=== PATIENT | male | born 1960 | race Caucasian/White ===

== ENCOUNTER 2023-01-27 18:57 | Inpatient (IN) | payer MEDICARE, OTHER ==
--- NOTE | 2023-01-27 20:28 | ED ---
General Adult HPI - General Chief complaint: Shortness of Breath Stated complaint: L Hip Pain Time Seen by Provider: 01/27/23 19:01 Source: patient Mode of arrival: EMS Limitations: no limitations - History of Present Illness Initial comments: Ricky is a chronically ill 62-year-old diabetic him to our hospital as a transfer from outside hospital. Patient has a history of previous stroke with left-sided deficits, end-stage renal disease on dialysis. Over the past few months he's had recurrent ascites and pleural effusions requiring drainage. He was recently admitted at [facility] however was not able to be transferred back there today due to capacity. Patient was at [facility] and had some worsening shortness of breath and feeling unwell, she transferred outside hospital where workup revealed he had recurrent pleural effusions as well as whiteout of one lung suggestive of possible mucous plugging. Patient was transferred here for evaluation by pulmonology and nephrology. Patient complains of pain in her left hip from a bedsore and pain in his right arm from an IV that infiltrated in route to the hospital. Denies chest pain - Related Data Allergies Allergy/AdvReac Type Severity Reaction Status Date / Time clindamycin Allergy Rash/Hives Verified 01/27/23 19:50 doxycycline Allergy Rash/Hives Verified 01/27/23 19:50 ketorolac [From Toradol] Allergy Swelling Verified 01/27/23 19:25 methadone Allergy Rash/Hives Verified 01/27/23 19:25 metoclopramide [From Reglan] Allergy Swelling Verified 01/27/23 19:25 morphine Allergy Swelling Verified 01/27/23 19:50 nalbuphine [From Nubain] Allergy Swelling Verified 01/27/23 19:25 prochlorperazine Allergy Swelling Verified 01/27/23 19:25 [From Compazine] sertraline [From Zoloft] Allergy Unknown Verified 01/27/23 19:25 sulfamethoxazole Allergy Swelling Verified 01/27/23 19:25 [From Bactrim] tramadol [From Ultram] Allergy Swelling Verified 01/27/23 19:25 trimethoprim [From Bactrim] Allergy Swelling Verified 01/27/23 19:25 acetaminophen AdvReac Unknown Verified 01/27/23 19:50 [From Benadryl Allergy/Cold] blue dye AdvReac Unknown Verified 01/27/23 19:50 bumetanide [From Bumex] AdvReac Wheezing Verified 01/27/23 19:50 butorphanol AdvReac Swelling Verified 01/27/23 19:50 cephalexin [From Keflex] AdvReac Nausea Verified 01/27/23 19:50 diphenhydramine AdvReac Unknown Verified 01/27/23 19:50 [From Benadryl Allergy/Cold] lidocaine AdvReac Nausea & Verified 01/27/23 19:50 Vomiting phenylephrine AdvReac Unknown Verified 01/27/23 19:50 [From Benadryl Allergy/Cold] promethazine AdvReac Itching Verified 01/27/23 19:50 trimethobenzamide AdvReac Unknown Verified 01/27/23 19:50 altaryl Allergy Swelling Uncoded 01/27/23 19:25 yellow dye+ci Pigment Blue 63 AdvReac Unknown Uncoded 01/27/23 19:25 Review of Systems ROS Statement: Those systems with pertinent positive or pertinent negative responses have been documented in the HPI. ROS Other: All systems not noted in ROS Statement are negative. Past Medical History Past Medical History: COPD, CVA/TIA, Diabetes Mellitus, GERD/Reflux Additional Past Medical History / Comment(s): Allergic rhinitis, Balanitis, Basal cell carcinoma, bilateral epidymitis, cellulitis to head, cervical radiculopathy, chronic lower back pain, chronic neck pain, CVA with deficits to left side, PVD, Dialysis (Tue, Th, Sat), DVT, dysphasia, fatty liver, foot drop, gastritis, glaucoma, gout, Past Surgical History: Cholecystectomy Additional Past Surgical History / Comment(s): colonoscopy, decompression of ulnar nerve (left), Direct lateral lumbar interbody fusion, EGD, fusion anterior cervical spine, right knee arthroscopy, lumbar fusion, insertion spinal cord stimulator, lithotrisy, Past Psychological History: Anxiety, Depression Smoking Status: Never smoker Past Alcohol Use History: None Reported Past Drug Use History: None Reported General Exam - General Exam Comments Initial Comments: Physical Exam GENERAL: Chronically ill appearing HENT: Normocephalic, Atraumatic. EYES: PERRL, EOMI PULMONARY: Tachypnea Decreased breath sounds CARDIOVASCULAR: RRR ABDOMEN: Soft SKIN: Pale Left buttocks decub : Deferred NEUROLOGIC: Patient is alert and oriented x3. Left side deficits from previous stroke MUSCULOSKELETAL: Left sided deficits Limitations: no limitations Course Vital Signs 01/27/23 01/27/23 01/27/23 19:02 20:00 21:00 Temperature 98.2 F Pulse Rate 93 90 Respiratory 18 18 Rate Blood Pressure 124/60 137/65 O2 Sat by Pulse 100 100 Oximetry 01/27/23 21:17 Temperature Pulse Rate Respiratory 22 Rate Blood Pressure O2 Sat by Pulse Oximetry Medical Decision Making - Medical Decision Making Was pt. sent in by a medical professional or institution (, [facility], MEDICARE SALES EXECUTIVE, urgent care, hospital, or [facility]...) When possible be specific @Yes transfer from outside facility Did you speak to anyone other than the patient for history (EMS, parent, family, police, friend...)? What history was obtained from this source @ -EMS, transferring physician Dr Galindo Did you review nursing and triage notes (agree or disagree)? Why? @ -I reviewed and agree with nursing and triage notes Were old charts reviewed (outside hosp., previous admission, EMS record, old EKG, old radiological studies, urgent care reports/EKG's, [facility] records)? Report findings @ Transfer packet reviewed Differential Diagnosis (chest pain, altered mental status, abdominal pain women, abdominal pain men, vaginal bleeding, weakness, fever, dyspnea, syncope, headache, dizziness, GI bleed, back pain, seizure, CVA, palpatations, mental health)? @ -not applicable EKG interpreted by me (3pts min.). @ -As above X-rays interpreted by me (1pt min.). @ -None done CT interpreted by me (1pt min.). @ -None done U/S interpreted by me (1pt. min.). @ -None done What testing was considered but not performed or refused? (CT, X-rays, U/S, labs)? Why? @ -None What meds were considered but not given or refused? Why? @ Antibiotics - patient received prior to arrival Did you discuss the management of the patient with other professionals (professionals i.e. [facility] Reynolds, MEDICARE SALES EXECUTIVE, lab, RT, psych nurse, high school social science teacher, air tank assembler, teacher, customs officer, continuous pillowcase cutter)? Give summary @ -No Was smoking cessation discussed for >3mins.? @ -No Was critical care preformed (if so, how long)? @ -No Were there social determinants of health that impacted care today? How? (Homelessness, low income, unemployed, alcoholism, drug addiction, bang sportation, low edu. Level, literacy, decrease access to med. care, senior living, rehab)? @ -No Was there de-escalation of care discussed even if they declined (Discuss DNR or withdrawal of care, Hospice)? DNR status @ yes, patient wants to remain full code What co-morbidities impacted this encounter? (DM, HTN, Smoking, COPD, CAD, Cancer, CVA, ARF, Chemo, Hep., AIDS, mental health diagnosis, sleep apnea, morbid obesity)? @ CVA, ARF, dialysis Was patient admitted / discharged? Hospital course, mention meds given and route, prescriptions, significant lab abnormalities, going to OR and other pertinent info. @Admit Patient was seen, repeat labs obtained - at baseline, chronic anemia, CKD Patient admitted to [facility] with nephrology and pulmonology on consult for management Undiagnosed new problem with uncertain prognosis? @ -No Drug Therapy requiring intensive monitoring for toxicity (Heparin, Nitro, Insulin, Cardizem)? @ -No Were any procedures done? @ -No Diagnosis/symptom? @ Pleural effusion Acute, or Chronic, or Acute on Chronic? @ Acute on chronic Uncomplicated (without systemic symptoms) or Complicated (systemic symptoms)? @ -default Side effects of treatment? @ -No Exacerbation, Progression, or Severe Exacerbation? @ -No Poses a threat to life or bodily function? How? (Chest pain, [place], [place], pneumonia, PE, COPD, DKA, ARF, appy, cholecystitis, CVA, Diverticulitis, Homicidal, Suicidal, threat to staff... and all critical care pts) @ -No - Lab Data Result diagrams: 01/27/23 21:02 01/27/23 21:02 Disposition Clinical Impression: ESRD (end stage renal disease), Pleural effusion, Pneumonia Disposition: ADMITTED IP TO THIS [facility] Condition: Serious
[2023-01-27] MEDS ORDERED: NALOXONE 0.4 MG/ML 1 ML VIAL IV PRN (20:29)
[2023-01-27 21:22] LABS: Anisocytosis Slight; Basophils % (A) 0 %; Eosinophils # (A) 0.1 k/uL (0-0.7); Eosinophils % (A) 2 %; HCT 24.7 % (39.0-53.0); HGB 7.9 gm/dL (13.0-17.5); Hypochromasia Marked; Lymphocytes # (A) 0.4 k/uL (1.0-4.8); Lymphocytes % (A) 7 %; MCH 31.8 pg (25.0-35.0); MCHC 32.1 g/dL (31.0-37.0); MCV 99.1 fL (80.0-100.0); Macrocytosis Slight; Mean Platelet Volume 7.1; Monocytes # (A) 0.3 k/uL (0-1.0); Monocytes % (A) 5 %; Neutrophils # (A) 4.7 k/uL (1.3-7.7); Neutrophils % (A) 83 %; Platelet Count 241 k/uL (150-450); Poikilocytosis Moderate; RBC 2.49 m/uL (4.30-5.90); RDW 17.3 % (11.5-15.5); WBC 5.6 k/uL (3.8-10.6)
[2023-01-27 21:30] LABS: ALT 36 U/L (4-49); AST 46 U/L (17-59); African American GFR (CKD) 44 (>60 ml/min/1.73 sqM); Albumin 3.1 g/dL (3.5-5.0); Alkaline Phosphatase 473 U/L (38-126); Anion Gap 8 mmol/L; Blood Urea Nitrogen 9 mg/dL (9-20); Calcium 8.2 mg/dL (8.4-10.2); Carbon Dioxide 30 mmol/L (22-30); Chloride 97 mmol/L (98-107); Glucose 118 mg/dL (74-99); Non-African American GFR(CKD) 38 (>60 ml/min/1.73 sqM); Potassium 3.6 mmol/L (3.5-5.1); Sodium 135 mmol/L (137-145); Total Bilirubin 0.4 mg/dL (0.2-1.3); Total Protein 6.5 g/dL (6.3-8.2)
[2023-01-27 21:35] LABS: INR 0.9 (<1.2); Partial Thromboplastin Time 29.4 sec (22.0-30.0); Prothrombin Time 10.2 sec (10.0-12.5)
[2023-01-27] MEDS: ONDANSETRON 4 MG/2 ML VIAL IVP PRN (23:07)
[2023-01-28] MEDS ORDERED: MELATONIN 5 MG TABLET PO PRN (00:11)
[2023-01-28] MEDS ORDERED: CYCLOBENZAPRINE 5 MG TAB PO PRN (00:12)
[2023-01-28] MEDS: hydrOXYzine HCL 25 MG TAB PO PRN ×2 (00:40→14:14)
[2023-01-28] MEDS: HYDROmorphone 1 MG/ML 1 ML SYRINGE IVP PRN ×3 (00:40→08:42)
[2023-01-28 05:11] LABS: Glucose,Whole Blood 210 mg/dL (70-110)
[2023-01-28] MEDS ORDERED: ALBUTEROL NEBULIZED 2.5 MG/3 ML INHALATION PRN (05:53)
[2023-01-28] MEDS: INSULIN ASPART (NovoLOG) 100 UNIT/ML VIAL SQ SCH ×4 (06:43→21:12)
[2023-01-28] MEDS: ONDANSETRON 4 MG/2 ML VIAL IVP PRN ×2 (06:43→18:02)
--- NOTE | 2023-01-28 08:16 | XR ---
EXAMINATION TYPE: XR chest 1V portable DATE OF EXAM: 01/28/2023 8:02 AM CLINICAL INDICATION:Male, 62 years old with history of pleural effusion; COMPARISON: None TECHNIQUE: XR chest 1V portable Frontal view of the chest. FINDINGS: Lungs/Pleura: Large left pleural effusion with associated atelectasis. Areas blunting of the right co stophrenic angle. Pulmonary vascularity: Unremarkable. Heart/mediastinum: Cardiomediastinal silhouette is unremarkable. Musculoskeletal: No acute osseous pathology. There is fixation hardware in the lower cervical spine. Other findings: Vascular clip projects within the left axilla. Stimulation leads project over the spi ne. Lines/Tubes: Right internal jugular central venous catheter with distal tip at the cavoatrial junction. IMPRESSION: 1. Large left and small right pleural effusions. 2. Right central venous catheter appropriate position.
--- NOTE | 2023-01-28 09:18 | P.HPIM ---
History of Present Illness This is a pleasant 62 years old male with past medical history of end-stage renal disease on hemodialysis for the last 3 years, COPD, CVA/TIA, diabetes mellitus, GERD, basal cell carcinoma, cervical radiculopathy, chronic low back p ain, chronic neck pain, CVA with deficit to the left side, peripheral vascular disease, DVT, dysphagia, fatty liver, foot drop, gastritis,,, gout Patient presents from [facility] for shortness of breath, patient says that she's been having this shortness of breath for 2 weeks on and off associated with cough and yellowish phlegm Patient says that he has left-sided pain and cleared his neck chest abdomen and left hip. He says that he takes Dilaudid 4 mg every 4 hours as needed. He says that he tolerates diet well and he has regular bowel movement this morning No new headache dizziness and weakness or numbness. Hemodynamically he is a stable Hemoglobin 7.9, creatinine 1.8. Baseline creatinine is unknown. Review of Systems Review of systems CONSTITUTIONAL: No fever, no malaise, no fatigue. HEENT: No recent visual problems or hearing problems. Denied any sore throat. CARDIOVASCULAR: No orthopnea, PND, no palpitations, no syncope. PULMONARY: No shortness of breath, no cough, no hemoptysis. GASTROINTESTINAL: No diarrhea, no nausea, no vomiting, no abdominal pain. Normoactive bowel sounds. NEUROLOGICAL: No headaches, no weakness, no numbness. HEMATOLOGICAL: Denies any bleeding or petechiae. GENITOURINARY: Denies any burning micturition, frequency, or urgency. MUSCULOSKELETAL/RHEUMATOLOGICAL: Denies any joint pain, swelling, or any muscle pain. ENDOCRINE: Denies any polyuria or polydipsia. Past Medical History Past Medical History: COPD, CVA/TIA, Diabetes Mellitus, GERD/Reflux Additional Past Medical History / Comment(s): Allergic rhinitis, Balanitis, Basal cell carcinoma, bilateral epidymitis, cellulitis to head, cervical radicu lopathy, chronic lower back pain, chronic neck pain, CVA with deficits to left side, PVD, Dialysis (e, , Sun), DVT, dysphasia, fatty liver, foot drop, gastritis, glaucoma, gout, History of Any Multi-Drug Resistant Organisms: None Reported Past Surgical History: Cholecystectomy Additional Past Surgical History / Comment(s): colonoscopy, decompression of ulnar nerve (left), Direct lateral lumbar interbody fusion, EGD, fusion anterior cervical spine, right knee arthroscopy, lumbar fusion, insertion spinal cord stimulator, lithotrisy, Past Psychological History: Anxiety, Depression Smoking Status: Never smoker Past Alcohol Use History: None Reported Past Drug Use History: None Reported Medications and Allergies Allergies Allergy/AdvReac Type Severity Reaction Status Date / Time clindamycin Allergy Rash/Hives Verified 01/27/23 19:50 doxycycline Allergy Rash/Hives Verified 01/27/23 19:50 ketorolac [From Toradol] Allergy Swelling Verified 01/27/23 19:25 methadone Allergy Rash/Hives Verified 01/27/23 19:25 metoclopramide [From Reglan] Allergy Swelling Verified 01/27/23 19:25 morphine Allergy Swelling Verified 01/27/23 19:50 nalbuphine [From Nubain] Allergy Swelling Verified 01/27/23 19:25 prochlorperazine Allergy Swelling Verified 01/27/23 19:25 [From Compazine] sertraline [From Zoloft] Allergy Unknown Verified 01/27/23 19:25 sulfamethoxazole Allergy Swelling Verified 01/27/23 19:25 [From Bactrim] tramadol [From Ultram] Allergy Swelling Verified 01/27/23 19:25 trimethoprim [From Bactrim] Allergy Swelling Verified 01/27/23 19:25 acetaminophen AdvReac Unknown Verified 01/27/23 19:50 [From Benadryl Allergy/Cold] blue dye AdvReac Unknown Verified 01/27/23 19:50 bumetanide [From Bumex] AdvReac Wheezing Verified 01/27/23 19:50 butorphanol AdvReac Swelling Verified 01/27/23 19:50 cephalexin [From Keflex] AdvReac Nausea Verified 01/27/23 19:50 diphenhydramine AdvReac Unknown Verified 01/27/23 19:50 [From Benadryl Allergy/Cold] lidocaine AdvReac Nausea & Verified 01/27/23 19:50 Vomiting phenylephrine AdvReac Unknown Verified 01/27/23 19:50 [From Benadryl Allergy/Cold] promethazine AdvReac Itching Verified 01/27/23 19:50 trimethobenzamide AdvReac Unknown Verified 01/27/23 19:50 altaryl Allergy Swelling Uncoded 01/27/23 19:25 yellow dye+ci Pigment Blue 63 AdvReac Unknown Uncoded 01/27/23 19:25 Physical Exam Vitals: Vital Signs Temp Pulse Pulse Resp BP BP Pulse Ox 01/28/23 00:50 98.1 F 91 18 105/52 100 01/27/23 21:17 22 01/27/23 21:00 90 18 137/65 100 01/27/23 20:00 93 18 124/60 100 01/27/23 19:02 98.2 F Intake and Output 01/27/23 01/27/23 01/28/23 14:59 22:59 06:59 Output Total 2 Balance -2 Output: Stool 2 Other: Voiding Method Diaper Weight 120.202 kg 120.202 kg GENERAL: The patient is alert and oriented x3, not in any acute distress. Well developed, well nourished. HEENT: Pupils are round and equally reacting to light. EOMI. No scleral icterus. No conjunctival pallor. Normocephalic, atraumatic. No pharyngeal erythema. No thyromegaly. CARDIOVASCULAR: S1 and S2 present. No murmurs, rubs, or gallops. PULMONARY: Chest is clear to auscultation, no wheezing , no crackles. ABDOMEN: Soft, nontender, nondistended, normoactive bowel sounds. No palpable organomegaly. MUSCULOSKELETAL: No joint swelling or deformity. EXTREMITIES: No cyanosis, clubbing, or pedal edema. NEUROLOGICAL: Gross neurological examination did not reveal any focal deficits. SKIN: No rashes. no petechiae. Results CBC & Chem 7: 01/27/23 21:02 01/27/23 21:02 Labs: Abnormal Lab Results - Last 24 Hours (Table) 01/27/23 01/27/23 01/28/23 Range/Units 21:02 21:02 05:10 RBC 2.49 L (4.30-5.90) m/uL Hgb 7.9 L (13.0-17.5) gm/dL Hct 24.7 L (39.0-53.0) % RDW 17.3 H (11.5-15.5) % Lymphocytes # 0.4 L (1.0-4.8) k/uL Sodium 135 L (137-145) mmol/L Chloride 97 L (98-107) mmol/L Creatinine 1.83 H (0.66-1.25) mg/dL Glucose 118 H (74-99) mg/dL POC Glucose (mg/dL) 210 H (70-110) mg/dL Calcium 8.2 L (8.4-10.2) mg/dL Alkaline Phosphatase 473 H (38-126) U/L Albumin 3.1 L (3.5-5.0) g/dL Thrombosis Risk Factor Assmnt - Choose All That Apply Any of the Below Risk Factors Present?: Yes Each Factor Represents 1 point: Abnormal pulmonary function (COPD) Other Risk Factors: Yes Each Risk Factor Represents 2 Points: Age 61-74 years Thrombosis Risk Factor Assessment Total Risk Factor Score: 3 Thrombosis Risk Factor Assessment Level: Moderate Risk Assessment and Plan Assessment: Left pleural effusion, almost complete opacification Ongoing left side arthritis pain, it look chronic Chronic pain syndrome on oral Dilaudid at home 4 milligrams every 4 hours end-stage renal disease on hemodialysis for the last 3 years COPD History of CVA/TIA with left hemiparesis diabetes mellitus GERD History of basal cell carcinoma cervical radiculopathy chronic low back pain chronic neck pain peripheral vascular disease History of DVT dysphagia fatty liver foot drop gastritis gout Plan: Continue with oxygen Continue with a bronchodilator Pulmonary team consult Nephrology team consulted for dialysis and kidney disease I have a lengthy discussion with the patient regarding using his Dilaudid he wanted to keep it 4 mg every 4 hours intravenously explained for him the risks of opioids including but not limited to the risk of addiction, respiratory depression, and/or is understanding and he agrees to allow her to 0.5 mg every 3 hours. We'll order a left hip x-ray as he states is been going on for the last 3-4 days, he has history of fall last time on August 2022 Labs and medication were reviewed.. Continue same treatment. Continue with symptomatic treatment. Resume home medication. Monitor labs and vitals. DVT and GI prophylaxis. Further recommendations as per clinical course of the patient DVT prophylaxis: Subcutaneous heparin GI Prophylaxis: Pepcid Prognosis is guarded
--- NOTE | 2023-01-28 10:13 | XR ---
EXAMINATION TYPE: XR Hip Limited LT DATE OF EXAM: 01/28/2023 10:09 AM CLINICAL INDICATION:Male, 62 years old with history of pain; [facility] COMPARISON: None. TECHNIQUE: XR Hip Limited LT; hip was examined in single frontal view of the left hip. FINDINGS: Limited exam secondary to technique. No obvious fracture. There is high density material in the rectum. No evidence for acute process, joint dislocation or significant soft tissue swelling. IMPRESSION: Limited exam secondary to overpenetration. No obvious acute process.
[2023-01-28 11:19] LABS: Glucose,Whole Blood 220 mg/dL (70-110)
--- NOTE | 2023-01-28 11:20 | P.NPCON ---
History of Present Illness - Reason for Consult end stage renal disease - History of Present Illness Patient is a 62-year-old male with end-stage renal disease maintained on hemodialysis on a Sunday schedule. Patient currently has a left IJ permacath. His access in the left arm is not functional currently. Patient dialyzes out of town in [place]. No significant urine output. He is admitted to the hospital with complaints of shortness of breath. Patient did have his hemodialysis yesterday with UF of about 3 L per patient. No history of fever or chills. Chest x-ray shows large left and small right pleural effusions. Review of Systems As per HPI Past Medical History Past Medical History: COPD, CVA/TIA, Diabetes Mellitus, GERD/Reflux Additional Past Medical History / Comment(s): Allergic rhinitis, Balanitis, Basal cell carcinoma, bilateral epidymitis, cellulitis to head, cervical radiculopathy, chronic lower back pain, chronic neck pain, CVA with deficits to left side, PVD, Dialysis (Sun, , Sun), DVT, dysphasia, fatty liver, foot drop, gastritis, glaucoma, gout, History of Any Multi-Drug Resistant Organisms: None Reported Past Surgical History: Cholecystectomy Additional Past Surgical History / Comment(s): colonoscopy, decompression of ulnar nerve (left), Direct lateral lumbar interbody fusion, EGD, fusion anterior cervical spine, right knee arthroscopy, lumbar fusion, insertion spinal cord st imulator, lithotrisy, Past Psychological History: Anxiety, Depression Smoking Status: Never smoker Past Alcohol Use History: None Reported Past Drug Use History: None Reported Medications and Allergies Allergies Allergy/AdvReac Type Severity Reaction Status Date / Time clindamycin Allergy Rash/Hives Verified 01/27/23 19:50 doxycycline Allergy Rash/Hives Verified 01/27/23 19:50 ketorolac [From Toradol] Allergy Swelling Verified 01/27/23 19:25 methadone Allergy Rash/Hives Verified 01/27/23 19:25 metoclopramide [From Reglan] Allergy Swelling Verified 01/27/23 19:25 morphine Allergy Swelling Verified 01/27/23 19:50 nalbuphine [From Nubain] Allergy Swelling Verified 01/27/23 19:25 prochlorperazine Allergy Swelling Verified 01/27/23 19:25 [From Compazine] sertraline [From Zoloft] Allergy Unknown Verified 01/27/23 19:25 sulfamethoxazole Allergy Swelling Verified 01/27/23 19:25 [From Bactrim] tramadol [From Ultram] Allergy Swelling Verified 01/27/23 19:25 trimethoprim [From Bactrim] Allergy Swelling Verified 01/27/23 19:25 acetaminophen AdvReac Unknown Verified 01/27/23 19:50 [From Benadryl Allergy/Cold] blue dye AdvReac Unknown Verified 01/27/23 19:50 bumetanide [From Bumex] AdvReac Wheezing Verified 01/27/23 19:50 butorphanol AdvReac Swelling Verified 01/27/23 19:50 cephalexin [From Keflex] AdvReac Nausea Verified 01/27/23 19:50 diphenhydramine AdvReac Unknown Verified 01/27/23 19:50 [From Benadryl Allergy/Cold] lidocaine AdvReac Nausea & Verified 01/27/23 19:50 Vomiting phenylephrine AdvReac Unknown Verified 01/27/23 19:50 [From Benadryl Allergy/Cold] promethazine AdvReac Itching Verified 01/27/23 19:50 trimethobenzamide AdvReac Unknown Verified 01/27/23 19:50 altaryl Allergy Swelling Uncoded 01/27/23 19:25 yellow dye+ci Pigment Blue 63 AdvReac Unknown Uncoded 01/27/23 19:25 Physical Exam Vitals: Vital Signs Temp Pulse Pulse Resp BP BP Pulse Ox 01/28/23 09:58 84 20 01/28/23 07:31 97.3 F L 84 19 135/76 100 01/28/23 00:50 98.1 F 91 18 105/52 100 01/27/23 21:17 22 01/27/23 21:00 90 18 137/65 100 01/27/23 20:00 93 18 124/60 100 01/27/23 19:02 98.2 F Intake and Output 01/27/23 01/28/23 01/28/23 22:59 06:59 14:59 Output Total 2 2 Balance -2 -2 Output: Stool 2 2 Other: Voiding Method Diaper Toilet Diaper Weight 120.202 kg 120.202 kg Patient is awake, comfortable, in no acute distress Alert oriented 3 Examination of the heart S1 and S2 Examination of the lungs are clear breath sounds at the bases Abdomen is soft obese nontender Examination of the lower extremity shows no significant edema PRODUCT CONSULTANT exam grossly intact. Patient's left lower extremity is slightly weaker Results - Lab Results Most recent lab results Calcium 8.2 mg/dL (8.4-10.2) L 01/27/23 21:02 01/27/23 21:02 01/27/23 21:02 Assessment and Plan Assessment: 1. End-stage renal disease on hemodialysis on a Sunday schedule via left IJ permacath. Patient dialyzes out of [place] 2. Volume overload 3. Acute hypoxic respiratory failure secondary to volume overload and large left pleural effusion. 4. Anemia of chronic disease rule out iron deficiency 5. History of CVA with left hemiparesis Plan: Hemodialysis in a.m. Goal UF about 3-3.5 L as tolerated Check phosphorus Check iron profile Add Aranesp next Thank you for the consultation. We will continue to follow the patient with you during his hospitalization.
--- NOTE | 2023-01-28 11:28 | P.CNPUL ---
History of Present Illness Consult date: 01/28/23 Requesting physician: Americo Wallace Reason for consult: dyspnea, pleural effusion, abnormal CXR/CT Chief complaint: Shortness of breath History of present illness: This is a 62-year-old male patient with a known history of CVA with left-sided weakness, diabetes mellitus, chronic obstructive pulmonary disease, end-stage renal disease receiving hemodialysis, anxiety/depression, previous pleural effusions with thoracentesis most recently 3 weeks ago at [facility] in [place]. Yesterday he was seen at a outside hospital and chest x-ray revealed near complete opacification of the left lung. He was to be transferred to back to [facility] however no beds were available and he was transferred here. Chest x-ray reveals a large left and small right pleural effusion. Hemodialysis cat heter in the right chest. White count 5.6. Hemoglobin 7.9. Platelets 241. Sodium 135. Potassium 3.6. Bicarb 30. BUN 9. Creatinine 1.83. Glucose 118. He is seen today in consultation on the regular medical floor. He is currently resting fairly comfortably in bed. Awake and alert in no acute distress. He is maintaining O2 saturations up to 100% on 5 L/m per nasal cannula. His been afeb rile. Hemodynamically stable. He has been basically bedbound and is difficult to sit up. He has pressure ulcers as well. Review of Systems REVIEW OF SYSTEMS: CONSTITUTIONAL: Denies any recent significant weight loss or weight gain. EYES: Denies change in vision. EARS, NOSE, MOUTH, THROAT: Denies headaches, denies sore throat. CARDIOVASCULAR: Denies chest pain, palpitations or syncopal episodes. RESPIRATORY: Positive for shortness of breath, cough, congestion no hemoptysis. GASTROINTESTINAL: Denies change in appetite, denies abdominal pain GENITOURINARY: Denies hematuria, denies infections. MUSKULOSKELETAL: Positive for left hip pain. INTEGUMENTARY: Denies rash, denies eczema. NEUROLOGICAL: Denies recent memory loss, no recent seizure activity. PSYCHIATRIC: Denies anxiety, denies depression. HEMATOLOGIC/LYMPHATIC: Denies anemia, denies enlarged lymph nodes. Past Medical History Past Medical History: COPD, CVA/TIA, Diabetes Mellitus, GERD/Reflux Additional Past Medical History / Comment(s): Allergic rhinitis, Balanitis, Basal cell carcinoma, bilateral epidymitis, cellulitis to head, cervical radiculopathy, chronic lower back pain, chronic neck pain, CVA with deficits to left side, PVD, Dialysis (Tue, Th, Sat), DVT, dysphasia, fatty liver, foot drop, gastritis, glaucoma, gout, History of Any Multi-Drug Resistant Organisms: None Reported Past Surgical History: Cholecystectomy Additional Past Surgical History / Comment(s): colonoscopy, decompression of ulnar nerve (left), Direct lateral lumbar interbody fusion, EGD, fusion anterior cervical spine, right knee arthroscopy, lumbar fusion, insertion spinal cord stimulator, lithotrisy, Past Psychological History: Anxiety, Depression Smoking Status: Never smoker Past Alcohol Use History: None Reported Past Drug Use History: None Reported Medications and Allergies Allergies Allergy/AdvReac Type Severity Reaction Status Date / Time clindamycin Allergy Rash/Hives Verified 01/27/23 19:50 doxycycline Allergy Rash/Hives Verified 01/27/23 19:50 ketorolac [From Toradol] Allergy Swelling Verified 01/27/23 19:25 methadone Allergy Rash/Hives Verified 01/27/23 19:25 metoclopramide [From Reglan] Allergy Swelling Verified 01/27/23 19:25 morphine Allergy Swelling Verified 01/27/23 19:50 nalbuphine [From Nubain] Allergy Swelling Verified 01/27/23 19:25 prochlorperazine Allergy Swelling Verified 01/27/23 19:25 [From Compazine] sertraline [From Zoloft] Allergy Unknown Verified 01/27/23 19:25 sulfamethoxazole Allergy Swelling Verified 01/27/23 19:25 [From Bactrim] tramadol [From Ultram] Allergy Swelling Verified 01/27/23 19:25 trimethoprim [From Bactrim] Allergy Swelling Verified 01/27/23 19:25 acetaminophen AdvReac Unknown Verified 01/27/23 19:50 [From Benadryl Allergy/Cold] blue dye AdvReac Unknown Verified 01/27/23 19:50 bumetanide [From Bumex] AdvReac Wheezing Verified 01/27/23 19:50 butorphanol AdvReac Swelling Verified 01/27/23 19:50 cephalexin [From Keflex] AdvReac Nausea Verified 01/27/23 19:50 diphenhydramine AdvReac Unknown Verified 01/27/23 19:50 [From Benadryl Allergy/Cold] lidocaine AdvReac Nausea & Verified 01/27/23 19:50 Vomiting phenylephrine AdvReac Unknown Verified 01/27/23 19:50 [From Benadryl Allergy/Cold] promethazine AdvReac Itching Verified 01/27/23 19:50 trimethobenzamide AdvReac Unknown Verified 01/27/23 19:50 altaryl Allergy Swelling Uncoded 01/27/23 19:25 yellow dye+ci Pigment Blue 63 AdvReac Unknown Uncoded 01/27/23 19:25 Physical Exam Vitals: Vital Signs Temp Pulse Pulse Resp BP BP Pulse Ox 01/28/23 09:58 84 20 01/28/23 07:31 97.3 F L 84 19 135/76 100 01/28/23 00:50 98.1 F 91 18 105/52 100 01/27/23 21:17 22 01/27/23 21:00 90 18 137/65 100 01/27/23 20:00 93 18 124/60 100 01/27/23 19:02 98.2 F Intake and Output 01/27/23 01/28/23 01/28/23 22:59 06:59 14:59 Output Total 2 2 Balance -2 -2 Output: Stool 2 2 Other: Voiding Method Diaper Toilet Diaper Weight 120.202 kg 120.202 kg GENERAL EXAM: Alert, 62-year-old male, chronically ill, on 5 L nasal cannula, fairly comfortable in no apparent distress. HEAD: Normocephalic. EYES: Normal reaction of pupils, equal size. NOSE: Clear with pink turbinates. THROAT: No erythema or exudates. NECK: No masses, no JVD. CHEST: No chest wall deformity. Right hemodialysis catheter in place LUNGS: Equal air entry with positive posterior bases. Diminished throughout the left lung. CVS: S1 and S2 normal with no audible murmur, regular rhythm. ABDOMEN: No hepatosplenomegaly, normal bowel sounds, no guarding or rigidity. SPINE: No scoliosis or deformity SKIN: Pressure ulcers CENTRAL NERVOUS SYSTEM: Residual left-sided weakness, tone is normal in all 4 extremities. EXTREMITIES: There is one plus peripheral edema. No clubbing, no cyanosis. Peripheral pulses are intact. Results - Laboratory Findings CBC and BMP: 01/27/23 21:02 01/27/23 21:02 PT/INR, D-dimer PT 10.2 sec (10.0-12.5) 01/27/23 21:02 INR 0.9 (<1.2) 01/27/23 21:02 Abnormal lab findings: Abnormal Labs 01/27/23 01/27/23 01/28/23 21:02 21:02 05:10 RBC 2.49 L Hgb 7.9 L Hct 24.7 L RDW 17.3 H Lymphocytes # 0.4 L Sodium 135 L Chloride 97 L Creatinine 1.83 H Glucose 118 H POC Glucose (mg/dL) 210 H Calcium 8.2 L Alkaline Phosphatase 473 H Albumin 3.1 L - Diagnostic Findings Chest x-ray: image reviewed Assessment and Plan Assessment: Acute hypoxemic respiratory failure secondary to large left pleural effusion History of pleural effusions with previous thoracentesis most recently 3 weeks ago at [facility] and [place] End-stage renal disease receiving hemodialysis for approximately 3 years Anemia of suspected chronic disease History of CVA with left-sided weakness Left hip pain secondary to pressure ulcers, x-ray revealed no fracture or graft diabetes mellitus History of gastric esophageal reflux disease History of DVT History of spinal cord stimulator History of anxiety/depression [facility] resident, basically bedbound pressure ulcers Plan: The patient was seen and evaluated Chest x-ray, ultrasound of the chest, labs and medications reviewed Patient unable to be positioned for a safe bedside thoracentesis We'll consult interventional radiology Titrate the FiO2 as tolerated Continue on current hemodialysis schedule Heparin for DVT prophylaxis We will continue to follow and make further recommendations based on his clini camilo status I have personally seen and examined the patient, performed the documentation and the assessment and plan as written. Number of minutes spent on the visit: 20.
--- NOTE | 2023-01-28 11:34 | US ---
EXAMINATION TYPE: US chest DATE OF EXAM: 01/28/2023 Exam done portable COMPARISON: NONE CLINICAL INDICATION: Male, 62 years old with history of Markings for thoracentesis by pulmonary staff ; TECHNIQUE: Targeted ultrasound of the posterior lower bilateral hemithoraces EXAM MEASUREMENTS: Right Pleural Effusion pocket size: 4.0 cm Right skin surface to fluid distance: 5.8 cm Left: patient laying on left side for exam, states he is unable to lay on his right side and unable t o sit up to better see left pleural space, very limited visualization Right side marked for possible thoracentesis outside the dept. Left side not marked(due to limitations described above) for possible thoracentesis outside the dept. Pulmonologists are able to review the images in the patient?s EMR. IMPRESSIONS: Right pleural effusion marked for thoracentesis.
[2023-01-28] MEDS: HYDROmorphone 0.5 MG/0.5 ML SYRINGE IVP PRN ×4 (11:35→22:03)
[2023-01-28] MEDS: ALBUTEROL NEBULIZED 2.5 MG/3 ML INHALATION SCH ×3 (11:44→21:08)
[2023-01-28] MEDS ORDERED: ONDANSETRON 4 MG TAB PO PRN (13:38)
[2023-01-28] MEDS ORDERED: bisacodyL 10 MG SUPP RECTAL PRN (13:38)
[2023-01-28] MEDS ORDERED: CYCLOBENZAPRINE 10 MG TAB PO PRN (13:38)
[2023-01-28] MEDS ORDERED: polyethylene glycoL 3350 17 GM POWD.PACK PO PRN (13:38)
[2023-01-28] MEDS: DARBEPOETIN ALFA 60 MCG/0.3 ML SYRINGE SQ SCH (14:15)
[2023-01-28] MEDS: ARTIFICIAL TEARS-HYPROMELLOSE DROPS 15 ML BTL BOTH EYES SCH ×2 (14:15→22:02)
[2023-01-28 16:17] LABS: % Iron Saturation 46.09 (15.00-50.00)
[2023-01-28 17:08] LABS: Glucose,Whole Blood 129 mg/dL (70-110)
[2023-01-28 20:22] LABS: Glucose,Whole Blood 119 mg/dL (70-110)
[2023-01-28] MEDS ORDERED: HEPARIN SODIUM,PORCINE 5,000 UNIT/ML 1 ML VIAL SQ SCH (21:00)
[2023-01-28] MEDS: LACTULOSE 20 GM/30 ML CUP PO SCH (21:24)
[2023-01-28] MEDS: FAMOTIDINE 20 MG/2 ML VIAL IV SCH (21:24)
[2023-01-28] MEDS: MELATONIN 5 MG TABLET PO SCH (21:25)
[2023-01-28] MEDS: SENNOSIDES-DOCUSATE SODIUM 1 EACH TAB PO SCH (21:25)
[2023-01-28] MEDS: LEVOTHYROXINE 50 MCG TAB PO SCH (21:25)
[2023-01-28] MEDS: QUEtiapine 25 MG TAB PO SCH (21:25)
[2023-01-28] MEDS: MENTHOL-ZINC OXIDE OINT 113 GM TUBE TOPICAL SCH (22:03)
[2023-01-28] MEDS: SODIUM ZIRCONIUM CYCLOSILICATE 10 GM PACKET PO SCH (22:09)
[2023-01-29] MEDS: HYDROmorphone 0.5 MG/0.5 ML SYRINGE IVP PRN ×7 (00:25→21:48)
[2023-01-29] MEDS: hydrOXYzine HCL 25 MG TAB PO PRN ×2 (01:41→20:37)
[2023-01-29] MEDS: ONDANSETRON 4 MG/2 ML VIAL IVP PRN ×2 (03:41→18:47)
[2023-01-29 05:53] LABS: Glucose,Whole Blood 128 mg/dL (70-110)
[2023-01-29] MEDS: INSULIN ASPART (NovoLOG) 100 UNIT/ML VIAL SQ SCH ×4 (06:25→20:55)
[2023-01-29] MEDS: ARTIFICIAL TEARS-HYPROMELLOSE DROPS 15 ML BTL BOTH EYES SCH ×3 (06:37→20:36)
[2023-01-29] MEDS: FAMOTIDINE 20 MG/2 ML VIAL IV SCH ×2 (08:40→20:35)
[2023-01-29] MEDS: ENOXAPARIN 100 MG/ML SYRINGE SQ SCH ×2 (08:40→14:05)
[2023-01-29] MEDS: FOLIC ACID-VIT B COMPLEX-VIT C 1 CAP PO SCH (08:40)
[2023-01-29] MEDS: allopurinoL 100 MG TAB PO SCH (08:40)
[2023-01-29] MEDS: SENNOSIDES-DOCUSATE SODIUM 1 EACH TAB PO SCH ×2 (08:40→20:36)
[2023-01-29] MEDS: QUEtiapine 25 MG TAB PO SCH ×2 (08:40→20:36)
[2023-01-29] MEDS: MONTELUKAST 10 MG TAB PO SCH (08:40)
[2023-01-29] MEDS: LACTULOSE 20 GM/30 ML CUP PO SCH ×2 (08:40→20:36)
[2023-01-29] MEDS: MENTHOL-ZINC OXIDE OINT 113 GM TUBE TOPICAL SCH ×2 (08:41→20:37)
[2023-01-29] MEDS: ALBUTEROL NEBULIZED 2.5 MG/3 ML INHALATION SCH ×4 (09:04→21:02)
--- NOTE | 2023-01-29 11:18 | P.PN ---
Subjective Patient is seen for follow-up for end-stage renal disease. He scheduled for hemodialysis today and then again in a.m. to return to Sunday schedule. Complaining of nausea and abdominal pain. Objective - Vital Signs Vital signs: Vital Signs Temp 97.9 F 01/29/23 07:50 Pulse 80 01/29/23 09:20 Resp 22 01/29/23 07:50 BP 96/56 01/29/23 07:50 Pulse Ox 100 01/29/23 09:04 FiO2 Intake & Output 01/28/23 01/29/23 01/29/23 18:59 06:59 18:59 Output Total 2 Balance -2 Output: Stool 2 Other: Voiding Method Toilet Toilet Diaper Diaper # Voids 0 # Bowel Movements 1 0 - Exam Patient is awake, comfortable, alert oriented 3. No acute distress Examination of the heart S1 and S2 Examination of the lungs decreased breath sounds at the bases Abdomen is soft obese mild tenderness in the left lower quadrant and mid quadrant Examination of lower extremity shows trace edema bilaterally. Patient has left hemiparesis. - Labs CBC & Chem 7: 01/27/23 21:02 01/27/23 21:02 Labs: Abnormal Lab Results - Last 24 Hours (Table) 01/28/23 01/28/23 01/28/23 Range/Units 11:18 11:40 17:07 POC Glucose (mg/dL) 220 H 129 H (70-110) mg/dL Iron 59 L (65-175) UG/DL TIBC 128 L (228-460) UG/DL Transferrin 91.6 L (204.0-354.0) mg/dL 01/28/23 01/29/23 Range/Units 20:21 05:51 POC Glucose (mg/dL) 119 H 128 H (70-110) mg/dL Iron (65-175) UG/DL TIBC (228-460) UG/DL Transferrin (204.0-354.0) mg/dL Assessment and Plan Assessment: 1. End-stage renal disease on hemodialysis on a Sunday schedule via left IJ permacath. Patient dialyzes out of [place] 2. Volume overload 3. Acute hypoxic respiratory failure secondary to volume overload and large left pleural effusion. 4. Anemia of chronic disease rule out iron deficiency 5. History of CVA with left hemiparesis Plan: Hemodialysis today and then again in a.m. No need for phosphate binders as phosphorus is 3.0.
[2023-01-29 11:23] LABS: Glucose,Whole Blood 132 mg/dL (70-110)
[2023-01-29] MEDS ORDERED: LIDOCAINE 1% INJ 10MG/ML (20 ML MDV) ONE (11:56)
[2023-01-29] MEDS ORDERED: PROPOFOL 10 MG/ML 20 ML VIAL IV ONE (11:56)
[2023-01-29] MEDS ORDERED: KETAMINE HCL IN 0.9 % NACL 50 MG/5 ML SYRINGE ONE (11:56)
[2023-01-29] MEDS ORDERED: PHENYLEPHRINE-0.9% NACL SYG 1,000 MCG/10 ML SYRINGE ONE (11:56)
[2023-01-29] MEDS ORDERED: LACTATED RINGERS 1,000 ML IV ONE (12:18)
[2023-01-29] MEDS ORDERED: LIDOCAINE 2% SYG (PF) 100 MG/5 ML MISCELLANE ONE (12:20)
--- NOTE | 2023-01-29 12:59 | PCN ---
PROCEDURE NOTE PROCEDURES PERFORMED: Bronchoscopy, airway examination, therapeutic lavage, and BAL lingula. PREOPERATIVE DIAGNOSIS: Lung collapse, left lung, secondary to mucus plugging. POSTOPERATIVE DIAGNOSIS: Lung collapse, left lung, secondary to mucus plugging. SAP ABAP PROGRAMMER: Dr. Oliver. FIRST RN LACTATION CONSULTANT: Dr. Rachel Dolan. The patient's procedure took place in [facility], room #2. There was informed consent and universal timeout. Dr. Burch from Anesthesia along with SENIOR BUSINESS DEVELOPMENT ANALYST provided general anesthesia. After the patient was adequately sedated and being fully monitored, the bronchoscope was inserted through the left nostril. It passed through the left nasopharynx into the oropharynx. The hypopharynx was identified and topicalized. The structures in the hypopharynx including anterior commissure, true cords, false cords, arytenoids, piriform sinuses, right and left, vallecula, all appeared relatively normal. The glottic opening was topicalized. The bronchoscope was pushed through the glottic opening into the trachea. There were thick mucus plugs throughout the trachea. They were suctioned with some difficulty. I had to keep on coming out of the airway with the scope, to relieve the mucus that was stuck in the scope. Once I was able to remove the thick mucus that was obstructing the trachea, I was able to get down and look at the right lung. The right upper lobe and its 3 segments, right middle lobe and its 2 segments, right lower lobe and its 5 segments were all normal. On the left side, there were thick mucus plugs that were noted at the left mainstem. They were suctioned with some difficulty with a saline, and topicalization with lidocaine. Next, all mucus plugs on the left side were suctioned. Next, the bronchoscope was wedged into the lingula. We did a formal BAL. The fluid will be sent for analysis. Additional mucus plugging and secretions and mucus were suctioned with the aid of saline. The patient tolerated the procedure well. The bronchoscope was withdrawn and the patient will be recovered. There was no immediate complication. The fluid will be sent for analysis including cytology, and microbiology. MMODL / IJN: [id number] /
[2023-01-29] MEDS: MIDODRINE 5 MG TAB PO PRN ×2 (13:20→18:44)
--- NOTE | 2023-01-29 14:47 | P.PN ---
Subjective Progress Note Date: 01/29/23 This is a 62-year-old male patient with a known history of CVA with left-sided weakness, diabetes mellitus, chronic obstructive pulmonary disease, end-stage renal disease receiving hemodialysis, anxiety/depression, previous pleural effusions with thoracentesis most recently 3 weeks ago at [facility] in [place]. Yesterday he was seen at a outside hospital and chest x-ray revealed near complete opacification of the left lung. He was to be transferred to back to [facility] however no beds were available and he was transferred here. Chest x-ray reveals a large left and small right pleural effusion. Hemodialysis catheter in the right chest. White count 5.6. Hemoglobin 7.9. Platelets 241. Sodium 135. Potassium 3.6. Bicarb 30. BUN 9. Creatinine 1.83. Glucose 118. He is seen today in consultation on the regular medical floor. He is currently resting fairly comfortably in bed. Awake and alert in no acute distress. He is maintaining O2 saturations up to 100% on 5 L/m per nasal cannula. His been afebrile. Hemodynamically stable. He has been basically bedbound and is difficult to sit up. He has pressure ulcers as well. The patient is seen today 01/29/2023 in follow-up on the regular medical floor. He is resting comfortably in bed. Awake and alert in no acute distress. Maintaining O2 saturations up to 100% on 5 L/m per nasal cannula. He's been afebrile. Hemodynamically stable. Chest x-ray had revealed near complete white out of the left hemithorax. Ultrasound did not reveal any significant pleural effusion. He did undergo bronchoscopy with BAL with Dr. Oliver today. Large amount of mucous plug was removed from the left mainstem bronchus. Fluid analysis and cytology pending. Follow-up chest x-ray pending. He is continued on bronchodilators. Objective - Vital Signs Vital signs: Vital Signs Temp 98 F 01/29/23 12:43 Pulse 76 01/29/23 13:30 Resp 12 01/29/23 13:30 BP 91/48 01/29/23 13:30 Pulse Ox 100 01/29/23 13:30 FiO2 Intake & Output 01/28/23 01/29/23 01/29/23 18:59 06:59 18:59 Intake Total 150 Output Total 2 Balance -2 150 Intake: IV 150 Output: Stool 2 Other: Voiding Method Toilet Toilet Diaper Diaper # Voids 0 # Bowel Movements 1 0 - Exam GENERAL EXAM: Alert, 62-year-old male patient, on 5 L nasal cannula, comfortable in no apparent distress. HEAD: Normocephalic. EYES: Normal reaction of pupils, equal size. NOSE: Clear with pink turbinates. THROAT: No erythema or exudates. NECK: No masses, no JVD. CHEST: No chest wall deformity. Hemodialysis catheter in place. LUNGS: Equal air entry with breath sounds in the left lung base. CVS: S1 and S2 normal with no audible murmur, regular rhythm. ABDOMEN: No hepatosplenomegaly, normal bowel sounds, no guarding or rigidity. SPINE: No scoliosis or deformity SKIN: No rashes CENTRAL NERVOUS SYSTEM: No focal deficits, tone is normal in all 4 extremities. EXTREMITIES: There is no peripheral edema. No clubbing, no cyanosis. Peripheral pulses are intact. - Labs CBC & Chem 7: 01/27/23 21:02 01/27/23 21:02 Labs: Abnormal Lab Results - Last 24 Hours (Table) 01/28/23 01/28/23 01/28/23 Range/Units 11:40 17:07 20:21 POC Glucose (mg/dL) 129 H 119 H (70-110) mg/dL Iron 59 L (65-175) UG/DL TIBC 128 L (228-460) UG/DL Transferrin 91.6 L (204.0-354.0) mg/dL 01/29/23 01/29/23 Range/Units 05:51 11:22 POC Glucose (mg/dL) 128 H 132 H (70-110) mg/dL Iron (65-175) UG/DL TIBC (228-460) UG/DL Transferrin (204.0-354.0) mg/dL Assessment and Plan Assessment: Acute hypoxemic respiratory failure secondary to near complete opacification of the left lung. Ultrasound revealed no fluid. He did undergo bronchoscopy with BAL with large amounts of mucous plugs removed from the left mainstem bronchus today. Fluid analysis, cultures and cytology pending. History of pleural effusions with previous thoracentesis most recently 3 weeks ago at [facility] and [place] End-stage renal disease receiving hemodialysis for approximately 3 years Anemia of suspected chronic disease History of CVA with left-sided weakness Left hip pain secondary to pressure ulcers, x-ray revealed no fracture or graft diabetes mellitus History of gastric esophageal reflux disease History of DVT History of spinal cord stimulator History of anxiety/depression [facility] resident, basically bedbound pressure ulcers Plan: The patient was seen and evaluated Chest x-ray, labs and medications reviewed Bronchoscopy and BAL performed today Chest x-ray pending Procalcitonin pending Titrate the FiO2 as tolerated Heparin for DVT prophylaxis We will continue to follow I have personally seen and examined the patient, performed the documentation and the assessment and plan as written. Number of minutes spent on the visit: 10.
[2023-01-29 16:42] LABS: Glucose,Whole Blood 119 mg/dL (70-110)
--- NOTE | 2023-01-29 18:16 | XR ---
EXAM: XR chest 1V portable CLINICAL INDICATION:Male, 62 years old with history of Hypoxemia; PH COMPARISON: 01/28/2023 TECHNIQUE: Chest single view. FINDINGS: Lines/tubes/devices: Right chest tunneled dialysis catheter with tip over the right atrium. Probable neurostimulator device terminating over the inferior thoracic spine. Cervical spine fixation hardware . Jewelry about the neck. Left axillary vascular stent. Cardiomediastinum: Cardiomediastinal silhouette is largely obscured. There appears to be less leftward shift of the medi astinum, suggestive of improving volume loss in the left hemithorax. Heart size is indeterminate. Lungs/pleura: There remains near complete opacification of the left chest, with slight relative clearing cranially. Vascular congestion with perihilar and lower lobe opacities on the right likely representing edema, similar to before. No large right pleural effusion or visualized pneumothorax. Bones/soft tissues: Bony thorax appears grossly unchanged as seen. Degenerative changes of the shoulders and spine. Regio nal soft tissues appear unremarkable. IMPRESSION: 1. Improving volume loss in the left hemithorax is suggested, nevertheless there remains near comple te opacification of the left chest. Likely considerations include atelectasis, parenchymal consolidat ion, and/or pleural effusion. 2. Similar appearance of the right lung, with vascular congestion and mid to lower lung opacities li josse representing edema.
[2023-01-29 18:45] VITALS: BMI 34.0
[2023-01-29] MEDS: MELATONIN 5 MG TABLET PO SCH (20:36)
[2023-01-29] MEDS: LEVOTHYROXINE 50 MCG TAB PO SCH (20:36)
[2023-01-29 20:42] LABS: Glucose,Whole Blood 100 mg/dL (70-110)
[2023-01-29] MEDS: SODIUM ZIRCONIUM CYCLOSILICATE 10 GM PACKET PO SCH (21:48)
[2023-01-30] MEDS: HYDROmorphone 0.5 MG/0.5 ML SYRINGE IVP PRN ×8 (00:56→23:56)
[2023-01-30] MEDS: ALBUTEROL NEBULIZED 2.5 MG/3 ML INHALATION PRN (01:00)
[2023-01-30] MEDS: hydrOXYzine HCL 25 MG TAB PO PRN ×3 (05:08→22:04)
[2023-01-30] MEDS: ARTIFICIAL TEARS-HYPROMELLOSE DROPS 15 ML BTL BOTH EYES SCH ×3 (05:09→20:55)
--- NOTE | 2023-01-30 05:23 | P.PN ---
Subjective Progress Note Date: 01/29/23 This is a pleasant 62 years old male with past medical history of end-stage renal disease on hemodialysis for the last 3 years, COPD, CVA/TIA, diabetes mellitus, GERD, basal cell carcinoma, cervical radiculopathy, chronic low back pain, chronic neck pain, CVA with deficit to the left side, peripheral vascular disease, DVT, dysphagia, fatty liver, foot drop, gastritis,,, gout Patient presents from [facility] for shortness of breath, patient says that she's been having this shortness of breath for 2 weeks on and off associated with cough and yellowish phlegm Patient says that he has left-sided pain and cleared his neck chest abdomen and left hip. He says that he takes Dilaudid 4 mg every 4 hours as needed. He says that he tolerates diet well and he has regular bowel movement this morning No new headache dizziness and weakness or numbness. Hemodynamically he is a stable Hemoglobin 7.9, creatinine 1.8. Baseline creatinine is unknown. 01/29/2023 Patient is seen in follow-up today reporting nausea and anti-nausea medications being ordered. Patient being followed by nephrology along with pulmonary and scheduled to undergo dialysis today as well as resuming tomorrow to keep on schedule of Sunday//Sunday. Patient received dialysis out of [place] and has been residing at an [facility]. Case management following and patient will be returning there on stabilized and discharge. Patient scheduled to undergo bronchoscopy with BAL today which is currently pending. Recommend frequent position changes and offloading of the left hip although per nursing staff patient has been refusing. Patient continued on 4 L nasal cannula and recommended wean FiO2 as tolerated. Patient is currently afebrile with no reported chest pain or palpitations. Patient continues to report shortness of breath. Review of systems: Constitutional: reports of fatigue, no fever, or chills Cardiovascular: No reports of chest pain or palpitations Respiratory: reports of continued shortness of breath GI: reports of nausea and vomiting, no diarrhea : No reports of dysuria or retention, maintained on dialysis Neurovascular: reports of weakness or numbness All medications have been reviewed Physical exam: GENERAL: The patient is alert and oriented x3, not in any acute distress. Well developed, well nourished. HEENT: Pupils are round and equally reacting to light. EOMI. No scleral icterus. No conjunctival pallor. Normocephalic, atraumatic. No pharyngeal erythema. No thyromegaly. CARDIOVASCULAR: S1 and S2 present. No murmurs, rubs, or gallops. PULMONARY: Chest is clear to auscultation, no wheezing , no crackles. ABDOMEN: Soft, nontender, nondistended, normoactive bowel sounds. No palpable organomegaly. MUSCULOSKELETAL: No joint swelling or deformity. EXTREMITIES: No cyanosis, clubbing, or pedal edema. NEUROLOGICAL: Gross neurological examination did not reveal any focal deficits. SKIN: No rashes. no petechiae. Assessment: Left pleural effusion, almost complete opacification, scheduled to undergo bronchoscopy with BAL today Acute hypoxic respiratory failure secondary to above Ongoing left side arthritis pain, likely chronic Chronic pain syndrome on oral Dilaudid at home 4 milligrams every 4 hours end-stage renal disease on hemodialysis for the last 3 years COPD, not in exacerbation History of CVA/TIA with left hemiparesis diabetes mellitus GERD History of basal cell carcinoma cervical radiculopathy chronic low back pain chronic neck pain peripheral vascular disease History of DVT dysphagia History of fatty liver History of foot drop History of gastritis History of gout Obesity with a BMI 34.0 GI prophylaxis next line DVT prophylaxis Full code Plan: Continue with supplemental oxygen with pulmonary following and plans for broncho scopy with BAL today. Patient continues to have shortness of breath and is also maintained on breathing treatments Nephrology following this patient is end-stage renal disease maintained on dialysis Sunday//Sunday and scheduled to undergo dialysis today as well as resuming tomorrow Recommend limiting the use of IV narcotics as patient is sedated and lethargic. Patient reported significant 10/10 pain and also having some nausea with vomiting today. left hip x-ray obtained with no acute process noted. Patient continues to have significant pain and recommending monitoring of the skin is patient is dominantly laying on the left side and has been refusing to have position changes. Patient has been having falls and reports was at [facility] for continued PT/T therapy prior to admission Will await bronchoscopy report and follow-up on chest x-ray Repeat labs ordered for a.m. Will discuss further with case management/social work regarding discharge planning once patient is cleared by consultations. Patient will likely return to [facility] on discharge. Due to multiple complex medical issues, prognosis is guarded The impression and plan of care has been dictated by Keila Hurst, Nurse Practitioner as directed. Dr. Yanique MD I have performed a history and examination and MDM of this patient, discussed the same with the dictator, and agree with the dictator's assessment and plan as written ,documented as a scribe. Based on total visit time, I have performed more than 50% of the visit. Objective - Vital Signs Vital signs: Vital Signs Temp 97.9 F 01/29/23 07:50 Pulse 80 01/29/23 09:20 Resp 22 01/29/23 07:50 BP 96/56 01/29/23 07:50 Pulse Ox 100 01/29/23 09:04 FiO2 Intake & Output 01/28/23 01/29/23 01/29/23 18:59 06:59 18:59 Output Total 2 Balance -2 Output: Stool 2 Other: Voiding Method Toilet Toilet Diaper Diaper # Voids 0 # Bowel Movements 1 0 - Labs CBC & Chem 7: 01/27/23 21:02 01/27/23 21:02 Labs: Abnormal Lab Results - Last 24 Hours (Table) 01/28/23 01/28/23 01/28/23 Range/Units 11:18 11:40 17:07 POC Glucose (mg/dL) 220 H 129 H (70-110) mg/dL Iron 59 L (65-175) UG/DL TIBC 128 L (228-460) UG/DL Transferrin 91.6 L (204.0-354.0) mg/dL 01/28/23 01/29/23 Range/Units 20:21 05:51 POC Glucose (mg/dL) 119 H 128 H (70-110) mg/dL Iron (65-175) UG/DL TIBC (228-460) UG/DL Transferrin (204.0-354.0) mg/dL
[2023-01-30 05:47] LABS: Appearance,BF Slightly Cloudy (Clear)
[2023-01-30 06:28] LABS: Glucose,Whole Blood 129 mg/dL (70-110)
[2023-01-30 06:37] LABS: African American GFR (CKD) 35 (>60 ml/min/1.73 sqM); Anion Gap 9 mmol/L; Blood Urea Nitrogen 12 mg/dL (9-20); Calcium 7.7 mg/dL (8.4-10.2); Carbon Dioxide 27 mmol/L (22-30); Chloride 99 mmol/L (98-107); Glucose 126 mg/dL (74-99); Magnesium 2.2 mg/dL (1.6-2.3); Non-African American GFR(CKD) 30 (>60 ml/min/1.73 sqM); Potassium 3.3 mmol/L (3.5-5.1); Sodium 135 mmol/L (137-145)
[2023-01-30 06:45] LABS: Anisocytosis Slight; Basophils % (A) 1 %; Eosinophils # (A) 0.1 k/uL (0-0.7); Eosinophils % (A) 2 %; HCT 21.9 % (39.0-53.0); Hypochromasia Marked; Lymphocytes # (A) 0.7 k/uL (1.0-4.8); Lymphocytes % (A) 12 %; MCHC 31.7 g/dL (31.0-37.0); MCV 100.8 fL (80.0-100.0); Macrocytosis Slight; Mean Platelet Volume 7.7; Monocytes # (A) 0.4 k/uL (0-1.0); Monocytes % (A) 7 %; Neutrophils # (A) 4.4 k/uL (1.3-7.7); Neutrophils % (A) 76 %; Platelet Count 188 k/uL (150-450); Poikilocytosis Moderate; RBC 2.18 m/uL (4.30-5.90); RDW 17.4 % (11.5-15.5); WBC 5.9 k/uL (3.8-10.6)
[2023-01-30] MEDS: INSULIN ASPART (NovoLOG) 100 UNIT/ML VIAL SQ SCH ×4 (06:46→22:04)
[2023-01-30] MEDS: FAMOTIDINE 20 MG/2 ML VIAL IV SCH ×2 (08:09→20:54)
[2023-01-30] MEDS: FOLIC ACID-VIT B COMPLEX-VIT C 1 CAP PO SCH (08:10)
[2023-01-30] MEDS: MIDODRINE 5 MG TAB PO PRN (08:10)
[2023-01-30] MEDS: ENOXAPARIN 100 MG/ML SYRINGE SQ SCH (08:10)
[2023-01-30] MEDS: LACTULOSE 20 GM/30 ML CUP PO SCH ×2 (08:10→20:55)
[2023-01-30] MEDS: QUEtiapine 25 MG TAB PO SCH ×2 (08:10→20:54)
[2023-01-30] MEDS: MONTELUKAST 10 MG TAB PO SCH (08:10)
[2023-01-30] MEDS: allopurinoL 100 MG TAB PO SCH (08:10)
[2023-01-30] MEDS: SENNOSIDES-DOCUSATE SODIUM 1 EACH TAB PO SCH ×2 (08:10→20:55)
[2023-01-30] MEDS: MENTHOL-ZINC OXIDE OINT 113 GM TUBE TOPICAL SCH ×2 (08:11→20:56)
[2023-01-30] MEDS: ALBUTEROL NEBULIZED 2.5 MG/3 ML INHALATION SCH ×5 (08:51→21:44)
[2023-01-30 08:58] LABS: Amylase, Fluid Source Pleural Fluid; Amylase,Body Fluid 1468 U/L; LDH, Body Fluid Source Pleural Fluid
[2023-01-30 09:05] LABS: Glucose, BF Source Pleural Fluid; Glucose, Body Fluid <2 mg/dL; T. Protein, Body Fluid Source Pleural Fluid; Total Protein, Body Fluid <200 mg/dL
[2023-01-30 10:52] LABS: Glucose,Whole Blood 105 mg/dL (70-110)
[2023-01-30] MEDS ORDERED: POTASSIUM CHLORIDE ER 20 MEQ TAB.ER PO STA (11:48)
--- NOTE | 2023-01-30 11:48 | P.PN ---
Subjective Patient is seen for follow-up for end-stage renal disease. Patient is seen on hemodialysis. Tolerating treatment well. Status post UF of 2.4 L yesterday and goal UF about 2 L again today. Status post bronchoscopy,BAL with removal of large amounts of mucous plug from the left main bronchus. Objective - Vital Signs Vital signs: Vital Signs Temp 97.6 F 01/30/23 06:59 Pulse 82 01/30/23 06:59 Resp 17 01/30/23 06:59 BP 105/56 01/30/23 06:59 Pulse Ox 100 01/30/23 06:59 FiO2 Intake & Output 01/29/23 01/30/23 01/30/23 18:59 06:59 18:59 Intake Total 150 400 Output Total 2400 Balance 150 -2000 Weight 120.202 kg Intake: IV 150 Hemodialysis 400 Output: Hemodialysis 2400 Other: Voiding Method Toilet Diaper # Voids 0 1 # Bowel Movements 1 - Exam Patient is awake, comfortable, alert oriented 3. No acute distress Examination of the heart S1 and S2 Examination of the lungs decreased breath sounds at the bases Abdomen is soft obese mild tenderness in the left lower quadrant and mid quadrant Examination of lower extremity shows trace edema bilaterally. Patient has left hemiparesis. - Labs CBC & Chem 7: 01/30/23 05:39 01/30/23 05:39 Labs: Abnormal Lab Results - Last 24 Hours (Table) 01/28/23 01/28/23 01/29/23 Range/Units 09:18 11:40 16:40 RBC (4.30-5.90) m/uL Hgb (13.0-17.5) gm/dL Hct (39.0-53.0) % MCV (80.0-100.0) fL RDW (11.5-15.5) % Lymphocytes # (1.0-4.8) k/uL Sodium (137-145) mmol/L Potassium (3.5-5.1) mmol/L Creatinine (0.66-1.25) mg/dL Glucose (74-99) mg/dL POC Glucose (mg/dL) 119 H (70-110) mg/dL Calcium (8.4-10.2) mg/dL Procalcitonin 0.45 H (0.02-0.09) ng/mL Fluid Appearance Slightly Cloudy A (Clear) 01/30/23 01/30/23 01/30/23 Range/Units 05:39 05:39 06:27 RBC 2.18 L (4.30-5.90) m/uL Hgb 7.0 L (13.0-17.5) gm/dL Hct 21.9 L (39.0-53.0) % MCV 100.8 H (80.0-100.0) fL RDW 17.4 H (11.5-15.5) % Lymphocytes # 0.7 L (1.0-4.8) k/uL Sodium 135 L (137-145) mmol/L Potassium 3.3 L (3.5-5.1) mmol/L Creatinine 2.21 H (0.66-1.25) mg/dL Glucose 126 H (74-99) mg/dL POC Glucose (mg/dL) 129 H (70-110) mg/dL Calcium 7.7 L (8.4-10.2) mg/dL Procalcitonin (0.02-0.09) ng/mL Fluid Appearance (Clear) Microbiology - Last 24 Hours (Table) 01/29/23 09:18 Gram Stain - Preliminary Bronchoalviolar Lavage - Left Assessment and Plan Assessment: 1. End-stage renal disease on hemodialysis on a Sunday schedule via left IJ permacath. Patient dialyzes out of [place] 2. Volume overload 3. Acute hypoxic respiratory failure secondary to volume overload and left lung opacification secondary to mucous plug. Status post bronchoscopy today with BAL with the removal of large amounts of mucous plug. 4. Anemia of chronic disease , iron replete. 5. History of CVA with left hemiparesis Plan: Next hemodialysis on 02/01/2023's replace potassium
--- NOTE | 2023-01-30 13:27 | P.PN ---
Subjective Progress Note Date: 01/30/23 This is a 62-year-old male patient with a known history of CVA with left-sided weakness, diabetes mellitus, chronic obstructive pulmonary disease, end-stage renal disease receiving hemodialysis, anxiety/depression, previous pleural effusions with thoracentesis most recently 3 weeks ago at [facility] in [place]. Yesterday he was seen at a outside hospital and chest x-ray revealed near complete opacification of the left lung. He was to be transferred to back to [facility] however no beds were available and he was transferred here. Chest x-ray reveals a large left and small right pleural effusion. Hemodialysis catheter in the right chest. White count 5.6. Hemoglobin 7.9. Platelets 241. Sodium 135. Potassium 3.6. Bicarb 30. BUN 9. Creatinine 1.83. Glucose 118. He is seen today in consultation on the regular medical floor. He is currently resting fairly comfortably in bed. Awake and alert in no acute distress. He is maintaining O2 saturations up to 100% on 5 L/m per nasal cannula. His been afebrile. Hemodynamically stable. He has been basically bedbound and is difficult to sit up. He has pressure ulcers as well. The patient is seen today 01/29/2023 in follow-up on the regular medical floor. He is resting comfortably in bed. Awake and alert in no acute distress. Maintaining O2 saturations up to 100% on 5 L/m per nasal cannula. He's been afebrile. Hemodynamically stable. Chest x-ray had revealed near complete white out of the left hemithorax. Ultrasound did not reveal any significant pleural effusion. He did undergo bronchoscopy with BAL with Dr. Oliver today. Large amount of mucous plug was removed from the left mainstem bronchus. Fluid analysis and cytology pending. Follow-up chest x-ray pending. He is continued on bronchodilators. She is seen today 01/30/2023 in follow-up on the regular medical floor. He is currently resting comfortably in bed. Awake and alert in no acute distress. Currently receiving hemodialysis. His chest x-ray showed some improvement in density of the left lung post bronchoscopy. Not a significant amount of i mprovement however. Bronchial wash cultures and cytology pending. Viral screen is positive for RSV. White count 5.9. Hemoglobin 7.0. Platelets 188. Sodium 135. Potassium 3.3. Bicarb 27. BUN 12. Creatinine 2.21. Glucose 126. He remains on bronchodilators. Lovenox for anticoagulation. Objective - Vital Signs Vital signs: Vital Signs Temp 96.5 F L 01/30/23 13:04 Pulse 71 01/30/23 13:04 Resp 18 01/30/23 13:04 BP 99/52 01/30/23 13:04 Pulse Ox 99 01/30/23 11:49 FiO2 Intake & Output 01/29/23 01/30/23 01/30/23 18:59 06:59 18:59 Intake Total 150 400 400 Output Total 2400 2400 Balance 150 -2000 -2000 Weight 120.202 kg Intake: IV 150 Hemodialysis 400 400 Output: Hemodialysis 2400 2400 Other: Voiding Method Toilet Diaper # Voids 0 1 # Bowel Movements 1 - Exam GENERAL EXAM: Alert, 62-year-old male patient, on 5 L nasal cannula, comfortable in no apparent distress. HEAD: Normocephalic. EYES: Normal reaction of pupils, equal size. NOSE: Clear with pink turbinates. THROAT: No erythema or exudates. NECK: No masses, no JVD. CHEST: No chest wall deformity. Hemodialysis catheter in place. LUNGS: Equal air entry with scattered rhonchi in the left lung base. CVS: S1 and S2 normal with no audible murmur, regular rhythm. ABDOMEN: No hepatosplenomegaly, normal bowel sounds, no guarding or rigidity. SPINE: No scoliosis or deformity SKIN: No rashes CENTRAL NERVOUS SYSTEM: No focal deficits, tone is normal in all 4 extremities. EXTREMITIES: There is no peripheral edema. No clubbing, no cyanosis. Peripheral pulses are intact. - Labs CBC & Chem 7: 01/30/23 05:39 01/30/23 05:39 Labs: Abnormal Lab Results - Last 24 Hours (Table) 01/28/23 01/28/23 01/29/23 Range/Units 09:18 11:40 09:18 RBC (4.30-5.90) m/uL Hgb (13.0-17.5) gm/dL Hct (39.0-53.0) % MCV (80.0-100.0) fL RDW (11.5-15.5) % Lymphocytes # (1.0-4.8) k/uL Sodium (137-145) mmol/L Potassium (3.5-5.1) mmol/L Creatinine (0.66-1.25) mg/dL Glucose (74-99) mg/dL POC Glucose (mg/dL) (70-110) mg/dL Calcium (8.4-10.2) mg/dL Procalcitonin 0.45 H (0.02-0.09) ng/mL Fluid Appearance Slightly Cloudy A (Clear) RSV (PCR) DETECTED A (Not detected) 01/29/23 01/30/23 01/30/23 Range/Units 16:40 05:39 05:39 RBC 2.18 L (4.30-5.90) m/uL Hgb 7.0 L (13.0-17.5) gm/dL Hct 21.9 L (39.0-53.0) % MCV 100.8 H (80.0-100.0) fL RDW 17.4 H (11.5-15.5) % Lymphocytes # 0.7 L (1.0-4.8) k/uL Sodium 135 L (137-145) mmol/L Potassium 3.3 L (3.5-5.1) mmol/L Creatinine 2.21 H (0.66-1.25) mg/dL Glucose 126 H (74-99) mg/dL POC Glucose (mg/dL) 119 H (70-110) mg/dL Calcium 7.7 L (8.4-10.2) mg/dL Procalcitonin (0.02-0.09) ng/mL Fluid Appearance (Clear) RSV (PCR) (Not detected) 01/30/23 Range/Units 06:27 RBC (4.30-5.90) m/uL Hgb (13.0-17.5) gm/dL Hct (39.0-53.0) % MCV (80.0-100.0) fL RDW (11.5-15.5) % Lymphocytes # (1.0-4.8) k/uL Sodium (137-145) mmol/L Potassium (3.5-5.1) mmol/L Creatinine (0.66-1.25) mg/dL Glucose (74-99) mg/dL POC Glucose (mg/dL) 129 H (70-110) mg/dL Calcium (8.4-10.2) mg/dL Procalcitonin (0.02-0.09) ng/mL Fluid Appearance (Clear) RSV (PCR) (Not detected) Microbiology - Last 24 Hours (Table) 01/29/23 09:18 Gram Stain - Preliminary Bronchoalviolar Lavage - Left Assessment and Plan Assessment: Acute hypoxemic respiratory failure secondary to near complete opacification of the left lung. Ultrasound revealed no fluid. He did undergo bronchoscopy with BAL with large amounts of mucous plugs removed from the left mainstem bronchus today. Fluid analysis, cultures and cytology pending. Viral culture positive for RSV. Pro-calcitonin 0.45. Initiated on Levaquin 500 mg every other day History of pleural effusions with previous thoracentesis most recently 3 weeks ago at [facility] and [place] End-stage renal disease receiving hemodialysis for approximately 3 years Anemia of suspected chronic disease History of CVA with left-sided weakness Left hip pain secondary to pressure ulcers, x-ray revealed no fracture or graft diabetes mellitus History of gastric esophageal reflux disease History of DVT History of spinal cord stimulator History of anxiety/depression residential resident, basically bedbound pressure ulcers Plan: The patient was seen and evaluated Labs and medications reviewed Chest x-ray shows improvement but not a significant change We'll repeat a chest x-ray in the a.m. If no improvement we will plan for repeat bronchoscopy with BAL tomorrow Procalcitonin elevated at 0.45 Initiate Levaquin 500 mg every other day Titrate the FiO2 as tolerated Lovenox for DVT prophylaxis We will continue to follow I have personally seen and examined the patient, performed the documentation and the assessment and plan as written. Number of minutes spent on the visit: 10.
[2023-01-30] MEDS: ONDANSETRON 4 MG/2 ML VIAL IVP PRN ×2 (14:54→22:05)
[2023-01-30] MEDS: LEVOFLOXACIN 500 MG TAB PO SCH (14:55)
[2023-01-30 16:31] LABS: Glucose,Whole Blood 155 mg/dL (70-110)
[2023-01-30] MEDS: LEVOTHYROXINE 50 MCG TAB PO SCH (20:54)
[2023-01-30] MEDS: MELATONIN 5 MG TABLET PO SCH (20:54)
[2023-01-30 21:12] LABS: Glucose,Whole Blood 199 mg/dL (70-110)
--- NOTE | 2023-01-30 21:20 | P.PN ---
Subjective Progress Note Date: 01/30/23 This is a pleasant 62 years old male with past medical history of end-stage renal disease on hemodialysis for the last 3 years, COPD, CVA/TIA, diabetes mellitus, GERD, basal cell carcinoma, cervical radiculopathy, chronic low back pain, chronic neck pain, CVA with deficit to the left side, peripheral vascular disease, DVT, dysphagia, fatty liver, foot drop, gastritis,,, gout [facility], patient says that she's been having this shortness of breath for 2 weeks on and off associated with cough and yellowish phlegm Patient says that he has left-sided pain and cleared his neck chest abdomen and left hip. He says that he takes Dilaudid 4 mg every 4 hours as needed. He says that he tolerates diet well and he has regular bowel movement this morning No new headache dizziness and weakness or numbness. Hemodynamically he is a stable Hemoglobin 7.9, creatinine 1.8. Baseline creatinine is unknown. 01/29/2023 Patient is seen in follow-up today reporting nausea and anti-nausea medications being ordered. Patient being followed by nephrology along with pulmonary and scheduled to undergo dialysis today as well as resuming tomorrow to keep on schedule of Sunday//Sunday. Patient received dialysis out of [facility] and has been residing at an [facility]. Case management following and patient will be returning there on stabilized and discharge. Patient scheduled to undergo bronchoscopy with BAL today which is currently pending. Recommend frequent position changes and offloading of the left hip although per nursing staff patient has been refusing. Patient continued on 4 L nasal cannula and recommended wean FiO2 as tolerated. Patient is currently afebrile with no reported chest pain or palpitations. Patient continues to report shortness of breath. 01/30/2023 Patient is seen in follow-up this morning lethargic although arousable currently undergoing hemodialysis with nephrology following closely. Potassium is low today at 3.0 will be replaced per protocol. Hemoglobin is 7.0 and will follow- up in monitor and transfuse if less than 7. Patient with pulmonary following and is status post bronchoscopy with BAL and being started on antibiotics as patient had complete opacification patient with obstruction of the left bronchus on bronchoscopy with significant mucous plugs suctioned. Patient to have follow-up chest x-ray in the a.m. and will decide further if repeat bronchoscopy on as needed. Patient is currently afebrile and extremely lethargic with significant weakness. Patient will need to work with physical therapy for updated notes is patient plans on returning to [facility]. Review of systems: Constitutional: reports of fatigue, no fever, or chills Cardiovascular: No reports of chest pain or palpitations Respiratory: reports of continued shortness of breath GI: No reports of nausea and vomiting, no diarrhea : No reports of dysuria or retention, maintained on dialysis Neurovascular: reports of weakness or numbness All medications have been reviewed Physical exam: GENERAL: The patient is alert and oriented x3, not in any acute distress. Lethargic but arousable, currently receiving hemodialysis, appears much older than stated age, ill appearing Well developed, well nourished. HEENT: Pupils are round and equally reacting to light. EOMI. No scleral icterus. No conjunctival pallor. Normocephalic, atraumatic. No pharyngeal erythema. No thyromegaly. CARDIOVASCULAR: S1 and S2 muffled PULMONARY: Diminished breath sounds bilaterally with some crackles noted at the bases, weak inspiration ABDOMEN: Soft, nontender, nondistended, normoactive bowel sounds. No palpable organomegaly. MUSCULOSKELETAL: No joint swelling or deformity. EXTREMITIES: No cyanosis, clubbing, or pedal edema. NEUROLOGICAL: Gross neurological examination did not reveal any focal deficits. Generalized edema of upper and lower extremities SKIN: No rashes. no petechiae. Pale Assessment: Left pleural effusion, almost complete opacification, status post bronchoscopy with BAL today with mucus obstruction bronchus on the left Acute hypoxic respiratory failure secondary to above RSV positive Ongoing left side arthritis pain, likely chronic Chronic pain syndrome on oral Dilaudid at home 4 milligrams every 4 hours end-stage renal disease on hemodialysis for the last 3 years COPD, not in exacerbation Anemia of chronic disease, hemoglobin is 7 today History of CVA/TIA with left hemiparesis diabetes mellitus GERD History of basal cell carcinoma cervical radiculopathy chronic low back pain chronic neck pain peripheral vascular disease History of DVT dysphagia History of fatty liver History of foot drop History of gastritis History of gout Obesity with a BMI 34.0 GI prophylaxis next line DVT prophylaxis Full code Plan: Continue with supplemental oxygen with pulmonary following and underwent bronchoscopy with BAL with pulmonary showing multiple mucous plugs and almost complete obstruction of the left bronchus secondary to mucous plugs. Patient continues to have shortness of breath and is also maintained on breathing treatments. Follow-up chest x-ray ordered for a.m. for pulmonary with discussion of possible repeat bronchoscopy on Nephrology following this patient is end-stage renal disease maintained on dialysis Sunday//Sunday and scheduled to undergo dialysis today Recommend limiting the use of IV narcotics as patient is sedated and lethargic. Patient reported significant 10/10 pain and also having some nausea with vomiting today. left hip x-ray obtained with no acute process noted. Patient continues to have significant pain and recommending monitoring of the skin is patient is dominantly laying on the left side and has been refusing to have position changes. Patient has been having falls and reports was at [facility] for continued [facility]/T therapy prior to admission Repeat labs ordered for a.m. hemoglobin is 7 today and will follow-up with repea t labs and will likely require transfusion Will discuss further with case management/social work regarding discharge planning once patient is cleared by consultations. Patient will be returning to [facility] on discharge in [place]. Need updated PT/OT therapy notes and encouraged patient to work with physical therapy for evaluation Due to multiple complex medical issues, prognosis is guarded The impression and plan of care has been dictated by Keila Hurst, Nurse Practitioner as directed. Dr. Yanique MD I have performed a history and examination and MDM of this patient, discussed the same with the dictator, and agree with the dictator's assessment and plan as written ,documented as a scribe. Based on total visit time, I have performed more than 50% of the visit. Objective - Vital Signs Vital signs: Vital Signs Temp 97.6 F 01/30/23 13:26 Pulse 80 01/30/23 18:15 Resp 17 01/30/23 13:26 BP 107/62 01/30/23 13:26 Pulse Ox 100 01/30/23 13:26 FiO2 Intake & Output 01/30/23 01/30/23 01/31/23 06:59 18:59 06:59 Intake Total 400 400 Output Total 2400 2400 Balance -1999 -1999 Intake: Hemodialysis 400 400 Output: Hemodialysis 2400 2400 Other: Voiding Method Toilet Diaper # Voids 1 # Bowel Movements 1 1 - Labs CBC & Chem 7: 01/30/23 05:39 01/30/23 05:39 Labs: Abnormal Lab Results - Last 24 Hours (Table) 01/28/23 01/28/23 01/29/23 Range/Units 09:18 11:40 09:18 RBC (4.30-5.90) m/uL Hgb (13.0-17.5) gm/dL Hct (39.0-53.0) % MCV (80.0-100.0) fL RDW (11.5-15.5) % Lymphocytes # (1.0-4.8) k/uL Sodium (137-145) mmol/L Potassium (3.5-5.1) mmol/L Creatinine (0.66-1.25) mg/dL Glucose (74-99) mg/dL POC Glucose (mg/dL) (70-110) mg/dL Calcium (8.4-10.2) mg/dL Procalcitonin 0.45 H (0.02-0.09) ng/mL Fluid Appearance Slightly Cloudy A (Clear) RSV (PCR) DETECTED A (Not detected) 01/30/23 01/30/23 01/30/23 Range/Units 05:39 05:39 06:27 RBC 2.18 L (4.30-5.90) m/uL Hgb 7.0 L (13.0-17.5) gm/dL Hct 21.9 L (39.0-53.0) % MCV 100.8 H (80.0-100.0) fL RDW 17.4 H (11.5-15.5) % Lymphocytes # 0.7 L (1.0-4.8) k/uL Sodium 135 L (137-145) mmol/L Potassium 3.3 L (3.5-5.1) mmol/L Creatinine 2.21 H (0.66-1.25) mg/dL Glucose 126 H (74-99) mg/dL POC Glucose (mg/dL) 129 H (70-110) mg/dL Calcium 7.7 L (8.4-10.2) mg/dL Procalcitonin (0.02-0.09) ng/mL Fluid Appearance (Clear) RSV (PCR) (Not detected) 01/30/23 Range/Units 16:29 RBC (4.30-5.90) m/uL Hgb (13.0-17.5) gm/dL Hct (39.0-53.0) % MCV (80.0-100.0) fL RDW (11.5-15.5) % Lymphocytes # (1.0-4.8) k/uL Sodium (137-145) mmol/L Potassium (3.5-5.1) mmol/L Creatinine (0.66-1.25) mg/dL Glucose (74-99) mg/dL POC Glucose (mg/dL) 155 H (70-110) mg/dL Calcium (8.4-10.2) mg/dL Procalcitonin (0.02-0.09) ng/mL Fluid Appearance (Clear) RSV (PCR) (Not detected) Microbiology - Last 24 Hours (Table) 01/29/23 09:18 Gram Stain - Preliminary Bronchoalviolar Lavage - Left
[2023-01-31] MEDS: HYDROmorphone 0.5 MG/0.5 ML SYRINGE IVP PRN ×7 (02:25→22:09)
[2023-01-31] MEDS: hydrOXYzine HCL 25 MG TAB PO PRN (05:51)
[2023-01-31] MEDS: ONDANSETRON 4 MG/2 ML VIAL IVP PRN ×3 (05:51→22:09)
[2023-01-31] MEDS: ARTIFICIAL TEARS-HYPROMELLOSE DROPS 15 ML BTL BOTH EYES SCH ×3 (05:56→22:08)
[2023-01-31 06:22] LABS: Glucose,Whole Blood 142 mg/dL (70-110)
[2023-01-31] MEDS: INSULIN ASPART (NovoLOG) 100 UNIT/ML VIAL SQ SCH ×4 (06:26→22:08)
[2023-01-31 08:50] LABS: Basophils # (A) 0.04 X 10*3/uL (0.00-0.10); Basophils % (A) 0.8 %; Eosinophils # (A) 0.16 X 10*3/uL (0.04-0.35); Eosinophils % (A) 3.1 %; HCT 20.6 % (39.6-50.0); HGB 6.5 g/dL (13.0-17.0); Lymphocytes # (A) 0.65 X 10*3/uL (0.90-5.00); Lymphocytes % (A) 12.7 %; MCHC 31.6 g/dL (32.0-37.0); MCV 98.1 FL (80.0-97.0); Mean Platelet Volume 9.9 FL (9.5-12.2); Monocytes # (A) 0.49 X 10*3/uL (0.20-1.00); Monocytes % (A) 9.6 %; NRBC Per 100 WBC 0 X 10*3/uL (0.00-0.01); Neutrophils # (A) 3.73 X 10*3/uL (1.80-7.70); Neutrophils % (A) 73.2 %; Platelet Count 183 X 10*3/uL (140-440); RDW 17.3 % (11.5-14.5)
[2023-01-31] MEDS: SENNOSIDES-DOCUSATE SODIUM 1 EACH TAB PO SCH ×2 (08:56→22:07)
[2023-01-31] MEDS: MONTELUKAST 10 MG TAB PO SCH (08:56)
[2023-01-31] MEDS: allopurinoL 100 MG TAB PO SCH (08:57)
[2023-01-31] MEDS: FAMOTIDINE 20 MG/2 ML VIAL IV SCH ×2 (08:57→22:07)
[2023-01-31] MEDS: QUEtiapine 25 MG TAB PO SCH ×2 (08:57→22:07)
[2023-01-31] MEDS: FOLIC ACID-VIT B COMPLEX-VIT C 1 CAP PO SCH (08:57)
[2023-01-31] MEDS: ENOXAPARIN 100 MG/ML SYRINGE SQ SCH (08:57)
[2023-01-31] MEDS: MENTHOL-ZINC OXIDE OINT 113 GM TUBE TOPICAL SCH ×2 (08:58→22:08)
[2023-01-31 09:00] LABS: BUN/Creat Ratio 4.82 Ratio (12.00-20.00); Blood Urea Nitrogen 10.6 mg/dL (9.0-27.0); Calcium 7.9 mg/dL (8.7-10.3); Carbon Dioxide 28.7 mmol/L (21.6-31.8); Chloride 100 mmol/L (96-109); Glucose 157 mg/dL (70-110); Potassium 3.6 mmol/L (3.5-5.5); Sodium 136 mmol/L (135-145)
[2023-01-31] MEDS: LACTULOSE 20 GM/30 ML CUP PO SCH ×2 (09:05→22:07)
[2023-01-31] MEDS: ALBUTEROL NEBULIZED 2.5 MG/3 ML INHALATION SCH ×4 (09:32→20:10)
[2023-01-31 11:01] LABS: Glucose,Whole Blood 203 mg/dL (70-110)
--- NOTE | 2023-01-31 12:00 | XR ---
EXAMINATION TYPE: XR chest 1V portable DATE OF EXAM: 01/31/2023 Comparison: 01/29/2023 Clinical History: 62-year-old male Pneumonia Findings: Right sided double lumen hemodialysis catheter. Tips at the expected right atrium. ACDF hardware. Whi te out of the left hemithorax persists. Unable to assess heart size. Extensive consolidation througho ut the right lung, similar to slightly worsened. Spinal stimulator array lower thoracic spinal canal. ACDF hardware. Impression: 1. Ongoing white out and volume loss left hemithorax. Unable to assess heart size. 2. Extensive consolidation throughout the right lung similar to slightly worsened.
--- NOTE | 2023-01-31 12:41 | P.PN ---
Subjective Progress Note Date: 01/31/23 This is a 62-year-old male patient with a known history of CVA with left-sided weakness, diabetes mellitus, chronic obstructive pulmonary disease, end-stage renal disease receiving hemodialysis, anxiety/depression, previous pleural effusions with thoracentesis most recently 3 weeks ago at [facility] in [place]. Yesterday he was seen at a outside hospital and chest x-ray revealed near complete opacification of the left lung. He was to be transferred to back to [facility] however no beds were available and he was transferred here. Chest x-ray reveals a large left and small right pleural effusion. Hemodialysis catheter in the right chest. White count 5.6. Hemoglobin 7.9. Platelets 241. Sodium 135. Potassium 3.6. Bicarb 30. BUN 9. Creatinine 1.83. Glucose 118. He is seen today in consultation on the regular medical floor. He is currently resting fairly comfortably in bed. Awake and alert in no acute distress. He is maintaining O2 saturations up to 100% on 5 L/m per nasal cannula. His been afebrile. Hemodynamically stable. He has been basically bedbound and is difficult to sit up. He has pressure ulcers as well. The patient is seen today 01/29/2023 in follow-up on the regular medical floor. He is resting comfortably in bed. Awake and alert in no acute distress. Maintaining O2 saturations up to 100% on 5 L/m per nasal cannula. He's been afebrile. Hemodynamically stable. Chest x-ray had revealed near complete white out of the left hemithorax. Ultrasound did not reveal any significant pleural effusion. He did undergo bronchoscopy with BAL with Dr. Oliver today. Large amount of mucous plug was removed from the left mainstem bronchus. Fluid analysis and cytology pending. Follow-up chest x-ray pending. He is continued on bronchodilators. The patient is seen today 01/30/2023 in follow-up on the regular medical floor. He is currently resting comfortably in bed. Awake and alert in no acute distress. Currently receiving hemodialysis. His chest x-ray showed some improvement in density of the left lung post bronchoscopy. Not a significant amount of improvement however. Bronchial wash cultures and cytology pending. Viral screen is positive for RSV. White count 5.9. Hemoglobin 7.0. Platelets 188. Sodium 135. Potassium 3.3. Bicarb 27. BUN 12. Creatinine 2.21. Glucose 126. He remains on bronchodilators. Lovenox for anticoagulation. The patient is seen today 01/31/2023 in follow-up on the regular medical floor. He is currently resting comfortably in bed. Maintaining O2 saturations up to 100% on 5 L/m per nasal cannula. He denies any worsening shortness of breath or congestion. His chest x-ray continues to show ongoing weight O and volume loss of the left hemithorax. Extensive consolidation throughout the right lung similar to slightly worsened. The plan will be for repeat bronchoscopy tomorrow. I count 5.1. Hemoglobin 6.5. Platelets 183. Sodium 136. Potassium 3.6. Bicarb 29. BUN 11. Creatinine 2.2. Glucose 157. He is continued on Levaquin. Continued on bronchodilators. Lovenox for anticoagulation. Objective - Vital Signs Vital signs: Vital Signs Temp 98.3 F 01/31/23 06:58 Pulse 80 01/31/23 09:48 Resp 18 01/31/23 08:00 BP 127/66 01/31/23 06:58 Pulse Ox 100 01/31/23 09:35 FiO2 Intake & Output 01/30/23 01/31/23 01/31/23 18:59 06:59 18:59 Intake Total 400 Output Total 2400 Balance -1999 Intake: Hemodialysis 400 Output: Hemodialysis 2400 Other: Voiding Method Toilet Diaper # Voids 1 # Bowel Movements 1 - Exam GENERAL EXAM: Alert, 62-year-old male patient, resting in bed, on 5 L nasal cannula, in no apparent distress. HEAD: Normocephalic. EYES: Normal reaction of pupils, equal size. NOSE: Clear with pink turbinates. THROAT: No erythema or exudates. NECK: No masses, no JVD. CHEST: No chest wall deformity. Hemodialysis catheter in place. LUNGS: Equal air entry with scattered rhonchi bilaterally. CVS: S1 and S2 normal with no audible murmur, regular rhythm. ABDOMEN: No hepatosplenomegaly, normal bowel sounds, no guarding or rigidity. SPINE: No scoliosis or deformity SKIN: No rashes CENTRAL NERVOUS SYSTEM: No focal deficits, tone is normal in all 4 extremities. EXTREMITIES: There is no peripheral edema. No clubbing, no cyanosis. Peripheral pulses are intact. - Labs CBC & Chem 7: 01/31/23 04:20 01/31/23 04:20 Labs: Abnormal Lab Results - Last 24 Hours (Table) 01/30/23 01/30/23 01/31/23 Range/Units 16:29 21:10 04:20 RBC (4.40-5.60) X 10*6/uL Hgb (13.0-17.0) g/dL Hct (39.6-50.0) % MCV (80.0-97.0) FL MCHC (32.0-37.0) g/dL RDW (11.5-14.5) % Lymphocytes # (0.90-5.00) X 10*3/uL Creatinine 2.2 H (0.6-1.5) mg/dL Est GFR (CKD-EPI) 33 L (>=60) BUN/Creatinine Ratio 4.82 L (12.00-20.00) Ratio Glucose 157 H (70-110) mg/dL POC Glucose (mg/dL) 155 H 199 H (70-110) mg/dL Calcium 7.9 L (8.7-10.3) mg/dL Crossmatch 01/31/23 01/31/23 01/31/23 Range/Units 04:20 06:21 09:53 RBC 2.10 L (4.40-5.60) X 10*6/uL Hgb 6.5 A* (13.0-17.0) g/dL Hct 20.6 L (39.6-50.0) % MCV 98.1 H (80.0-97.0) FL MCHC 31.6 L (32.0-37.0) g/dL RDW 17.3 H (11.5-14.5) % Lymphocytes # 0.65 L (0.90-5.00) X 10*3/uL Creatinine (0.6-1.5) mg/dL Est GFR (CKD-EPI) (>=60) BUN/Creatinine Ratio (12.00-20.00) Ratio Glucose (70-110) mg/dL POC Glucose (mg/dL) 142 H (70-110) mg/dL Calcium (8.7-10.3) mg/dL Crossmatch See Detail 01/31/23 Range/Units 10:59 RBC (4.40-5.60) X 10*6/uL Hgb (13.0-17.0) g/dL Hct (39.6-50.0) % MCV (80.0-97.0) FL MCHC (32.0-37.0) g/dL RDW (11.5-14.5) % Lymphocytes # (0.90-5.00) X 10*3/uL Creatinine (0.6-1.5) mg/dL Est GFR (CKD-EPI) (>=60) BUN/Creatinine Ratio (12.00-20.00) Ratio Glucose (70-110) mg/dL POC Glucose (mg/dL) 203 H (70-110) mg/dL Calcium (8.7-10.3) mg/dL Crossmatch Microbiology - Last 24 Hours (Table) 01/29/23 09:18 Acid Fast Bacilli Smear - Preliminary Bronchoalviolar Lavage - Left 01/29/23 09:18 Gram Stain - Preliminary Bronchoalviolar Lavage - Left Assessment and Plan Assessment: Acute hypoxemic respiratory failure secondary to near complete opacification of the left lung. Ultrasound revealed no fluid. He did undergo bronchoscopy with BAL with large amounts of mucous plugs removed from the left mainstem bronchus today. Fluid analysis, cultures pending. Cytology negative for malignancy. Viral culture positive for RSV. Pro-calcitonin 0.45. Initiated on Levaquin 500 mg every other day. Follow-up chest x-ray continues to show near complete opacification of the left lung with infiltrates in the right. We'll plan for repeat bronchoscopy and BAL tomorrow Respiratory syncytial virus History of pleural effusions with previous thoracentesis most recently 3 weeks ago at [facility] and [place] End-stage renal disease receiving hemodialysis for approximately 3 years Acute anemia of suspected chronic disease and hemoglobin today 6.5, receiving 1 unit of packed red blood cells History of CVA with left-sided weakness Left hip pain secondary to pressure ulcers, x-ray revealed no fracture or graft diabetes mellitus History of gastric esophageal reflux disease History of DVT History of spinal cord stimulator History of anxiety/depression [facility] resident, basically bedbound pressure ulcers Plan: The patient was seen and evaluated Chest x-ray, labs and medications reviewed X-ray shows near complete white out again of the left lung increased infiltrates on the right We will plan for repeat bronchoscopy with BAL tomorrow Procalcitonin elevated at 0.45 Continued on Levaquin 500 mg every other day Transfuse 1 unit of packed red blood cells Titrate the FiO2 as tolerated Lovenox for DVT prophylaxis We will continue to follow I have personally seen and examined the patient, performed the documentation and the assessment and plan as written. Number of minutes spent on the visit: 10.
--- NOTE | 2023-01-31 12:42 | P.PN ---
Subjective Patient is seen for follow-up for end-stage renal disease. Status post hemodialysis yesterday with UF of 2.4 L. Status post bronchoscopy,BAL with removal of large amounts of mucous plug from the left main bronchus. Objective - Vital Signs Vital signs: Vital Signs Temp 98.3 F 01/31/23 06:58 Pulse 80 01/31/23 09:48 Resp 18 01/31/23 08:00 BP 127/66 01/31/23 06:58 Pulse Ox 100 01/31/23 09:35 FiO2 Intake & Output 01/30/23 01/31/23 01/31/23 18:59 06:59 18:59 Intake Total 400 Output Total 2400 Balance -1999 Intake: Hemodialysis 400 Output: Hemodialysis 2400 Other: Voiding Method Toilet Diaper # Voids 1 # Bowel Movements 1 - Exam Patient is awake, comfortable, alert oriented 3. No acute distress Examination of the heart S1 and S2 Examination of the lungs decreased breath sounds at the bases Abdomen is soft obese mild tenderness in the left lower quadrant and mid quadrant Examination of lower extremity shows trace edema bilaterally. Patient has left hemiparesis. - Labs CBC & Chem 7: 01/31/23 04:20 01/31/23 04:20 Labs: Abnormal Lab Results - Last 24 Hours (Table) 01/30/23 01/30/23 01/31/23 Range/Units 16:29 21:10 04:20 RBC (4.40-5.60) X 10*6/uL Hgb (13.0-17.0) g/dL Hct (39.6-50.0) % MCV (80.0-97.0) FL MCHC (32.0-37.0) g/dL RDW (11.5-14.5) % Lymphocytes # (0.90-5.00) X 10*3/uL Creatinine 2.2 H (0.6-1.5) mg/dL Est GFR (CKD-EPI) 33 L (>=60) BUN/Creatinine Ratio 4.82 L (12.00-20.00) Ratio Glucose 157 H (70-110) mg/dL POC Glucose (mg/dL) 155 H 199 H (70-110) mg/dL Calcium 7.9 L (8.7-10.3) mg/dL Crossmatch 01/31/23 01/31/2301/31/23 Range/Units 04:20 06:21 09:53 RBC 2.10 L (4.40-5.60) X 10*6/uL Hgb 6.5 A* (13.0-17.0) g/dL Hct 20.6 L (39.6-50.0) % MCV 98.1 H (80.0-97.0) FL MCHC 31.6 L (32.0-37.0) g/dL RDW 17.3 H (11.5-14.5) % Lymphocytes # 0.65 L (0.90-5.00) X 10*3/uL Creatinine (0.6-1.5) mg/dL Est GFR (CKD-EPI) (>=60) BUN/Creatinine Ratio (12.00-20.00) Ratio Glucose (70-110) mg/dL POC Glucose (mg/dL) 142 H (70-110) mg/dL Calcium (8.7-10.3) mg/dL Crossmatch See Detail 01/31/23 Range/Units 10:59 RBC (4.40-5.60) X 10*6/uL Hgb (13.0-17.0) g/dL Hct (39.6-50.0) % MCV (80.0-97.0) FL MCHC (32.0-37.0) g/dL RDW (11.5-14.5) % Lymphocytes # (0.90-5.00) X 10*3/uL Creatinine (0.6-1.5) mg/dL Est GFR (CKD-EPI) (>=60) BUN/Creatinine Ratio (12.00-20.00) Ratio Glucose (70-110) mg/dL POC Glucose (mg/dL) 203 H (70-110) mg/dL Calcium (8.7-10.3) mg/dL Crossmatch Microbiology - Last 24 Hours (Table) 01/29/23 09:18 Acid Fast Bacilli Smear - Preliminary Bronchoalviolar Lavage - Left 01/29/23 09:18 Gram Stain - Preliminary Bronchoalviolar Lavage - Left Assessment and Plan Assessment: 1. End-stage renal disease on hemodialysis on a Sunday schedule via left IJ permacath. Patient dialyzes out of [place] 2. Volume overload 3. Acute hypoxic respiratory failure secondary to volume overload and left lung opacification secondary to mucous plug. Status post bronchoscopy today with BAL with the removal of large amounts of mucous plug. RSV positive 4. Anemia of chronic disease , iron replete. Hemoglobin dropped to 6.5 g/dL today. 5. History of CVA with left hemiparesis 6. RSV infection Plan: Next hemodialysis on 02/01/2023's replace potassium Transfuse 1 unit packed [facility]
[2023-01-31 16:32] LABS: Glucose,Whole Blood 187 mg/dL (70-110)
[2023-01-31] MEDS: ALBUTEROL NEBULIZED 2.5 MG/3 ML INHALATION PRN (20:46)
[2023-01-31 21:08] LABS: Glucose,Whole Blood 124 mg/dL (70-110)
[2023-01-31] MEDS: LEVOTHYROXINE 50 MCG TAB PO SCH (22:07)
[2023-01-31] MEDS: MELATONIN 5 MG TABLET PO SCH (22:07)
[2023-02-01] MEDS: ALBUTEROL NEBULIZED 2.5 MG/3 ML INHALATION SCH ×5 (00:24→20:37)
[2023-02-01] MEDS: hydrOXYzine HCL 25 MG TAB PO PRN ×2 (00:56→22:35)
[2023-02-01] MEDS: HYDROmorphone 0.5 MG/0.5 ML SYRINGE IVP PRN ×7 (00:56→20:43)
[2023-02-01 05:28] LABS: Glucose,Whole Blood 122 mg/dL (70-110)
[2023-02-01] MEDS: INSULIN ASPART (NovoLOG) 100 UNIT/ML VIAL SQ SCH ×4 (05:52→20:43)
--- NOTE | 2023-02-01 06:42 | P.PN ---
Subjective Progress Note Date: 01/31/23 This is a pleasant 62 years old male with past medical history of end-stage renal disease on hemodialysis for the last 3 years, COPD, CVA/TIA, diabetes mellitus, GERD, basal cell carcinoma, cervical radiculopathy, chronic low back pain, chronic neck pain, CVA with deficit to the left side, peripheral vascular disease, DVT, dysphagia, fatty liver, foot drop, gastritis,,, gout Patient presents from [facility] for shortness of breath, patient says that she's been having this shortness of breath for 2 weeks on and off associated with cough and yellowish phlegm Patient says that he has left-sided pain and cleared his neck chest abdomen and left hip. He says that he takes Dilaudid 4 mg every 4 hours as needed. He says that he tolerates diet well and he has regular bowel movement this morning No new headache dizziness and weakness or numbness. Hemodynamically he is a stable Hemoglobin 7.9, creatinine 1.8. Baseline creatinine is unknown. 01/29/2023 Patient is seen in follow-up today reporting nausea and anti-nausea medications being ordered. Patient being followed by nephrology along with pulmonary and scheduled to undergo dialysis today as well as resuming tomorrow to keep on schedule of Sunday//Sunday. Patient received dialysis out of [place] and has been residing at an [facility]. Case management following and patient will be returning there on stabilized and discharge. Patient scheduled to undergo bronchoscopy with BAL today which is currently pending. Recommend frequent position changes and offloading of the left hip although per nursing staff patient has been refusing. Patient continued on 4 L nasal cannula and recommended wean FiO2 as tolerated. Patient is currently afebrile with no reported chest pain or palpitations. Patient continues to report shortness of breath. 01/30/2023 Patient is seen in follow-up this morning lethargic although arousable currently undergoing hemodialysis with nephrology following closely. Potassium is low today at 3.0 will be replaced per protocol. Hemoglobin is 7.0 and will follow- up in monitor and transfuse if less than 7. Patient with pulmonary following and is status post bronchoscopy with BAL and being started on antibiotics as patient had complete opacification patient with obstruction of the left bronchus on bronchoscopy with significant mucous plugs suctioned. Patient to have follow-up chest x-ray in the a.m. and will decide further if repeat bronchoscopy on as needed. Patient is currently afebrile and extremely lethargic with significant weakness. Patient will need to work with physical therapy for updated notes is patient plans on returning to [facility]. 01/31/2023 Patient seen in follow-up this morning currently sleeping although arousable. Patient hemoglobin 6.5 and will give a unit of PRBCs and is scheduled for hemodialysis tomorrow with nephrology following closely. Pulmonary following as well as patient is maintained on 5 L of oxygen via nasal cannula and underwent bronchoscopy although x-ray continues to show near complete opacification of the left lung is scheduled to undergo bronchoscopy again on . Patient has been encouraged to get up and sit up in the chair and work with physical therapy. Patient reports he has been working with physical therapy although minimally and patient is sleeping throughout most of the day and per nursing staff has been refusing to position change. Patient encouraged to cough and deep breathe and use incentive spirometer and has not been doing so. Patient reports his diet is fair although appears to be suboptimal. Patient is afebrile and maintained on Levaquin. Prognosis is guarded. CODE STATUS was discussed as patient is alert and oriented and patient wishes to remain full code Review of systems: Constitutional: reports of fatigue, no fever, or chills Cardiovascular: No reports of chest pain or palpitations Respiratory: reports of continued shortness of breath , reports coughing up blood since bronchoscopy GI: No reports of nausea and vomiting, no diarrhea : No reports of dysuria or retention, maintained on dialysis Neurovascular: reports of weakness or numbness All medications have been reviewed Physical exam: GENERAL: The patient is lethargic but arousable, alert and oriented x3, not in any acute distress. appears much older than stated age, ill appearing Well developed, well nourished. HEENT: Pupils are round and equally reacting to light. EOMI. No scleral icterus. No conjunctival pallor. Normocephalic, atraumatic. No pharyngeal erythema. No thyromegaly. CARDIOVASCULAR: S1 and S2 muffled PULMONARY: Diminished breath sounds bilaterally worse on the left with some cr ackles noted at the bases, weak inspiration ABDOMEN: Soft, nontender, nondistended, normoactive bowel sounds. No palpable organomegaly. MUSCULOSKELETAL: No joint swelling or deformity. EXTREMITIES: No cyanosis, clubbing, or pedal edema. NEUROLOGICAL: Gross neurological examination did not reveal any focal deficits. Generalized edema of upper and lower extremities SKIN: No rashes. no petechiae. Pale Assessment: Left pleural effusion, almost complete opacification, status post bronchoscopy with BAL with mucus obstruction of the bronchus on the left Acute hypoxic respiratory failure secondary to above RSV positive Ongoing left side arthritis pain, likely chronic Chronic pain syndrome on oral Dilaudid at home 4 milligrams every 4 hours end-stage renal disease on hemodialysis for the last 3 years COPD, not in exacerbation Anemia of chronic disease, hemoglobin is 6.5 today and will receive 1 unit of PRBCs History of CVA/TIA with left hemiparesis diabetes mellitus GERD History of basal cell carcinoma cervical radiculopathy chronic low back pain chronic neck pain peripheral vascular disease History of DVT dysphagia History of fatty liver History of foot drop History of gastritis History of gout Obesity with a BMI 34.0 GI prophylaxis DVT prophylaxis Full code Plan: Continue with supplemental oxygen with pulmonary following and underwent bronchoscopy with BAL with pulmonary showing multiple mucous plugs and almost complete obstruction of the left bronchus secondary to mucous plugs. Patient continues to have shortness of breath and is also maintained on breathing treatments. Follow-up chest x-ray ordered for a.m. for pulmonary with discussion of possible repeat bronchoscopy on Nephrology following this patient is end-stage renal disease maintained on dialysis Sunday//Sunday and scheduled to undergo dialysis today Recommend limiting the use of IV narcotics as patient is sedated and lethargic. Patient reported significant 10/10 pain and also having some nausea with vomiting today. left hip x-ray obtained with no acute process noted. Patient continues to have significant pain and recommending monitoring of the skin is patient is dominantl y laying on the left side and has been refusing to have position changes. Patient has been having falls and reports was at [facility] for continued PT/T therapy prior to admission Repeat labs ordered for a.m. hemoglobin is 6.5 today and will give a unit of PRBCs. Hemodialysis scheduled for tomorrow Will discuss further with case management/social work regarding discharge planning once patient is cleared by consultations. Patient will be returning to [facility] on discharge in [place]. Need updated PT/OT therapy notes and encouraged patient to work with physical therapy for evaluation Due to multiple complex medical issues, prognosis is guarded CODE STATUS was addressed and patient wishes to remain full code The impression and plan of care has been dictated by Keila Hurst, Nurse Tigist espinoza as directed. Dr. Yanique MD I have performed a history and examination and MDM of this patient, discussed the same with the dictator, and agree with the dictator's assessment and plan as written ,documented as a scribe. Based on total visit time, I have performed more than 50% of the visit. Objective - Vital Signs Vital signs: Vital Signs Temp 98.3 F 01/31/23 06:58 Pulse 77 01/31/23 09:33 Resp 17 01/31/23 06:58 BP 127/66 01/31/23 06:58 Pulse Ox 100 01/31/23 09:35 FiO2 Intake & Output 01/30/23 01/31/23 01/31/23 18:59 06:59 18:59 Intake Total 400 Output Total 2400 Balance -2000 Intake: Hemodialysis 400 Output: Hemodialysis 2400 Other: Voiding Method Toilet Diaper # Voids 1 # Bowel Movements 1 - Labs CBC & Chem 7: 01/31/23 04:20 01/31/23 04:20 Labs: Abnormal Lab Results - Last 24 Hours (Table) 01/29/23 01/30/23 01/30/23 Range/Units 09:18 16:29 21:10 RBC (4.40-5.60) X 10*6/uL Hgb (13.0-17.0) g/dL Hct (39.6-50.0) % MCV (80.0-97.0) FL MCHC (32.0-37.0) g/dL RDW (11.5-14.5) % Lymphocytes # (0.90-5.00) X 10*3/uL Creatinine (0.6-1.5) mg/dL Est GFR (CKD-EPI) (>=60) BUN/Creatinine Ratio (12.00-20.00) Ratio Glucose (70-110) mg/dL POC Glucose (mg/dL) 155 H 199 H (70-110) mg/dL Calcium (8.7-10.3) mg/dL RSV (PCR) DETECTED A (Not detected) 01/31/23 01/31/23 01/31/23 Range/Units 04:20 04:20 06:21 RBC 2.10 L (4.40-5.60) X 10*6/uL Hgb 6.5 A* (13.0-17.0) g/dL Hct 20.6 L (39.6-50.0) % MCV 98.1 H (80.0-97.0) FL MCHC 31.6 L (32.0-37.0) g/dL RDW 17.3 H (11.5-14.5) % Lymphocytes # 0.65 L (0.90-5.00) X 10*3/uL Creatinine 2.2 H (0.6-1.5) mg/dL Est GFR (CKD-EPI) 33 L (>=60) BUN/Creatinine Ratio 4.82 L (12.00-20.00) Ratio Glucose 157 H (70-110) mg/dL POC Glucose (mg/dL) 142 H (70-110) mg/dL Calcium 7.9 L (8.7-10.3) mg/dL RSV (PCR) (Not detected) Microbiology - Last 24 Hours (Table) 01/29/23 09:18 Acid Fast Bacilli Smear - Preliminary Bronchoalviolar Lavage - Left 01/29/23 09:18 Gram Stain - Preliminary Bronchoalviolar Lavage - Left
[2023-02-01] MEDS: ARTIFICIAL TEARS-HYPROMELLOSE DROPS 15 ML BTL BOTH EYES SCH ×3 (06:43→21:40)
[2023-02-01] MEDS ORDERED: LIDOCAINE 1% (10MG/ML) FOR IV START INTRADERMA PRN (07:14)
[2023-02-01] MEDS ORDERED: ONDANSETRON 4 MG/2 ML VIAL IVP PRN (07:14)
[2023-02-01] MEDS ORDERED: fentaNYL (PF) 50 MCG/ML 2 ML AMP IV PRN (07:14)
[2023-02-01 07:57] LABS: Anisocytosis Slight; Basophils % (A) 1 %; Eosinophils # (A) 0.2 k/uL (0-0.7); Eosinophils % (A) 4 %; HCT 28.1 % (39.0-53.0); Hypochromasia Marked; Lymphocytes # (A) 0.6 k/uL (1.0-4.8); Lymphocytes % (A) 15 %; MCH 31.2 pg (25.0-35.0); MCHC 31.5 g/dL (31.0-37.0); MCV 99.2 fL (80.0-100.0); Macrocytosis Slight; Mean Platelet Volume 7.1; Monocytes # (A) 0.3 k/uL (0-1.0); Monocytes % (A) 7 %; Neutrophils # (A) 2.9 k/uL (1.3-7.7); Neutrophils % (A) 71 %; Platelet Count 181 k/uL (150-450); Poikilocytosis Moderate; RBC 2.83 m/uL (4.30-5.90); RDW 17.4 % (11.5-15.5); WBC 4.1 k/uL (3.8-10.6)
[2023-02-01 08:11] LABS: African American GFR (CKD) 23 (>60 ml/min/1.73 sqM); Anion Gap 6 mmol/L; Blood Urea Nitrogen 16 mg/dL (9-20); Calcium 8.1 mg/dL (8.4-10.2); Carbon Dioxide 30 mmol/L (22-30); Chloride 99 mmol/L (98-107); Glucose 102 mg/dL (74-99); Magnesium 2.3 mg/dL (1.6-2.3); Non-African American GFR(CKD) 20 (>60 ml/min/1.73 sqM); Potassium 3.8 mmol/L (3.5-5.1); Sodium 135 mmol/L (137-145)
[2023-02-01 08:21] LABS: HGB 8.8 gm/dL (13.0-17.5)
[2023-02-01] MEDS: LACTATED RINGERS 1,000 ML IV SCH (09:03)
[2023-02-01] MEDS: FOLIC ACID-VIT B COMPLEX-VIT C 1 CAP PO SCH (09:03)
[2023-02-01] MEDS: ONDANSETRON 4 MG/2 ML VIAL IVP PRN ×2 (09:36→20:42)
[2023-02-01] MEDS: MIDODRINE 5 MG TAB PO PRN (09:42)
--- NOTE | 2023-02-01 10:44 | XR ---
EXAMINATION TYPE: XR chest 1V portable DATE OF EXAM: 02/01/2023 COMPARISON: NONE HISTORY: Hypoxemia. TECHNIQUE: Single frontal view of the chest is obtained. IMPRESSION: There is a large left pleural effusion with complete opacification of the left hemithorax. Follow to resolution is recommended. This may also represent a consolidative process or atelectasis. There does appear to be some leftward mediastinal shift. There is patchy interstitial changes throughout the right lung which are suspicious for edema. Right-sided dual lumen central venous catheter has catheter tip overlying the region of the right atr ium.
[2023-02-01 11:06] LABS: Glucose,Whole Blood 102 mg/dL (70-110)
[2023-02-01] MEDS: MENTHOL-ZINC OXIDE OINT 113 GM TUBE TOPICAL SCH ×2 (11:20→21:40)
[2023-02-01] MEDS: ENOXAPARIN 100 MG/ML SYRINGE SQ SCH (11:20)
[2023-02-01] MEDS: FAMOTIDINE 20 MG/2 ML VIAL IV SCH ×2 (11:37→20:42)
[2023-02-01] MEDS ORDERED: LACTATED RINGERS 1,000 ML IV ONE (13:03)
[2023-02-01] MEDS ORDERED: MIDAZOLAM 2 MG/2 ML VIAL ONE (13:09)
[2023-02-01] MEDS ORDERED: PROPOFOL 10 MG/ML 20 ML VIAL IV ONE (13:09)
[2023-02-01] MEDS ORDERED: fentaNYL (PF) 50 MCG/ML 2 ML AMP ONE (13:09)
[2023-02-01] MEDS ORDERED: LIDOCAINE 1% INJ 10MG/ML (20 ML MDV) ONE (13:09)
--- NOTE | 2023-02-01 14:19 | P.PN ---
Subjective Patient is seen for follow-up for end-stage renal disease. Seen on hemodialysis. Scheduled for repeat bronchoscopy today. Complaining of decreased hearing bilaterally after bronchoscopy. Objective - Vital Signs Vital signs: Vital Signs Temp 97 F L 02/01/23 13:38 Pulse 72 02/01/23 13:56 Resp 16 02/01/23 13:56 BP 125/59 02/01/23 13:56 Pulse Ox 100 02/01/23 13:56 FiO2 Intake & Output 01/31/23 02/01/23 02/01/23 18:59 06:59 18:59 Intake Total 500 225 Balance 500 225 Weight 120.202 kg Intake: IV 225 Blood Product 500 Rc As-1 Unit 0 [id number] Other: Voiding Method Toilet Diaper # Voids 1 - Exam Patient is awake, comfortable, alert oriented 3. No acute distress Examination of the heart S1 and S2 Examination of the lungs decreased breath sounds at the bases Abdomen is soft obese mild tenderness in the left lower quadrant and mid qu adrant Examination of lower extremity shows trace edema bilaterally. Patient has left hemiparesis. - Labs CBC & Chem 7: 02/01/23 06:49 02/01/23 06:49 Labs: Abnormal Lab Results - Last 24 Hours (Table) 01/31/23 01/31/23 01/31/23 Range/Units 09:53 16:31 20:59 RBC (4.30-5.90) m/uL Hgb (13.0-17.5) gm/dL Hct (39.0-53.0) % RDW (11.5-15.5) % Lymphocytes # (1.0-4.8) k/uL Sodium (137-145) mmol/L Creatinine (0.66-1.25) mg/dL Glucose (74-99) mg/dL POC Glucose (mg/dL) 187 H 124 H (70-110) mg/dL Calcium (8.4-10.2) mg/dL Crossmatch See Detail 02/01/23 02/01/23 02/01/23 Range/Units 05:26 06:49 06:49 RBC 2.83 L (4.30-5.90) m/uL Hgb 8.8 L D (13.0-17.5) gm/dL Hct 28.1 L (39.0-53.0) % RDW 17.4 H (11.5-15.5) % Lymphocytes # 0.6 L (1.0-4.8) k/uL Sodium 135 L (137-145) mmol/L Creatinine 3.13 H (0.66-1.25) mg/dL Glucose 102 H (74-99) mg/dL POC Glucose (mg/dL) 122 H (70-110) mg/dL Calcium 8.1 L (8.4-10.2) mg/dL Crossmatch Microbiology - Last 24 Hours (Table) 01/29/23 09:18 Gram Stain - Final Bronchoalviolar Lavage - Left Bronchial Washings Culture - Final Assessment and Plan Assessment: 1. End-stage renal disease on hemodialysis on a Sunday schedule via left IJ permacath. Patient dialyzes out of [place] 2. Volume overload 3. Acute hypoxic respiratory failure secondary to volume overload and left lung opacification secondary to mucous plug. Status post bronchoscopy today with BAL with the removal of large amounts of mucous plug. RSV positive 4. Anemia of chronic disease , iron replete. Hemoglobin dropped to 6.5 g/dL today. 5. History of CVA with left hemiparesis 6. RSV infection Plan: Continue [facility] Next Hemodialysis on 02/03/2023
[2023-02-01] MEDS: QUEtiapine 25 MG TAB PO SCH ×2 (14:38→20:43)
[2023-02-01] MEDS: SENNOSIDES-DOCUSATE SODIUM 1 EACH TAB PO SCH ×2 (14:38→20:42)
[2023-02-01] MEDS: allopurinoL 100 MG TAB PO SCH (14:38)
[2023-02-01] MEDS: MONTELUKAST 10 MG TAB PO SCH (14:38)
[2023-02-01] MEDS: LEVOFLOXACIN 500 MG TAB PO SCH (14:38)
[2023-02-01] MEDS: LACTULOSE 20 GM/30 ML CUP PO SCH ×2 (14:38→20:42)
--- NOTE | 2023-02-01 15:04 | P.PN ---
Subjective Progress Note Date: 02/01/23 This is a 62-year-old male patient with a known history of CVA with left-sided weakness, diabetes mellitus, chronic obstructive pulmonary disease, end-stage renal disease receiving hemodialysis, anxiety/depression, previous pleural effusions with thoracentesis most recently 3 weeks ago at [facility] in [place]. Yesterday he was seen at a outside hospital and chest x-ray revealed near complete opacification of the left lung. He was to be transferred to back to [facility] however no beds were available and he was transferred here. Chest x-ray reveals a large left and small right pleural effusion. Hemodialysis catheter in the right chest. White count 5.6. Hemoglobin 7.9. Platelets 241. Sodium 135. Potassium 3.6. Bicarb 30. BUN 9. Creatinine 1.83. Glucose 118. He is seen today in consultation on the regular medical floor. He is currently resting fairly comfortably in bed. Awake and alert in no acute distress. He is maintaining O2 saturations up to 100% on 5 L/m per nasal cannula. His been afebrile. Hemodynamically stable. He has been basically bedbound and is difficult to sit up. He has pressure ulcers as well. The patient is seen today 01/29/2023 in follow-up on the regular medical floor. He is resting comfortably in bed. Awake and alert in no acute distress. Maintaining O2 saturations up to 100% on 5 L/m per nasal cannula. He's been afebrile. Hemodynamically stable. Chest x-ray had revealed near complete white out of the left hemithorax. Ultrasound did not reveal any significant pleural effusion. He did undergo bronchoscopy with BAL with Dr. Oliver today. Large amount of mucous plug was removed from the left mainstem bronchus. Fluid analysis and cytology pending. Follow-up chest x-ray pending. He is continued on bronchodilators. The patient is seen today 01/30/2023 in follow-up on the regular medical floor. He is currently resting comfortably in bed. Awake and alert in no acute distress. Currently receiving hemodialysis. His chest x-ray showed some improvement in density of the left lung post bronchoscopy. Not a significant amount of improvement however. Bronchial wash cultures and cytology pending. Viral screen is positive for RSV. White count 5.9. Hemoglobin 7.0. Platelets 188. Sodium 135. Potassium 3.3. Bicarb 27. BUN 12. Creatinine 2.21. Glucose 126. He remains on bronchodilators. Lovenox for anticoagulation. The patient is seen today 01/31/2023 in follow-up on the regular medical floor. He is currently resting comfortably in bed. Maintaining O2 saturations up to 100% on 5 L/m per nasal cannula. He denies any worsening shortness of breath or congestion. His chest x-ray continues to show ongoing weight O and volume loss of the left hemithorax. Extensive consolidation throughout the right lung similar to slightly worsened. The plan will be for repeat bronchoscopy tomorrow. I count 5.1. Hemoglobin 6.5. Platelets 183. Sodium 136. Potassium 3.6. Bicarb 29. BUN 11. Creatinine 2.2. Glucose 157. He is continued on Levaquin. Continued on bronchodilators. Lovenox for anticoagulation. The patient is seen today 02/01/2023 in follow-up on the regular medical floor. He is awake and alert in no acute distress. He is maintaining O2 saturations again up to 100% on 5 L/m per nasal cannula. He is afebrile. Hemodynamically stable. Chest x-ray continues to show a large left complete opacification of left hemothorax. Ultrasound had revealed no fluid. He had undergone bronchoscopy with BAL and significant amount of secretions were removed with the plan is for repeat bronchoscopy today. Receiving hemodialysis today as well. He is status post 1 unit of packed red blood cells this admission. Count 4.1. Hemoglobin 8.8. Platelets 181. Sodium 135. Potassium 3.8. Bicarb 30. BUN 16. Creatinine 3.13. Glucose 102. He remains on antibiotics in the form of Levaquin. Continue bronchodilators. Therapeutic Lovenox. Objective - Vital Signs Vital signs: Vital Signs Temp 97.7 F 02/01/23 14:31 Pulse 83 02/01/23 14:31 Resp 17 02/01/23 14:31 BP 130/71 02/01/23 14:31 Pulse Ox 97 02/01/23 14:31 FiO2 Intake & Output 01/31/23 02/01/23 02/01/23 18:59 06:59 18:59 Intake Total 500 225 Balance 500 225 Weight 120.202 kg Intake: IV 225 Blood Product 500 Rc As-1 Unit 0 [id number] Other: Voiding Method Toilet Diaper # Voids 1 - Exam GENERAL EXAM: Alert, 62-year-old male, receiving hemodialysis, on 5 L nasal cannula, in no apparent distress. HEAD: Normocephalic. EYES: Normal reaction of pupils, equal size. NOSE: Clear with pink turbinates. THROAT: No erythema or exudates. NECK: No masses, no JVD. CHEST: No chest wall deformity. Hemodialysis catheter in place. LUNGS: Equal air entry with scattered rhonchi bilaterally. CVS: S1 and S2 normal with no audible murmur, regular rhythm. ABDOMEN: No hepatosplenomegaly, normal bowel sounds, no guarding or rigidity. SPINE: No scoliosis or deformity SKIN: No rashes CENTRAL NERVOUS SYSTEM: No focal deficits, tone is normal in all 4 extremities. EXTREMITIES: There is no peripheral edema. No clubbing, no cyanosis. Periphe ral pulses are intact. - Labs CBC & Chem 7: 02/01/23 06:49 02/01/23 06:49 Labs: Abnormal Lab Results - Last 24 Hours (Table) 01/31/23 01/31/23 01/31/23 Range/Units 09:53 16:31 20:59 RBC (4.30-5.90) m/uL Hgb (13.0-17.5) gm/dL Hct (39.0-53.0) % RDW (11.5-15.5) % Lymphocytes # (1.0-4.8) k/uL Sodium (137-145) mmol/L Creatinine (0.66-1.25) mg/dL Glucose (74-99) mg/dL POC Glucose (mg/dL) 187 H 124 H (70-110) mg/dL Calcium (8.4-10.2) mg/dL Crossmatch See Detail 02/01/23 02/01/23 02/01/23 Range/Units 05:26 06:49 06:49 RBC 2.83 L (4.30-5.90) m/uL Hgb 8.8 L D (13.0-17.5) gm/dL Hct 28.1 L (39.0-53.0) % RDW 17.4 H (11.5-15.5) % Lymphocytes # 0.6 L (1.0-4.8) k/uL Sodium 135 L (137-145) mmol/L Creatinine 3.13 H (0.66-1.25) mg/dL Glucose 102 H (74-99) mg/dL POC Glucose (mg/dL) 122 H (70-110) mg/dL Calcium 8.1 L (8.4-10.2) mg/dL Crossmatch Microbiology - Last 24 Hours (Table) 01/29/23 09:18 Gram Stain - Final Bronchoalviolar Lavage - Left Bronchial Washings Culture - Final Assessment and Plan Assessment: Acute hypoxemic respiratory failure secondary to near complete opacification of the left lung. Ultrasound revealed no fluid. He did undergo bronchoscopy with BAL with large amounts of mucous plugs removed from the left mainstem bronchus today. Fluid analysis, cultures pending. Cytology negative for malignancy. Viral culture positive for RSV. Pro-calcitonin 0.45. Initiated on Levaquin 500 mg every other day. Follow-up chest x-ray continues to show near complete o pacification of the left lung with infiltrates in the right. We'll plan for repeat bronchoscopy and BAL today Respiratory syncytial virus History of pleural effusions with previous thoracentesis most recently 3 weeks ago at [facility] and [place] End-stage renal disease receiving hemodialysis for approximately 3 years Acute anemia of suspected chronic disease and hemoglobin today 6.5, receiving 1 unit of packed red blood cells History of CVA with left-sided weakness Left hip pain secondary to pressure ulcers, x-ray revealed no fracture or graft diabetes mellitus History of gastric esophageal reflux disease History of DVT History of spinal cord stimulator History of anxiety/depression long term resident, basically bedbound pressure ulcers Plan: The patient was seen and evaluated Chest x-ray, labs and medications reviewed X-ray shows near complete white out again of the left lung increased infiltrates on the right We will plan for repeat bronchoscopy today Continued on Levaquin 500 mg every other day Titrate the FiO2 as tolerated Lovenox for DVT prophylaxis We will continue to follow I have personally seen and examined the patient, performed the documentation and the assessment and plan as written. Number of minutes spent on the visit: 10.
[2023-02-01 16:13] LABS: Glucose,Whole Blood 134 mg/dL (70-110)
[2023-02-01 20:42] LABS: Glucose,Whole Blood 142 mg/dL (70-110)
[2023-02-01] MEDS: MELATONIN 5 MG TABLET PO SCH (20:43)
--- NOTE | 2023-02-01 20:50 | PCN ---
PROCEDURE NOTE PROCEDURE PERFORMED: Bronchoscopy, airway examination, therapeutic lavage, BAL, left lower lobe brushes, distal left mainstem. PREOPERATIVE DIAGNOSES: Respiratory syncytial virus infection, left lung collapse, bronchitis, excess secretions. POSTOPERATIVE DIAGNOSES: Respiratory syncytial virus infection, left lung collapse, bronchitis, excess secretions. FIRST GRADE TEACHER: Dr. Rachel Dolan. There was informed consent and universal time-out. The patient's procedure took place in room #1 [facility]. ANESTHESIA PROVIDED: General anesthesia. DESCRIPTION OF PROCEDURE: After the patient was adequately sedated and being fully monitored, the bronchoscope was inserted through the left nostril. It passed through the left nasopharynx into the oropharynx. The hypopharynx was identified and topicalized. The hypopharyngeal structures, including anterior commissure, true cords, false cords, arytenoids, piriform sinuses right and left, vallecula, epiglottis, all appeared normal. The glottic opening was topicalized. The bronchoscope was pushed through the glottic opening into the trachea. Trachea appeared relatively normal. There were thick secretions noted in the left mainstem bronchus. The right side was evaluated 1st. After topicalization, the right upper lobe and its 3 segments, right middle lobe and its 2 segments, right lower lobe and its 5 segments were all found to be relatively normal. There were no major secretions or blood. There was no dominant mass or tumor. The mucosa looked normal. On the left side, there was thick mucoid bloody debris noted in the left mainstem. It was suctioned and the big clot was removed. Next, the bronchoscope was inserted down into the left lung. The left upper lobe proper and its 2 segments, the lingula and its 2 segments, and left lower lobe and its 4 segments all had significant secretions. They were suctioned with some difficulty. Any bleeding was minimal and not currently active. The mucosa appeared relatively hyperemic with erythema of the airways. There was no dominant mass or tumor. The bronchoscope was wedged into the left lower lobe. We did a BAL in the left lower lobe. In addition, there was some mucosal irregularity in the distal left mainstem and that area was brushed. The patient tolerated the procedure well. The bronchoscope was withdrawn and the patient will be recovered. MMODL / IJN: [id number] /
[2023-02-01] MEDS: LEVOTHYROXINE 50 MCG TAB PO SCH (21:40)
[2023-02-02] MEDS: HYDROmorphone 0.5 MG/0.5 ML SYRINGE IVP PRN ×3 (00:42→06:55)
[2023-02-02] MEDS: hydrOXYzine HCL 25 MG TAB PO PRN ×3 (03:59→22:33)
[2023-02-02] MEDS: LACTATED RINGERS 1,000 ML IV SCH (04:21)
[2023-02-02 04:49] LABS: Appearance,BF Blood Tinged (Clear); RBC, Body Fluid 16200 /UL (0-2000)
[2023-02-02 05:35] LABS: Glucose,Whole Blood 163 mg/dL (70-110)
--- NOTE | 2023-02-02 06:10 | P.PN ---
Subjective Progress Note Date: 02/01/23 This is a pleasant 62 years old male with past medical history of end-stage renal disease on hemodialysis for the last 3 years, COPD, CVA/TIA, diabetes mellitus, GERD, basal cell carcinoma, cervical radiculopathy, chronic low back pain, chronic neck pain, CVA with deficit to the left side, peripheral vascular disease, DVT, dysphagia, fatty liver, foot drop, gastritis,,, gout Patient presents from [facility] for shortness of breath, patient says that she's been having this shortness of breath for 2 weeks on and off associated with cough and yellowish phlegm Patient says that he has left-sided pain and cleared his neck chest abdomen and left hip. He says that he takes Dilaudid 4 mg every 4 hours as needed. He says that he tolerates diet well and he has regular bowel movement this morning No new headache dizziness and weakness or numbness. Hemodynamically he is a stable Hemoglobin 7.9, creatinine 1.8. Baseline creatinine is unknown. 01/29/2023 Patient is seen in follow-up today reporting nausea and anti-nausea medications being ordered. Patient being followed by nephrology along with pulmonary and scheduled to undergo dialysis today as well as resuming tomorrow to keep on schedule of Sunday//Sunday. Patient received dialysis out of [place] and has been [facility]. Case management following and patient will be returning there on stabilized and discharge. Patient scheduled to undergo bronchoscopy with BAL today which is currently pending. Recommend frequent position changes and offloading of the left hip although per nursing staff patient has been refusing. Patient continued on 4 L nasal cannula and recommended wean FiO2 as tolerated. Patient is currently afebrile with no reported chest pain or palpitations. Patient continues to report shortness of breath. 01/30/2023 Patient is seen in follow-up this morning lethargic although arousable currently undergoing hemodialysis with nephrology following closely. Potassium is low today at 3.0 will be replaced per protocol. Hemoglobin is 7.0 and will follow- up in monitor and transfuse if less than 7. Patient with pulmonary following and is status post bronchoscopy with BAL and being started on antibiotics as patient had complete opacification patient with obstruction of the left bronchus on bronchoscopy with significant mucous plugs suctioned. Patient to have follow-up chest x-ray in the a.m. and will decide further if repeat bronchoscopy on as needed. Patient is currently afebrile and extremely lethargic with significant weakness. Patient will need to work with physical therapy for updated notes is patient plans on returning to [facility]. 01/31/2023 Patient seen in follow-up this morning currently sleeping although arousable. Patient hemoglobin 6.5 and will give a unit of PRBCs and is scheduled for hemodialysis tomorrow with nephrology following closely. Pulmonary following as well as patient is maintained on 5 L of oxygen via nasal cannula and underwent bronchoscopy although x-ray continues to show near complete opacification of the left lung is scheduled to undergo bronchoscopy again on . Patient has been encouraged to get up and sit up in the chair and work with physical therapy. Patient reports he has been working with physical therapy although minimally and patient is sleeping throughout most of the day and per nursing staff has been refusing to position change. Patient encouraged to cough and deep breathe and use incentive spirometer and has not been doing so. Patient reports his diet is fair although appears to be suboptimal. Patient is afebrile and maintained on Levaquin. Prognosis is guarded. CODE STATUS was discussed as patient is alert and oriented and patient wishes to remain full code 02/01/2023 Patient is seen in follow-up this morning scheduled to undergo repeat bronchoscopy with pulmonary. Patient receiving hemodialysis today and will continue with nephrology following closely. Patient continues on 5 L via nasal cannula continues to report shortness of breath and [id number] patient on the left remains on x-ray imaging. Patient continues to be extremely weak and has been doing minimally with physical therapy and have encouraged increase activity as tolerated. Patient continues to report pain and chronically uses Dilaudid in the outpatient setting. Hemoglobin is improved after 1 unit of PRBC and is 8.8 today. Occasional hemoptysis with no significant bleeding noted. Patient is afebrile and continues on Levaquin every other day. Review of systems: Constitutional: reports of fatigue, no fever, or chills Cardiovascular: No reports of chest pain or palpitations Respiratory: reports of continued shortness of breath , reports coughing up blood since bronchoscopy GI: No reports of nausea and vomiting, no diarrhea : No reports of dysuria or retention, maintained on dialysis Neurovascular: reports of weakness or numbness All medications have been reviewed Physical exam: GENERAL: The patient is lethargic but arousable, alert and oriented x3, not in any acute distress. appears much older than stated age, ill appearing Well developed, well nourished. HEENT: Pupils are round and equally reacting to light. EOMI. No scleral icterus. No conjunctival pallor. Normocephalic, atraumatic. No pharyngeal erythema. No thyromegaly. CARDIOVASCULAR: S1 and S2 muffled PULMONARY: Diminished breath sounds bilaterally worse on the left with some crackles noted at the bases, weak inspiration ABDOMEN: Soft, nontender, nondistended, normoactive bowel sounds. No palpable organomegaly. MUSCULOSKELETAL: No joint swelling or deformity. EXTREMITIES: No cyanosis, clubbing, or pedal edema. NEUROLOGICAL: Gross neurological examination did not reveal any focal deficits. Generalized edema of upper and lower extremities SKIN: No rashes. no petechiae. Pale Assessment: Left pleural effusion, almost complete opacification, status post bronchoscopy with BAL with mucus obstruction of the bronchus on the left Acute hypoxic respiratory failure secondary to above RSV positive Ongoing left side arthritis pain, likely chronic Chronic pain syndrome on oral Dilaudid at home 4 milligrams every 4 hours end-stage renal disease on hemodialysis for the last 3 years COPD, not in exacerbation Anemia of chronic disease, hemoglobin is 6.5 today and will receive 1 unit of PRBCs History of CVA/TIA with left hemiparesis diabetes mellitus GERD History of basal cell carcinoma cervical radiculopathy chronic low back pain chronic neck pain peripheral vascular disease History of DVT dysphagia History of fatty liver History of foot drop History of gastritis History of gout Obesity with a BMI 34.0 GI prophylaxis DVT prophylaxis Full code Plan: Continue with supplemental oxygen with pulmonary following and as undergone bronchoscopy with BAL and scheduled to undergo repeat bronchoscopy today as patient continues to have near opacification of the left lung. Patient continues on Levaquin per pulmonary along with breathing treatments as well as 5 L of oxygen via nasal cannula. Nephrology following this patient is end-stage renal disease maintained on dialysis Sunday//Sunday and scheduled to undergo dialysis today Recommend limiting the use of IV narcotics as patient is sedated and lethargic. Patient reported significant 10/10 pain and chronically uses oral Dilaudid outpatient Repeat labs this morning reveal hemoglobin is 8.8 status post 1 unit of PRBCs. Will discuss further with case management/social work regarding discharge planning once patient is cleared by consultations. [facility] discharge in [place]. Need updated PT/OT therapy notes and encouraged patient to work with physical therapy for evaluation Due to multiple complex medical issues, prognosis is guarded CODE STATUS was addressed and patient wishes to remain full code The impression and plan of care has been dictated by Keila Hurst, Nurse Practitioner as directed. Dr. Yanique MD I have performed a history and examination and MDM of this patient, discussed the same with the dictator, and agree with the dictator's assessment and plan as written ,documented as a scribe. Based on total visit time, I have performed more than 50% of the visit. Objective - Vital Signs Vital signs: Vital Signs Temp 97.9 F 02/02/23 00:44 Pulse 90 02/02/23 00:44 Resp 20 02/02/23 00:44 BP 122/66 02/02/23 00:44 Pulse Ox 100 02/02/23 00:44 FiO2 Intake & Output 02/01/23 02/01/23 02/02/23 06:59 18:59 06:59 Intake Total 725 Output Total 1999 Balance -1275 Weight 120.202 kg Intake: IV 225 Hemodialysis 500 Output: Hemodialysis 1999 Other: Voiding Method Toilet Toilet Diaper Diaper # Voids 1 1 - Labs CBC & Chem 7: 02/01/23 06:49 02/01/23 06:49 Labs: Abnormal Lab Results - Last 24 Hours (Table) 02/01/23 02/01/23 02/01/23 Range/Units 06:49 06:49 13:30 RBC 2.83 L (4.30-5.90) m/uL Hgb 8.8 L D (13.0-17.5) gm/dL Hct 28.1 L (39.0-53.0) % RDW 17.4 H (11.5-15.5) % Lymphocytes # 0.6 L (1.0-4.8) k/uL Sodium 135 L (137-145) mmol/L Creatinine 3.13 H (0.66-1.25) mg/dL Glucose 102 H (74-99) mg/dL POC Glucose (mg/dL) (70-110) mg/dL Calcium 8.1 L (8.4-10.2) mg/dL Fluid Appearance Blood Tinged A (Clear) 02/01/23 02/01/23 02/02/23 Range/Units 16:12 20:41 05:33 RBC (4.30-5.90) m/uL Hgb (13.0-17.5) gm/dL Hct (39.0-53.0) % RDW (11.5-15.5) % Lymphocytes # (1.0-4.8) k/uL Sodium (137-145) mmol/L Creatinine (0.66-1.25) mg/dL Glucose (74-99) mg/dL POC Glucose (mg/dL) 134 H 142 H 163 H (70-110) mg/dL Calcium (8.4-10.2) mg/dL Fluid Appearance (Clear) Microbiology - Last 24 Hours (Table) 01/29/23 09:18 Gram Stain - Final Bronchoalviolar Lavage - Left Bronchial Washings Culture - Final
[2023-02-02] MEDS: INSULIN ASPART (NovoLOG) 100 UNIT/ML VIAL SQ SCH ×4 (06:55→20:37)
[2023-02-02] MEDS: ONDANSETRON 4 MG/2 ML VIAL IVP PRN ×2 (06:55→16:28)
[2023-02-02] MEDS: ARTIFICIAL TEARS-HYPROMELLOSE DROPS 15 ML BTL BOTH EYES SCH ×3 (06:55→22:35)
[2023-02-02 07:31] LABS: African American GFR (CKD) 32 (>60 ml/min/1.73 sqM); Anion Gap 9 mmol/L; Blood Urea Nitrogen 15 mg/dL (9-20); Calcium 8.1 mg/dL (8.4-10.2); Carbon Dioxide 28 mmol/L (22-30); Chloride 98 mmol/L (98-107); Glucose 126 mg/dL (74-99); Non-African American GFR(CKD) 27 (>60 ml/min/1.73 sqM); Potassium 4.1 mmol/L (3.5-5.1); Sodium 135 mmol/L (137-145)
[2023-02-02 07:35] LABS: Anisocytosis Slight; Basophils % (A) 1 %; Eosinophils # (A) 0.2 k/uL (0-0.7); Eosinophils % (A) 3 %; HCT 29.6 % (39.0-53.0); HGB 9.3 gm/dL (13.0-17.5); Hypochromasia Marked; Lymphocytes # (A) 0.7 k/uL (1.0-4.8); Lymphocytes % (A) 12 %; MCH 31.4 pg (25.0-35.0); MCHC 31.6 g/dL (31.0-37.0); MCV 99.5 fL (80.0-100.0); Macrocytosis Slight; Mean Platelet Volume 8.6; Monocytes # (A) 0.4 k/uL (0-1.0); Monocytes % (A) 7 %; Neutrophils # (A) 4.3 k/uL (1.3-7.7); Neutrophils % (A) 76 %; Platelet Count 142 k/uL (150-450); Poikilocytosis Moderate; RBC 2.97 m/uL (4.30-5.90); RDW 17.4 % (11.5-15.5); WBC 5.7 k/uL (3.8-10.6)
[2023-02-02] MEDS: ALBUTEROL NEBULIZED 2.5 MG/3 ML INHALATION SCH ×5 (08:59→20:17)
[2023-02-02] MEDS: MONTELUKAST 10 MG TAB PO SCH (09:34)
[2023-02-02] MEDS: QUEtiapine 25 MG TAB PO SCH ×2 (09:34→20:06)
[2023-02-02] MEDS: FAMOTIDINE 20 MG/2 ML VIAL IV SCH ×2 (09:34→20:32)
[2023-02-02] MEDS: allopurinoL 100 MG TAB PO SCH (09:34)
[2023-02-02] MEDS: SENNOSIDES-DOCUSATE SODIUM 1 EACH TAB PO SCH ×2 (09:35→20:08)
[2023-02-02] MEDS: FOLIC ACID-VIT B COMPLEX-VIT C 1 CAP PO SCH (09:35)
[2023-02-02] MEDS: MENTHOL-ZINC OXIDE OINT 113 GM TUBE TOPICAL SCH ×2 (09:35→20:37)
[2023-02-02] MEDS: LACTULOSE 20 GM/30 ML CUP PO SCH ×2 (09:35→20:08)
[2023-02-02] MEDS: ENOXAPARIN 100 MG/ML SYRINGE SQ SCH (09:35)
[2023-02-02] MEDS: HYDROmorphone 1 MG/ML 1 ML SYRINGE IVP PRN ×4 (09:35→20:30)
[2023-02-02 12:07] LABS: Glucose,Whole Blood 154 mg/dL (70-110)
--- NOTE | 2023-02-02 12:13 | XR ---
EXAMINATION TYPE: XR chest 1V portable DATE OF EXAM: 02/02/2023 11:50 AM CLINICAL INDICATION:Male, 62 years old with history of Pneumonia; H COMPARISON: Chest radiographs from 02/01/2023. TECHNIQUE: XR chest 1V portable Frontal view of the chest. FINDINGS: Lungs/Pleura: Large left pleural effusion with associated atelectasis. Areas blunting of the right co stophrenic angle. Pulmonary vascularity: Unremarkable. Heart/mediastinum: Cardiomediastinal silhouette is unremarkable. Musculoskeletal: No acute osseous pathology. There is fixation hardware in the lower cervical spine. Other findings: Vascular clip projects within the left axilla. Stimulation leads project over the spi ne. Lines/Tubes: Right internal jugular central venous catheter with distal tip at the cavoatrial junction. IMPRESSION: 1. Large left and small right pleural effusions. 2. Right central venous catheter appropriate position.
--- NOTE | 2023-02-02 12:43 | P.PN ---
Subjective Patient is seen for follow-up for end-stage renal disease. Status post hemodialysis yesterday with UF of 2 L. Status post repeat bronchoscopy and bronchoalveolar lavage on 02/01/2023 y. Objective - Vital Signs Vital signs: Vital Signs Temp 98.4 F 02/02/23 07:29 Pulse 88 02/02/23 09:12 Resp 18 02/02/23 07:29 BP 97/58 02/02/23 07:29 Pulse Ox 99 02/02/23 08:59 FiO2 Intake & Output 02/01/23 02/02/23 02/02/23 18:59 06:59 18:59 Intake Total 725 Output Total 1999 Balance -1275 Weight 120.202 kg Intake: IV 225 Hemodialysis 500 Output: Hemodialysis 1999 Other: Voiding Method Toilet Diaper # Voids 1 # Bowel Movements 1 1 - Exam Patient is awake, comfortable, alert oriented 3. No acute distress Examination of the heart S1 and S2 Examination of the lungs decreased breath sounds at the bases Abdomen is soft obese mild tenderness in the left lower quadrant and mid quadrant Examination of lower extremity shows trace edema bilaterally. Patient has left hemiparesis. - Labs CBC & Chem 7: 02/02/23 06:55 02/02/23 07:01 Labs: Abnormal Lab Results - Last 24 Hours (Table) 02/01/23 02/01/23 02/01/23 Range/Units 13:30 16:12 20:41 RBC (4.30-5.90) m/uL Hgb (13.0-17.5) gm/dL Hct (39.0-53.0) % RDW (11.5-15.5) % Plt Count (150-450) k/uL Lymphocytes # (1.0-4.8) k/uL Sodium (137-145) mmol/L Creatinine (0.66-1.25) mg/dL Glucose (74-99) mg/dL POC Glucose (mg/dL) 134 H 142 H (70-110) mg/dL Calcium (8.4-10.2) mg/dL Fluid Appearance Blood Tinged A (Clear) 02/02/23 02/02/23 02/02/23 Range/Units 05:33 06:55 07:01 RBC 2.97 L (4.30-5.90) m/uL Hgb 9.3 L (13.0-17.5) gm/dL Hct 29.6 L (39.0-53.0) % RDW 17.4 H (11.5-15.5) % Plt Count 142 L (150-450) k/uL Lymphocytes # 0.7 L (1.0-4.8) k/uL Sodium 135 L (137-145) mmol/L Creatinine 2.42 H (0.66-1.25) mg/dL Glucose 126 H (74-99) mg/dL POC Glucose (mg/dL) 163 H (70-110) mg/dL Calcium 8.1 L (8.4-10.2) mg/dL Fluid Appearance (Clear) 02/02/23 Range/Units 12:01 RBC (4.30-5.90) m/uL Hgb (13.0-17.5) gm/dL Hct (39.0-53.0) % RDW (11.5-15.5) % Plt Count (150-450) k/uL Lymphocytes # (1.0-4.8) k/uL Sodium (137-145) mmol/L Creatinine (0.66-1.25) mg/dL Glucose (74-99) mg/dL POC Glucose (mg/dL) 154 H (70-110) mg/dL Calcium (8.4-10.2) mg/dL Fluid Appearance (Clear) Microbiology - Last 24 Hours (Table) 01/29/23 09:18 Gram Stain - Final Bronchoalviolar Lavage - Left Bronchial Washings Culture - Final Assessment and Plan Assessment: 1. End-stage renal disease on hemodialysis on a Sunday schedule via left IJ permacath. Patient dialyzes out of [place] 2. Volume overload 3. Acute hypoxic respiratory failure secondary to volume overload and left lung opacification secondary to mucous plug. Status post bronchoscopy today with BAL with the removal of large amounts of mucous plug. RSV positive 4. Anemia of chronic disease , iron replete. Hemoglobin dropped to 6.5 g/dL today. 5. History of CVA with left hemiparesis 6. RSV infection with left lung collapse status post bronchoscopy and bronchoalveolar lavage 2 Plan: Continue [facility] in a.m. with UF of 2L as tolerated.
--- NOTE | 2023-02-02 13:20 | P.PN ---
Subjective Progress Note Date: 02/02/23 This is a pleasant 62 years old male with past medical history of end-stage renal disease on hemodialysis for the last 3 years, COPD, CVA/TIA, diabetes mellitus, GERD, basal cell carcinoma, cervical radiculopathy, chronic low back pain, chronic neck pain, CVA with deficit to the left side, peripheral vascular disease, DVT, dysphagia, fatty liver, foot drop, gastritis,,, gout Patient presents from [facility] for shortness of breath, patient says that she's been having this shortness of breath for 2 weeks on and off associated with cough and yellowish phlegm Patient says that he has left-sided pain and cleared his neck chest abdomen and left hip. He says that he takes Dilaudid 4 mg every 4 hours as needed. He says that he tolerates diet well and he has regular bowel movement this morning No new headache dizziness and weakness or numbness. Hemodynamically he is a stable Hemoglobin 7.9, creatinine 1.8. Baseline creatinine is unknown. 01/29/2023 Patient is seen in follow-up today reporting nausea and anti-nausea medications being ordered. Patient being followed by nephrology along with pulmonary and scheduled to undergo dialysis today as well as resuming tomorrow to keep on schedule of Sunday//Sunday. Patient received dialysis out of [place] and has been residing at an [facility]. Case management following and patient will be returning there on stabilized and discharge. Patient scheduled to undergo bronchoscopy with BAL today which is currently pending. Recommend frequent position changes and offloading of the left hip although per nursing staff patient has been refusing. Patient continued on 4 L nasal cannula and recommended wean FiO2 as tolerated. Patient is currently afebrile with no reported chest pain or palpitations. Patient continues to report shortness of breath. 01/30/2023 Patient is seen in follow-up this morning lethargic although arousable currently undergoing hemodialysis with nephrology following closely. Potassium is low today at 3.0 will be replaced per protocol. Hemoglobin is 7.0 and will follow- up in monitor and transfuse if less than 7. Patient with pulmonary following and is status post bronchoscopy with BAL and being started on antibiotics as patient had complete opacification patient with obstruction of the left bronchus on bronchoscopy with significant mucous plugs suctioned. Patient to have follow-up chest x-ray in the a.m. and will decide further if repeat bronchoscopy on as needed. Patient is currently afebrile and extremely lethargic with significant weakness. Patient will need to work with physical therapy for updated notes is patient plans on returning to [facility]. 01/31/2023 Patient seen in follow-up this morning currently sleeping although arousable. Patient hemoglobin 6.5 and will give a unit of PRBCs and is scheduled for hemodialysis tomorrow with nephrology following closely. Pulmonary following as well as patient is maintained on 5 L of oxygen via nasal cannula and underwent bronchoscopy although x-ray continues to show near complete opacification of the left lung is scheduled to undergo bronchoscopy again on . Patient has been encouraged to get up and sit up in the chair and work with physical therapy. Patient reports he has been working with physical therapy although minimally and patient is sleeping throughout most of the day and per nursing staff has been refusing to position change. Patient encouraged to cough and deep breathe and use incentive spirometer and has not been doing so. Patient reports his diet is fair although appears to be suboptimal. Patient is afebrile and maintained on Levaquin. Prognosis is guarded. CODE STATUS was discussed as patient is alert and oriented and patient wishes to remain full code 02/01/2023 Patient is seen in follow-up this morning scheduled to undergo repeat bronchoscopy with pulmonary. Patient receiving hemodialysis today and will continue with nephrology following closely. Patient continues on 5 L via nasal cannula continues to report shortness of breath and [id number] patient on the left remains on x-ray imaging. Patient continues to be extremely weak and has been doing minimally with physical therapy and have encouraged increase activity as tolerated. Patient continues to report pain and chronically uses Dilaudid in the outpatient setting. Hemoglobin is improved after 1 unit of PRBC and is 8.8 today. Occasional hemoptysis with no significant bleeding noted. Patient is afebrile and continues on Levaquin every other day. 02/02/2023 Patient is seen in follow-up today currently continued on 5 L and reports he chronically wears this outpatient. Patient maintained on T //Sunday hemodialysis schedule and will continue. Patient with significant weakness and continues to report pain and pain with coughing of the left side and is status post bronchoscopy 2 with BAL. Follow-up chest x-ray today shows large left and small right pleural effusion. Patient is continued on breathing treatments in the form of albuterol and will continue. Patient work with physical therapy and awaiting updated notes to submit to insurance for authorization for patient to return to [facility]. Case management following and has submitted which is currently pending. Patient is afebrile with no reports of worsening shortness of breath. Patient denies any chest pain. Patient reports he chronically takes oral Dilaudid at home and has been having continued pain. Will adjust the dose slightly and encouraged the patient to increase activity as tolerated. Patient has not been getting out much and has been refusing position changes to offload on that left hip. Continue with local wound care as well. Review of systems: Constitutional: no reports of fatigue, no fever, or chills Cardiovascular: No reports of chest pain or palpitations Respiratory: reports of continued shortness of breathbut no worse , reports coughing up blood since bronchoscopy And having pain with cough on the left side GI: No reports of nausea and vomiting, no diarrhea : No reports of dysuria or retention, maintained on dialysis Neurovascular: reports of weakness or numbness All medications have been reviewed Physical exam: GENERAL: The patient ismore awake today, alert and oriented x3. appears much older than stated age, ill appearing Well developed, well nourished. Obese HEENT: Pupils are round and equally reacting to light. EOMI. No scleral icterus. No conjunctival pallor. Normocephalic, atraumatic. No pharyngeal erythema. No thyromegaly. CARDIOVASCULAR: S1 and S2 muffled PULMONARY: Diminished breath sounds bilaterally worse on the left with some crackles noted at the bases, weak inspiration ABDOMEN: Soft, nontender, nondistended, normoactive bowel sounds. No palpable organomegaly. MUSCULOSKELETAL: No joint swelling or deformity. EXTREMITIES: No cyanosis, clubbing, or pedal edema. NEUROLOGICAL: Gross neurological examination did not reveal any focal deficits. Generalized edema of upper and lower extremities SKIN: No rashes. no petechiae. Pale Assessment: Left pleural effusion, almost complete opacification, status post bronchoscopy with BAL times to this admission with mucus obstruction of the bronchus on the left Acute on chronic hypoxic respiratory failure secondary to above RSV positive Ongoing left side arthritis pain, likely chronic Chronic pain syndrome on oral Dilaudid at home 4 milligrams every 4 hours end-stage renal disease on hemodialysis for the last 3 years, Maintained on Sunday//Sunday COPD, not in exacerbation Anemia of chronic disease, status post 1 unit of PRBCs, Improved History of CVA/TIA with left hemiparesis diabetes mellitus GERD History of basal cell carcinoma cervical radiculopathy chronic low back pain chronic neck pain peripheral vascular disease History of DVT dysphagia History of fatty liver History of foot drop History of gastritis History of gout Obesity with a BMI 34.0 GI prophylaxis DVT prophylaxis Full code Plan: Continue with supplemental oxygen with pulmonary following and as undergone bronchoscopy with BAL2 as patient continues to have near opacification of the left lung. Patient continues on Levaquin per pulmonary along with breathing treatments as well as 5 L of oxygen via nasal cannula. Patient reports he wears oxygen outpatient on 5 L Nephrology following this patient is end-stage renal disease maintained on dialysis Sunday//Sunday Patient reported significant 10/10 pain and chronically uses oral Dilaudid outpatient. Medication adjustments made Will discuss further with case management/social work regarding discharge plan emy once patient is cleared by consultations. Patient will require insurance authorization which has been submitted Patient will be returning to [facility] on discharge in [place]. Recommend working with physical therapy/occupational therapy daily Due to multiple complex medical issues, prognosis is guarded CODE STATUS was addressed and patient wishes to remain full code Possible discharge in the next 24-48 hours otherwise his insurance authorization is not obtained, given the holiday weekend patient will not likely discharge until Sunday The impression and plan of care has been dictated by Keila Hurst, Nurse Practitioner as directed. Dr. Yanique MD I have performed a history and examination and MDM of this patient, discussed the same with the dictator, and agree with the dictator's assessment and plan as written ,documented as a scribe. Based on total visit time, I have performed more than 50% of the visit. Objective - Vital Signs Vital signs: Vital Signs Temp 98.4 F 02/02/23 07:29 Pulse 88 02/02/23 09:12 Resp 18 02/02/23 07:29 BP 97/58 02/02/23 07:29 Pulse Ox 99 02/02/23 08:59 FiO2 Intake & Output 02/01/23 02/02/23 02/02/23 18:59 06:59 18:59 Intake Total 725 Output Total 1999 Balance -1275 Weight 120.202 kg Intake: IV 225 Hemodialysis 500 Output: Hemodialysis 1999 Other: Voiding Method Toilet Diaper # Voids 1 # Bowel Movements 1 1 - Labs CBC & Chem 7: 02/02/23 06:55 02/02/23 07:01 Labs: Abnormal Lab Results - Last 24 Hours (Table) 02/01/23 02/01/23 02/01/23 Range/Units 13:30 16:12 20:41 RBC (4.30-5.90) m/uL Hgb (13.0-17.5) gm/dL Hct (39.0-53.0) % RDW (11.5-15.5) % Plt Count (150-450) k/uL Lymphocytes # (1.0-4.8) k/uL Sodium (137-145) mmol/L Creatinine (0.66-1.25) mg/dL Glucose (74-99) mg/dL POC Glucose (mg/dL) 134 H 142 H (70-110) mg/dL Calcium (8.4-10.2) mg/dL Fluid Appearance Blood Tinged A (Clear) 02/02/23 02/02/23 02/02/23 Range/Units 05:33 06:55 07:01 RBC 2.97 L (4.30-5.90) m/uL Hgb 9.3 L (13.0-17.5) gm/dL Hct 29.6 L (39.0-53.0) % RDW 17.4 H (11.5-15.5) % Plt Count 142 L (150-450) k/uL Lymphocytes # 0.7 L (1.0-4.8) k/uL Sodium 135 L (137-145) mmol/L Creatinine 2.42 H (0.66-1.25) mg/dL Glucose 126 H (74-99) mg/dL POC Glucose (mg/dL) 163 H (70-110) mg/dL Calcium 8.1 L (8.4-10.2) mg/dL Fluid Appearance (Clear) Microbiology - Last 24 Hours (Table) 01/29/23 09:18 Gram Stain - Final Bronchoalviolar Lavage - Left Bronchial Washings Culture - Final
--- NOTE | 2023-02-02 14:39 | P.PN ---
Subjective Progress Note Date: 02/02/23 This is a 62-year-old male patient with a known history of CVA with left-sided weakness, diabetes mellitus, chronic obstructive pulmonary disease, end-stage renal disease receiving hemodialysis, anxiety/depression, previous pleural effusions with thoracentesis most recently 3 weeks ago at [facility] in [place]. Yesterday he was seen at a outside hospital and chest x-ray revealed near complete opacification of the left lung. He was to be transferred to back to [facility] however no beds were available and he was transferred here. Chest x-ray reveals a large left and small right pleural effusion. Hemodialysis catheter in the right chest. White count 5.6. Hemoglobin 7.9. Platelets 241. Sodium 135. Potassium 3.6. Bicarb 30. BUN 9. Creatinine 1.83. Glucose 118. He is seen today in consultation on the regular medical floor. He is currently resting fairly comfortably in bed. Awake and alert in no acute distress. He is maintaining O2 saturations up to 100% on 5 L/m per nasal cannula. His been afebrile. Hemodynamically stable. He has been basically bedbound and is difficult to sit up. He has pressure ulcers as well. The patient is seen today 01/29/2023 in follow-up on the regular medical floor. He is resting comfortably in bed. Awake and alert in no acute distress. Maintaining O2 saturations up to 100% on 5 L/m per nasal cannula. He's been afebrile. Hemodynamically stable. Chest x-ray had revealed near complete white out of the left hemithorax. Ultrasound did not reveal any significant pleural effusion. He did undergo bronchoscopy with BAL with Dr. Oliver today. Large amount of mucous plug was removed from the left mainstem bronchus. Fluid analysis and cytology pending. Follow-up chest x-ray pending. He is continued on bronchodilators. The patient is seen today 01/30/2023 in follow-up on the regular medical floor. He is currently resting comfortably in bed. Awake and alert in no acute distress. Currently receiving hemodialysis. His chest x-ray showed some improvement in density of the left lung post bronchoscopy. Not a significant amount of improvement however. Bronchial wash cultures and cytology pending. Viral screen is positive for RSV. White count 5.9. Hemoglobin 7.0. Platelets 188. Sodium 135. Potassium 3.3. Bicarb 27. BUN 12. Creatinine 2.21. Glucose 126. He remains on bronchodilators. Lovenox for anticoagulation. The patient is seen today 01/31/2023 in follow-up on the regular medical floor. He is currently resting comfortably in bed. Maintaining O2 saturations up to 100% on 5 L/m per nasal cannula. He denies any worsening shortness of breath or congestion. His chest x-ray continues to show ongoing weight O and volume loss of the left hemithorax. Extensive consolidation throughout the right lung similar to slightly worsened. The plan will be for repeat bronchoscopy tomorrow. I count 5.1. Hemoglobin 6.5. Platelets 183. Sodium 136. Potassium 3.6. Bicarb 29. BUN 11. Creatinine 2.2. Glucose 157. He is continued on Levaquin. Continued on bronchodilators. Lovenox for anticoagulation. The patient is seen today 02/01/2023 in follow-up on the regular medical floor. He is awake and alert in no acute distress. He is maintaining O2 saturations again up to 100% on 5 L/m per nasal cannula. He is afebrile. Hemodynamically stable. Chest x-ray continues to show a large left complete opacification of left hemothorax. Ultrasound had revealed no fluid. He had undergone bronchoscopy with BAL and significant amount of secretions were removed with the plan is for repeat bronchoscopy today. Receiving hemodialysis today as well. He is status post 1 unit of packed red blood cells this admission. Count 4.1. Hemoglobin 8.8. Platelets 181. Sodium 135. Potassium 3.8. Bicarb 30. BUN 16. Creatinine 3.13. Glucose 102. He remains on antibiotics in the form of Levaquin. Continue bronchodilators. Therapeutic Lovenox. The patient is seen today 02/02/2023 in follow-up on the regular medical floor. He is awake and alert in no acute distress. Maintaining O2 saturations in the 90s on 4 L/m per nasal cannula. X-ray reveals large left and small right pleural effusions. Right central venous catheter in position. The patient has undergone 2 bronchoscopies with BAL's impressions this admission. Told she revealed no evidence of malignancy. The second bronchoscopy just revealed a large blood clot in the left mainstem bronchus which was removed completely. Bronchial cultures revealed no growth. They were positive for RSV. He is status post 1 unit of packed red blood cells this admission. Current hemoglobin 9.3. Platelets 142. White count 5.7. Sodium 135. Potassium 4.1 bicarb 28. BUN 15. Creatinine 2.42. Glucose 126. He had undergone hemodialysis yesterday with 2 L of ultrafiltration. Plan is to continue Sunday schedule. He remains on antibiotics in the form of Levaquin. Continued on bronchodilators. Objective - Vital Signs Vital signs: Vital Signs Temp 98.4 F 02/02/23 07:29 Pulse 88 02/02/23 09:12 Resp 18 02/02/23 07:29 BP 97/58 02/02/23 07:29 Pulse Ox 99 02/02/23 08:59 FiO2 Intake & Output 02/01/23 02/02/23 02/02/23 18:59 06:59 18:59 Intake Total 725 Output Total 1999 Balance -1275 Weight 120.202 kg Intake: IV 225 Hemodialysis 500 Output: Hemodialysis 1999 Other: Voiding Method Toilet Diaper # Voids 1 # Bowel Movements 1 1 - Exam GENERAL EXAM: Alert, pleasant 62-year-old male, resting comfortably in bed, on 4 L nasal cannula, in no apparent distress. HEAD: Normocephalic. EYES: Normal reaction of pupils, equal size. NOSE: Clear with pink turbinates. THROAT: No erythema or exudates. NECK: No masses, no JVD. CHEST: No chest wall deformity. Hemodialysis catheter in place. LUNGS: Equal air entry with scattered rhonchi bilaterally left greater than right. CVS: S1 and S2 normal with no audible murmur, regular rhythm. ABDOMEN: No hepatosplenomegaly, normal bowel sounds, no guarding or rigidity. SPINE: No scoliosis or deformity SKIN: No rashes CENTRAL NERVOUS SYSTEM: No focal deficits, tone is normal in all 4 extremities. EXTREMITIES: There is no peripheral edema. No clubbing, no cyanosis. Perip heral pulses are intact. - Labs CBC & Chem 7: 02/02/23 06:55 02/02/23 07:01 Labs: Abnormal Lab Results - Last 24 Hours (Table) 02/01/23 02/01/23 02/01/23 Range/Units 13:30 16:12 20:41 RBC (4.30-5.90) m/uL Hgb (13.0-17.5) gm/dL Hct (39.0-53.0) % RDW (11.5-15.5) % Plt Count (150-450) k/uL Lymphocytes # (1.0-4.8) k/uL Sodium (137-145) mmol/L Creatinine (0.66-1.25) mg/dL Glucose (74-99) mg/dL POC Glucose (mg/dL) 134 H 142 H (70-110) mg/dL Calcium (8.4-10.2) mg/dL Fluid Appearance Blood Tinged A (Clear) 02/02/23 02/02/23 02/02/23 Range/Units 05:33 06:55 07:01 RBC 2.97 L (4.30-5.90) m/uL Hgb 9.3 L (13.0-17.5) gm/dL Hct 29.6 L (39.0-53.0) % RDW 17.4 H (11.5-15.5) % Plt Count 142 L (150-450) k/uL Lymphocytes # 0.7 L (1.0-4.8) k/uL Sodium 135 L (137-145) mmol/L Creatinine 2.42 H (0.66-1.25) mg/dL Glucose 126 H (74-99) mg/dL POC Glucose (mg/dL) 163 H (70-110) mg/dL Calcium 8.1 L (8.4-10.2) mg/dL Fluid Appearance (Clear) 02/02/23 Range/Units 12:01 RBC (4.30-5.90) m/uL Hgb (13.0-17.5) gm/dL Hct (39.0-53.0) % RDW (11.5-15.5) % Plt Count (150-450) k/uL Lymphocytes # (1.0-4.8) k/uL Sodium (137-145) mmol/L Creatinine (0.66-1.25) mg/dL Glucose (74-99) mg/dL POC Glucose (mg/dL) 154 H (70-110) mg/dL Calcium (8.4-10.2) mg/dL Fluid Appearance (Clear) Microbiology - Last 24 Hours (Table) 01/29/23 09:18 Gram Stain - Final Bronchoalviolar Lavage - Left Bronchial Washings Culture - Final Assessment and Plan Assessment: Acute hypoxemic respiratory failure secondary to near complete opacification of the left lung. Ultrasound revealed no fluid. He did undergo bronchoscopy with BAL with large amounts of mucous plugs removed from the left mainstem bronchus 01/29/2023. Cultures revealed no growth. Cytology negative for malignancy. Viral culture positive for RSV. Pro-calcitonin 0.45. Initiated on Levaquin 500 mg every other day. Follow-up chest x-ray continues to show near complete opacification of the left lung with infiltrates in the right. Bronchoscopy from 02/01/2023 revealed evidence of a large blood clot in the left mainstem bronchus that was completely removed and airways appeared open. Follow-up chest x-ray continues to show opacification of the left lung. Respiratory syncytial virus found on bronchoscopy with BAL History of pleural effusions with previous thoracentesis most recently 3 weeks ago at [facility] and [place] End-stage renal disease receiving hemodialysis for approximately 3 years Acute anemia of suspected chronic disease and hemoglobin today 6.5, received 1 unit of packed red blood cells at current hemoglobin 9.3 History of CVA with left-sided weakness Left hip pain secondary to pressure ulcers, x-ray revealed no fracture or graft diabetes mellitus History of gastric esophageal reflux disease History of DVT History of spinal cord stimulator History of anxiety/depression retirement resident, basically bedbound pressure ulcers Plan: The patient was seen and evaluated Chest x-ray, labs and medications reviewed X-ray shows near complete white out again of the left lung Second bronchoscopy revealed a large blood clot in the left mainstem bronchus that was completely removed No further secretions were noted in the left lung or right lung base Receiving hemodialysis Sunday Continued on Levaquin 500 mg every other day Titrate the FiO2 as tolerated Plan is for [facility] upon discharge This patient was seen independently by the pulmonary nurse practitioner I have personally seen and examined the patient, performed the documentation and the assessment and plan as written. Number of minutes spent on the visit: 24.
[2023-02-02 16:25] LABS: Glucose,Whole Blood 203 mg/dL (70-110)
[2023-02-02] MEDS: MELATONIN 5 MG TABLET PO SCH (20:06)
[2023-02-02 20:10] LABS: Glucose,Whole Blood 140 mg/dL (70-110)
[2023-02-02] MEDS: LEVOTHYROXINE 50 MCG TAB PO SCH (22:33)
[2023-02-03] MEDS: HYDROmorphone 1 MG/ML 1 ML SYRINGE IVP PRN ×6 (00:33→21:10)
[2023-02-03] MEDS: ONDANSETRON 4 MG/2 ML VIAL IVP PRN ×3 (00:33→17:00)
[2023-02-03 05:56] LABS: Glucose,Whole Blood 175 mg/dL (70-110)
[2023-02-03] MEDS: LACTATED RINGERS 1,000 ML IV SCH (06:20)
[2023-02-03] MEDS: INSULIN ASPART (NovoLOG) 100 UNIT/ML VIAL SQ SCH ×4 (06:20→21:09)
[2023-02-03] MEDS: ARTIFICIAL TEARS-HYPROMELLOSE DROPS 15 ML BTL BOTH EYES SCH ×3 (06:20→21:10)
[2023-02-03] MEDS: QUEtiapine 25 MG TAB PO SCH ×2 (08:24→21:09)
[2023-02-03] MEDS: MONTELUKAST 10 MG TAB PO SCH (08:24)
[2023-02-03] MEDS: SENNOSIDES-DOCUSATE SODIUM 1 EACH TAB PO SCH ×2 (08:24→21:08)
[2023-02-03] MEDS: ENOXAPARIN 100 MG/ML SYRINGE SQ SCH (08:25)
[2023-02-03] MEDS: FAMOTIDINE 20 MG/2 ML VIAL IV SCH ×2 (08:25→21:09)
[2023-02-03] MEDS: FOLIC ACID-VIT B COMPLEX-VIT C 1 CAP PO SCH (08:25)
[2023-02-03] MEDS: MENTHOL-ZINC OXIDE OINT 113 GM TUBE TOPICAL SCH ×2 (08:26→21:10)
[2023-02-03] MEDS: LACTULOSE 20 GM/30 ML CUP PO SCH ×2 (08:26→21:12)
[2023-02-03] MEDS: allopurinoL 100 MG TAB PO SCH (08:34)
[2023-02-03] MEDS: ALBUTEROL NEBULIZED 2.5 MG/3 ML INHALATION SCH ×4 (08:47→21:21)
[2023-02-03] MEDS: MIDODRINE 5 MG TAB PO PRN (08:53)
[2023-02-03] MEDS: hydrOXYzine HCL 25 MG TAB PO PRN (08:53)
--- NOTE | 2023-02-03 10:58 | P.PN ---
Subjective Progress Note Date: 02/03/23 This is a 62-year-old male patient with a known history of CVA with left-sided weakness, diabetes mellitus, chronic obstructive pulmonary disease, end-stage renal disease receiving hemodialysis, anxiety/depression, previous pleural effusions with thoracentesis most recently 3 weeks ago at [facility] in [place]. Yesterday he was seen at a outside hospital and chest x-ray revealed near complete opacification of the left lung. He was to be transferred to back to [facility] however no beds were available and he was transferred here. Chest x-ray reveals a large left and small right pleural effusion. Hemodialysis catheter in the right chest. White count 5.6. Hemoglobin 7.9. Platelets 241. Sodium 135. Potassium 3.6. Bicarb 30. BUN 9. Creatinine 1.83. Glucose 118. He is seen today in consultation on the regular medical floor. He is currently resting fairly comfortably in bed. Awake and alert in no acute distress. He is maintaining O2 saturations up to 100% on 5 L/m per nasal cannula. His been afebrile. Hemodynamically stable. He has been basically bedbound and is difficult to sit up. He has pressure ulcers as well. The patient is seen today 01/29/2023 in follow-up on the regular medical floor. He is resting comfortably in bed. Awake and alert in no acute distress. Maintaining O2 saturations up to 100% on 5 L/m per nasal cannula. He's been afebrile. Hemodynamically stable. Chest x-ray had revealed near complete white out of the left hemithorax. Ultrasound did not reveal any significant pleural effusion. He did undergo bronchoscopy with BAL with Dr. Oliver today. Large amount of mucous plug was removed from the left mainstem bronchus. Fluid analysis and cytology pending. Follow-up chest x-ray pending. He is continued on bronchodilators. The patient is seen today 01/30/2023 in follow-up on the regular medical floor. He is currently resting comfortably in bed. Awake and alert in no acute distress. Currently receiving hemodialysis. His chest x-ray showed some improvement in density of the left lung post bronchoscopy. Not a significant amount of improvement however. Bronchial wash cultures and cytology pending. Viral screen is positive for RSV. White count 5.9. Hemoglobin 7.0. Platelets 188. Sodium 135. Potassium 3.3. Bicarb 27. BUN 12. Creatinine 2.21. Glucose 126. He remains on bronchodilators. Lovenox for anticoagulation. The patient is seen today 01/31/2023 in follow-up on the regular medical floor. He is currently resting comfortably in bed. Maintaining O2 saturations up to 100% on 5 L/m per nasal cannula. He denies any worsening shortness of breath or congestion. His chest x-ray continues to show ongoing weight O and volume loss of the left hemithorax. Extensive consolidation throughout the right lung similar to slightly worsened. The plan will be for repeat bronchoscopy tomorrow. I count 5.1. Hemoglobin 6.5. Platelets 183. Sodium 136. Potassium 3.6. Bicarb 29. BUN 11. Creatinine 2.2. Glucose 157. He is continued on Levaquin. Continued on bronchodilators. Lovenox for anticoagulation. The patient is seen today 02/01/2023 in follow-up on the regular medical floor. He is awake and alert in no acute distress. He is maintaining O2 saturations again up to 100% on 5 L/m per nasal cannula. He is afebrile. Hemodynamically stable. Chest x-ray continues to show a large left complete opacification of left hemothorax. Ultrasound had revealed no fluid. He had undergone bronchoscopy with BAL and significant amount of secretions were removed with the plan is for repeat bronchoscopy today. Receiving hemodialysis today as well. He is status post 1 unit of packed red blood cells this admission. Count 4.1. Hemoglobin 8.8. Platelets 181. Sodium 135. Potassium 3.8. Bicarb 30. BUN 16. Creatinine 3.13. Glucose 102. He remains on antibiotics in the form of Levaquin. Continue bronchodilators. Therapeutic Lovenox. The patient is seen today 02/02/2023 in follow-up on the regular medical floor. He is awake and alert in no acute distress. Maintaining O2 saturations in the 90s on 4 L/m per nasal cannula. X-ray reveals large left and small right pleural effusions. Right central venous catheter in position. The patient has undergone 2 bronchoscopies with BAL's impressions this admission. Told she revealed no evidence of malignancy. The second bronchoscopy just revealed a large blood clot in the left mainstem bronchus which was removed completely. Bronchial cultures revealed no growth. They were positive for RSV. He is status post 1 unit of packed red blood cells this admission. Current hemoglobin 9.3. Platelets 142. White count 5.7. Sodium 135. Potassium 4.1 bicarb 28. BUN 15. Creatinine 2.42. Glucose 126. He had undergone hemodialysis yesterday with 2 L of ultrafiltration. Plan is to continue Sunday schedule. He remains on antibiotics in the form of Levaquin. Continued on bronchodilators. The patient is seen today 02/03/2023 in follow-up on the regular medical floor. He is currently resting comfortably in bed. Awake and alert in no acute distress. Maintaining O2 saturations in the 90s on 2 L/m per nasal cannula. He is currently receiving hemodialysis. Status post 1 unit of packed red blood cells this admission. Today's labs are pending. Bronchial wash cultures revealed no growth. No AFB. Blood sugar 175. He is continued on Levaquin. Remains on therapeutic Lovenox. Objective - Vital Signs Vital signs: Vital Signs Temp 98.4 F 02/03/23 07:06 Pulse 86 02/03/23 07:06 Resp 17 02/03/23 07:06 BP 97/57 02/03/23 07:06 Pulse Ox 95 02/03/23 10:24 FiO2 Intake & Output 02/02/23 02/03/23 02/03/23 18:59 06:59 18:59 Intake Total 118 Balance 118 Intake: Oral 118 Other: Voiding Method Diaper # Voids 0 # Bowel Movements 1 - Exam GENERAL EXAM: Alert, 62-year-old male, resting comfortably in bed, on 2 L nasal cannula, currently receiving hemodialysis, in no apparent distress. HEAD: Normocephalic. EYES: Normal reaction of pupils, equal size. NOSE: Clear with pink turbinates. THROAT: No erythema or exudates. NECK: No masses, no JVD. CHEST: No chest wall deformity. Hemodialysis catheter in place. LUNGS: Equal air entry with scattered rhonchi bilaterally left greater than right. CVS: S1 and S2 normal with no audible murmur, regular rhythm. ABDOMEN: No hepatosplenomegaly, normal bowel sounds, no guarding or rigidity. SPINE: No scoliosis or deformity SKIN: No rashes CENTRAL NERVOUS SYSTEM: No focal deficits, tone is normal in all 4 extremities. EXTREMITIES: There is no peripheral edema. No clubbing, no cyanosis. Peripheral pulses are intact. - Labs CBC & Chem 7: 02/02/23 06:55 02/02/23 07:01 Labs: Abnormal Lab Results - Last 24 Hours (Table) 02/02/23 02/02/23 02/02/23 Range/Units 12:01 16:23 20:09 POC Glucose (mg/dL) 154 H 203 H 140 H (70-110) mg/dL 02/03/23 Range/Units 05:54 POC Glucose (mg/dL) 175 H (70-110) mg/dL Microbiology - Last 24 Hours (Table) 02/01/23 13:30 Acid Fast Bacilli Smear - Preliminary Bronchoalviolar Lavage - Left 02/01/23 13:30 Gram Stain - Preliminary Bronchoalviolar Lavage - Left Assessment and Plan Assessment: Acute hypoxemic respiratory failure secondary to near complete opacification of the left lung. Ultrasound revealed no fluid. He did undergo bronchoscopy with BAL with large amounts of mucous plugs removed from the left mainstem bronchus 01/29/2023. Cultures revealed no growth. Cytology negative for malignancy. Viral culture positive for RSV. Pro-calcitonin 0.45. Initiated on Levaquin 500 mg every other day. Follow-up chest x-ray continues to show near complete opacification of the left lung with infiltrates in the right. Bronchoscopy from 02/01/2023 revealed evidence of a large blood clot in the left mainstem bronchus that was completely removed and airways appeared open. Follow-up chest x-ray continues to show opacification of the left lung. Respiratory syncytial virus found on bronchoscopy with BAL History of pleural effusions with previous thoracentesis most recently 3 weeks ago at [facility] and [place] End-stage renal disease receiving hemodialysis for approximately 3 years Acute anemia of suspected chronic disease and hemoglobin today 6.5, received 1 unit of packed red blood cells at current hemoglobin 9.3 History of CVA with left-sided weakness Left hip pain secondary to pressure ulcers, x-ray revealed no fracture or graft diabetes mellitus History of gastric esophageal reflux disease History of DVT History of spinal cord stimulator History of anxiety/depression snf resident, basically bedbound pressure ulcers Plan: The patient was seen and evaluated Medications reviewed Receiving hemodialysis today Continued on Levaquin 500 mg every other day Titrate the FiO2 as tolerated Plan is for [facility] upon discharge I have personally seen and examined the patient, performed the documentation and the assessment and plan as written. Number of minutes spent on the visit: 10.
--- NOTE | 2023-02-03 11:19 | P.PN ---
Subjective Patient is seen for follow-up for end-stage renal disease. Patient is seen on hemodialysis. Tolerating treatment well. Objective - Vital Signs Vital signs: Vital Signs Temp 98.4 F 02/03/23 07:06 Pulse 86 02/03/23 07:06 Resp 17 02/03/23 07:06 BP 97/57 02/03/23 07:06 Pulse Ox 95 02/03/23 10:24 FiO2 Intake & Output 02/02/23 02/03/23 02/03/23 18:59 06:59 18:59 Intake Total 118 Balance 118 Intake: Oral 118 Other: Voiding Method Diaper # Voids 0 # Bowel Movements 1 - Exam Patient is awake, comfortable, alert oriented 3. No acute distress Examination of lower extremity shows trace edema bilaterally. Patient has left hemiparesis. - Labs CBC & Chem 7: 02/02/23 06:55 02/02/23 07:01 Labs: Abnormal Lab Results - Last 24 Hours (Table) 02/02/23 02/02/23 02/02/23 Range/Units 12:01 16: 20:09 POC Glucose (mg/dL) 154 H 203 H 140 H (70-110) mg/dL 02/03/23 Range/Units 05:54 POC Glucose (mg/dL) 175 H (70-110) mg/dL Microbiology - Last 24 Hours (Table) 02/01/23 13:30 Acid Fast Bacilli Smear - Preliminary Bronchoalviolar Lavage - Left 02/01/23 13:30 Gram Stain - Preliminary Bronchoalviolar Lavage - Left Assessment and Plan Assessment: 1. End-stage renal disease on hemodialysis on a Sunday schedule via left IJ permacath. Patient dialyzes out of [place] 2. Volume overload my improved 3. Acute hypoxic respiratory failure secondary to volume overload and left lung opacification secondary to mucous plug. Status post bronchoscopy today with BAL with the removal of large amounts of mucous plug. RSV positive 4. Anemia of chronic disease , iron replete. Hemoglobin dropped to 6.5 g/dL today. 5. History of CVA with left hemiparesis 6. RSV infection with left lung collapse status post bronchoscopy and bronchoalveolar lavage 2 Plan: Continue [facility] Hemodialysis on a TTS schedule
[2023-02-03 11:57] LABS: Glucose,Whole Blood 136 mg/dL (70-110)
[2023-02-03] MEDS: LEVOFLOXACIN 500 MG TAB PO SCH (14:16)
[2023-02-03 16:19] LABS: Glucose,Whole Blood 198 mg/dL (70-110)
[2023-02-03 19:59] LABS: Glucose,Whole Blood 164 mg/dL (70-110)
[2023-02-03] MEDS: LEVOTHYROXINE 50 MCG TAB PO SCH (21:09)
[2023-02-03] MEDS: MELATONIN 5 MG TABLET PO SCH (21:09)
[2023-02-04] MEDS: hydrOXYzine HCL 25 MG TAB PO PRN ×2 (00:39→16:46)
[2023-02-04] MEDS: HYDROmorphone 1 MG/ML 1 ML SYRINGE IVP PRN ×6 (01:18→20:52)
[2023-02-04] MEDS: ONDANSETRON 4 MG/2 ML VIAL IVP PRN ×3 (02:08→16:39)
[2023-02-04] MEDS: ARTIFICIAL TEARS-HYPROMELLOSE DROPS 15 ML BTL BOTH EYES SCH ×3 (05:18→20:52)
[2023-02-04 05:36] LABS: Glucose,Whole Blood 185 mg/dL (70-110)
[2023-02-04 05:36] LABS: Glucose,Whole Blood 514 mg/dL (70-110)
[2023-02-04] MEDS: LACTATED RINGERS 1,000 ML IV SCH (06:16)
[2023-02-04] MEDS: INSULIN ASPART (NovoLOG) 100 UNIT/ML VIAL SQ SCH ×4 (06:45→21:03)
--- NOTE | 2023-02-04 07:56 | XR ---
EXAMINATION TYPE: XR chest 1V portable DATE OF EXAM: 02/04/2023 6:47 AM CLINICAL INDICATION:Male, 62 years old with history of Pneumonia COMPARISON: Chest radiograph from two days prior. TECHNIQUE: XR chest 1V portable Frontal view of the chest. FINDINGS: Lungs/Pleura: Improved aeration of the right lung. Large left pleural effusion with associated atelec tasis. Bilateral blunting of the right costophrenic angle. Pulmonary vascularity: Unremarkable. Heart/mediastinum: Cardiomediastinal silhouette is unremarkable. Musculoskeletal: No acute osseous pathology. There is fixation hardware in the lower cervical spine. Other findings: Vascular clip projects within the left axilla. Stimulation leads project over the spi ne. Lines/Tubes: Right internal jugular central venous catheter with distal tip at the cavoatrial junction. IMPRESSION: 1. Improved aeration right lung. 2. Large left and small right pleural effusions. 3. Right central venous catheter appropriate position.
--- NOTE | 2023-02-04 08:41 | PN ---
PROGRESS NOTE DATE OF SERVICE: 02/03/2023 SUBJECTIVE: This is a 62-year-old gentleman who was admitted with pleural effusion, also on hemodialysis. The patient complains of significant aches and pains. Also the most recent chest x-ray was reviewed personally by me showed significant pleural effusion on the left side and opacification. No chest pain. No palpitations. No fever. PAST MEDICAL HISTORY: Reviewed. REVIEW OF SYSTEMS: A 14-point review is negative except as mentioned. CURRENT MEDICATIONS: Reviewed include zyloprim, dose and rest of the medications noted. PHYSICAL EXAMINATION: VITAL SIGNS: Pulse 84, blood pressure 110/40, respirations 18. HEENT: Conjunctivae normal. NECK: No jugular venous distention. No carotid bruit. CARDIOVASCULAR: S1, S2 muffled. RESPIRATIONS: Bilateral scattered rhonchi and crackles. ABDOMEN: Soft. NERVOUS SYSTEM: No focal deficits. LABORATORY DATA: Hemoglobin 9.3, rest of the labs are noted. ASSESSMENT: 1. Left pleural effusion with complete opacification, status post bronchoscopy with BAL with mucus plugging. 2. Acute hypoxic respiratory failure. 3. RSV. 4. Chronic renal hemodialysis. 5. COPD noted. 6. CO2 exacerbation. 7. Gastroesophageal reflux disease. 8. Diabetes mellitus, type 2. 9. Severe pain. RECOMMENDATIONS: Recommended to continue current management, continue symptomatic treatment. Otherwise, symptomatic treatment. Closely follow with multiple consultants. Prognosis guarded. Further recommendations to follow. MMVIVEKL / ROSARION: [id number] /
[2023-02-04] MEDS: ALBUTEROL NEBULIZED 2.5 MG/3 ML INHALATION SCH ×4 (09:03→18:13)
[2023-02-04] MEDS: FOLIC ACID-VIT B COMPLEX-VIT C 1 CAP PO SCH (09:28)
[2023-02-04] MEDS: allopurinoL 100 MG TAB PO SCH (09:29)
[2023-02-04] MEDS: QUEtiapine 25 MG TAB PO SCH ×2 (09:29→20:51)
[2023-02-04] MEDS: SENNOSIDES-DOCUSATE SODIUM 1 EACH TAB PO SCH ×2 (09:29→20:51)
[2023-02-04] MEDS: LACTULOSE 20 GM/30 ML CUP PO SCH ×2 (09:29→20:51)
[2023-02-04] MEDS: ENOXAPARIN 100 MG/ML SYRINGE SQ SCH (09:29)
[2023-02-04] MEDS: MONTELUKAST 10 MG TAB PO SCH (09:29)
[2023-02-04] MEDS: FAMOTIDINE 20 MG/2 ML VIAL IV SCH ×2 (09:32→20:52)
[2023-02-04] MEDS: MENTHOL-ZINC OXIDE OINT 113 GM TUBE TOPICAL SCH ×2 (09:37→20:52)
--- NOTE | 2023-02-04 11:17 | P.PN ---
Subjective Progress Note Date: 02/04/23 This is a 62-year-old male patient with a known history of CVA with left-sided weakness, diabetes mellitus, chronic obstructive pulmonary disease, end-stage renal disease receiving hemodialysis, anxiety/depression, previous pleural effusions with thoracentesis most recently 3 weeks ago at [facility] in [place]. Yesterday he was seen at a outside hospital and chest x-ray revealed near complete opacification of the left lung. He was to be transferred to back to [facility] however no beds were available and he was transferred here. Chest x-ray reveals a large left and small right pleural effusion. Hemodialysis catheter in the right chest. White count 5.6. Hemoglobin 7.9. Platelets 241. Sodium 135. Potassium 3.6. Bicarb 30. BUN 9. Creatinine 1.83. Glucose 118. He is seen today in consultation on the regular medical floor. He is currently resting fairly comfortably in bed. Awake and alert in no acute distress. He is maintaining O2 saturations up to 100% on 5 L/m per nasal cannula. His been afebrile. Hemodynamically stable. He has been basically bedbound and is difficult to sit up. He has pressure ulcers as well. The patient is seen today 01/29/2023 in follow-up on the regular medical floor. He is resting comfortably in bed. Awake and alert in no acute distress. Maintaining O2 saturations up to 100% on 5 L/m per nasal cannula. He's been afebrile. Hemodynamically stable. Chest x-ray had revealed near complete white out of the left hemithorax. Ultrasound did not reveal any significant pleural effusion. He did undergo bronchoscopy with BAL with Dr. Oliver today. Large amount of mucous plug was removed from the left mainstem bronchus. Fluid analysis and cytology pending. Follow-up chest x-ray pending. He is continued on bronchodilators. The patient is seen today 01/30/2023 in follow-up on the regular medical floor. He is currently resting comfortably in bed. Awake and alert in no acute distress. Currently receiving hemodialysis. His chest x-ray showed some improvement in density of the left lung post bronchoscopy. Not a significant amount of improvement however. Bronchial wash cultures and cytology pending. Viral screen is positive for RSV. White count 5.9. Hemoglobin 7.0. Platelets 188. Sodium 135. Potassium 3.3. Bicarb 27. BUN 12. Creatinine 2.21. Glucose 126. He remains on bronchodilators. Lovenox for anticoagulation. The patient is seen today 01/31/2023 in follow-up on the regular medical floor. He is currently resting comfortably in bed. Maintaining O2 saturations up to 100% on 5 L/m per nasal cannula. He denies any worsening shortness of breath or congestion. His chest x-ray continues to show ongoing weight O and volume loss of the left hemithorax. Extensive consolidation throughout the right lung similar to slightly worsened. The plan will be for repeat bronchoscopy tomorrow. I count 5.1. Hemoglobin 6.5. Platelets 183. Sodium 136. Potassium 3.6. Bicarb 29. BUN 11. Creatinine 2.2. Glucose 157. He is continued on Levaquin. Continued on bronchodilators. Lovenox for anticoagulation. The patient is seen today 02/01/2023 in follow-up on the regular medical floor. He is awake and alert in no acute distress. He is maintaining O2 saturations again up to 100% on 5 L/m per nasal cannula. He is afebrile. Hemodynamically stable. Chest x-ray continues to show a large left complete opacification of left hemothorax. Ultrasound had revealed no fluid. He had undergone bronchoscopy with BAL and significant amount of secretions were removed with the plan is for repeat bronchoscopy today. Receiving hemodialysis today as well. He is status post 1 unit of packed red blood cells this admission. Count 4.1. Hemoglobin 8.8. Platelets 181. Sodium 135. Potassium 3.8. Bicarb 30. BUN 16. Creatinine 3.13. Glucose 102. He remains on antibiotics in the form of Levaquin. Continue bronchodilators. Therapeutic Lovenox. The patient is seen today 02/02/2023 in follow-up on the regular medical floor. He is awake and alert in no acute distress. Maintaining O2 saturations in the 90s on 4 L/m per nasal cannula. X-ray reveals large left and small right pleural effusions. Right central venous catheter in position. The patient has undergone 2 bronchoscopies with BAL's impressions this admission. Told she revealed no evidence of malignancy. The second bronchoscopy just revealed a large blood clot in the left mainstem bronchus which was removed completely. Bronchial cultures revealed no growth. They were positive for RSV. He is status post 1 unit of packed red blood cells this admission. Current hemoglobin 9.3. Platelets 142. White count 5.7. Sodium 135. Potassium 4.1 bicarb 28. BUN 15. Creatinine 2.42. Glucose 126. He had undergone hemodialysis yesterday with 2 L of ultrafiltration. Plan is to continue Sunday schedule. He remains on antibiotics in the form of Levaquin. Continued on bronchodilators. The patient is seen today 02/03/2023 in follow-up on the regular medical floor. He is currently resting comfortably in bed. Awake and alert in no acute distress. Maintaining O2 saturations in the 90s on 2 L/m per nasal cannula. He is currently receiving hemodialysis. Status post 1 unit of packed red blood cells this admission. Today's labs are pending. Bronchial wash cultures revealed no growth. No AFB. Blood sugar 175. He is continued on Levaquin. Remains on therapeutic Lovenox. The patient is seen today 02/04/2023 in follow-up on the regular medical floor. He continues to rest comfortably in bed. Awake and alert in no acute distress. Maintaining O2 saturations up to 100% on 2 L/m per nasal cannula. Chest x-ray is showing improved aeration in the right lung. Left pleural effusion remains. Central venous catheter in place. Bronchial wash cultures were positive for Nataliya only. Glucose 185. He received hemodialysis yesterday. 2.4 L of fluid removed. He remains on therapeutic Lovenox. Continued on bronchodilators, Singulair, Levaquin. Objective - Vital Signs Vital signs: Vital Signs Temp 98.5 F 02/04/23 08:00 Pulse 84 02/04/23 09:15 Resp 17 02/04/23 08:00 BP 142/73 02/04/23 08:00 Pulse Ox 100 02/04/23 09:05 FiO2 Intake & Output 02/03/23 02/04/23 02/04/23 18:59 06:59 18:59 Intake Total 400 Output Total 2400 Balance -1999 Intake: Hemodialysis 400 Output: Hemodialysis 2400 Other: Voiding Method Diaper Diaper Diaper # Voids 0 1 - Exam GENERAL EXAM: Alert, 62-year-old male, resting in bed, on 2 L nasal cannula, in no apparent distress. HEAD: Normocephalic. EYES: Normal reaction of pupils, equal size. NOSE: Clear with pink turbinates. THROAT: No erythema or exudates. NECK: No masses, no JVD. CHEST: No chest wall deformity. Hemodialysis catheter in place. LUNGS: Equal air entry with scattered rhonchi bilaterally left greater than right. CVS: S1 and S2 normal with no audible murmur, regular rhythm. ABDOMEN: No hepatosplenomegaly, normal bowel sounds, no guarding or rigidity. SPINE: No scoliosis or deformity SKIN: No rashes CENTRAL NERVOUS SYSTEM: No focal deficits, tone is normal in all 4 extremities. EXTREMITIES: There is no peripheral edema. No clubbing, no cyanosis. Peripher al pulses are intact. - Labs CBC & Chem 7: 02/02/23 06:55 02/02/23 07:01 Labs: Abnormal Lab Results - Last 24 Hours (Table) 02/01/23 02/03/23 02/03/23 Range/Units 13:30 11:55 16:16 POC Glucose (mg/dL) 136 H 198 H (70-110) mg/dL RSV (PCR) DETECTED A (Not detected) 02/03/23 02/04/23 02/04/23 Range/Units 19:57 05:30 05:33 POC Glucose (mg/dL) 164 H 514 H 185 H (70-110) mg/dL RSV (PCR) (Not detected) Microbiology - Last 24 Hours (Table) 02/01/23 13:30 Gram Stain - Final Bronchoalviolar Lavage - Left Bronchial Washings Culture - Final Nataliya albicans Assessment and Plan Assessment: Acute hypoxemic respiratory failure secondary to near complete opacification of the left lung. Ultrasound revealed no fluid. He did undergo bronchoscopy with BAL with large amounts of mucous plugs removed from the left mainstem bronchus 01/29/2023. Cultures revealed no growth. Cytology negative for malignancy. Viral culture positive for RSV. Pro-calcitonin 0.45. Initiated on Levaquin 500 mg every other day. Follow-up chest x-ray continues to show near complete opacification of the left lung with infiltrates in the right. Bronchoscopy from 02/01/2023 revealed evidence of a large blood clot in the left mainstem bronchus that was completely removed and airways appeared open. Cultures positive for Nataliya only. Follow-up chest x-ray continues to show opacification of the left lung. Respiratory syncytial virus found on bronchoscopy with BAL History of pleural effusions with previous thoracentesis most recently 3 weeks ago at [facility] and [place] End-stage renal disease receiving hemodialysis for approximately 3 years Acute anemia of suspected chronic disease and hemoglobin today 6.5, received 1 unit of packed red blood cells at current hemoglobin 9.3 History of CVA with left-sided weakness Left hip pain secondary to pressure ulcers, x-ray revealed no fracture or graft diabetes mellitus History of gastric esophageal reflux disease History of DVT History of spinal cord stimulator History of anxiety/depression pen[facility]iary resident, basically bedbound pressure ulcers Plan: The patient was seen and evaluated Medications reviewed Stable and on 2 L nasal cannula Remains on bronchodilators, Singulair Continued on Levaquin 500 mg every other day Remains on Lovenox Plan is for [facility] upon discharge I have personally seen and examined the patient, performed the documentation and the assessment and plan as written. Number of minutes spent on the visit: 10.
[2023-02-04 11:21] LABS: Glucose,Whole Blood 211 mg/dL (70-110)
--- NOTE | 2023-02-04 11:36 | P.PN ---
Subjective Patient is seen for follow-up for end-stage renal disease. Status post hemodialysis yesterday with UF of 2.4 L. No significant complaints today. Objective - Vital Signs Vital signs: Vital Signs Temp 98.5 F 02/04/23 08:00 Pulse 84 02/04/23 09:15 Resp 17 02/04/23 08:00 BP 142/73 02/04/23 08:00 Pulse Ox 100 02/04/23 09:05 FiO2 Intake & Output 02/03/23 02/04/23 02/04/23 18:59 06:59 18:59 Intake Total 400 Output Total 2400 Balance -1999 Intake: Hemodialysis 400 Output: Hemodialysis 2400 Other: Voiding Method Diaper Diaper Diaper # Voids 0 1 - Exam Patient is awake, comfortable, alert oriented 3. No acute distress Examination of lower extremity shows trace edema bilaterally. Patient has left hemiparesis. - Labs CBC & Chem 7: 02/02/23 06:55 02/02/23 07:01 Labs: Abnormal Lab Results - Last 24 Hours (Table) 02/03/23 02/03/23 02/03/23 Range/Units 11:55 16:16 19:57 POC Glucose (mg/dL) 136 H 198 H 164 H (70-110) mg/dL 02/04/23 02/04/23 02/04/23 Range/Units 05:30 05:33 11:19 POC Glucose (mg/dL) 514 H 185 H 211 H (70-110) mg/dL Microbiology - Last 24 Hours (Table) 02/01/23 13:30 Gram Stain - Final Bronchoalviolar Lavage - Left Bronchial Washings Culture - Final Nataliya albicans Assessment and Plan Assessment: 1. End-stage renal disease on hemodialysis on a Sunday schedule via left IJ permacath. Patient dialyzes out of [place] 2. Volume overload my improved 3. Acute hypoxic respiratory failure secondary to volume overload and left lung opacification secondary to mucous plug. Status post bronchoscopy today with BAL with the removal of large amounts of mucous plug. RSV positive 4. Anemia of chronic disease , iron replete. Hemoglobin dropped to 6.5 g/dL today. 5. History of CVA with left hemiparesis 6. RSV infection with left lung collapse status post bronchoscopy and bronchoalveolar lavage 2 Plan: Continue [facility] Hemodialysis on a TTS schedule
--- NOTE | 2023-02-04 12:44 | PN ---
PROGRESS NOTE DATE OF SERVICE: 02/04/2023 SUBJECTIVE: This 62-year-old gentleman admitted with pleural effusion, also had significant hypoxia given mobility. The most recent chest x-ray showed significant opacity on the left side. PAST MEDICAL HISTORY: Reviewed. REVIEW OF SYSTEMS: A 14-point review is negative except as mentioned earlier. MEDICATIONS: Current medications reviewed include bronchodilators. PHYSICAL EXAMINATION: VITAL SIGNS: Pulse is 88, blood pressure 140/72, respirations 17. CHEST: A few scattered rhonchi. ABDOMEN: Soft. NERVOUS SYSTEM: Nonfocal. LABORATORY DATA: Reviewed. ASSESSMENT: 1. Left pleural effusion with complete opacification, status post bronchoscopy with BAL with mucus plugging. 2. Acute hypoxic respiratory failure. 3. RSV. 4. Chronic renal hemodialysis. 5. Chronic obstructive pulmonary disease exacerbation. 6. Gastroesophageal reflux disease. 7. Diabetes mellitus, type 2. 8. Severe pain. RECOMMENDATIONS: Recommended to continue current management, continue symptomatic treatment, otherwise would recommend repeat labs. Continue with bronchodilators. Closely follow with Pulmonary. Prognosis extremely guarded because of multiple complex medical issues. Further recommendations to follow. MMODL / IJN: [id number] /
[2023-02-04] MEDS: DARBEPOETIN ALFA 60 MCG/0.3 ML SYRINGE SQ SCH (13:08)
[2023-02-04 16:59] LABS: Glucose,Whole Blood 140 mg/dL (70-110)
[2023-02-04] MEDS ORDERED: guaiFENesin SYRUP 100MG/5ML 200 MG/10 ML CUP PO PRN (17:48)
[2023-02-04] MEDS: MELATONIN 5 MG TABLET PO SCH (20:51)
[2023-02-04] MEDS: LEVOTHYROXINE 50 MCG TAB PO SCH (20:51)
[2023-02-04 21:02] LABS: Glucose,Whole Blood 190 mg/dL (70-110)
[2023-02-04] MEDS: ALBUTEROL NEBULIZED 2.5 MG/3 ML INHALATION PRN (21:25)
[2023-02-05] MEDS: HYDROmorphone 1 MG/ML 1 ML SYRINGE IVP PRN ×6 (00:55→21:20)
[2023-02-05] MEDS: ONDANSETRON 4 MG/2 ML VIAL IVP PRN ×2 (05:23→17:13)
[2023-02-05] MEDS: ARTIFICIAL TEARS-HYPROMELLOSE DROPS 15 ML BTL BOTH EYES SCH ×3 (05:24→21:07)
[2023-02-05] MEDS: INSULIN ASPART (NovoLOG) 100 UNIT/ML VIAL SQ SCH ×4 (06:11→21:01)
[2023-02-05 06:12] LABS: Glucose,Whole Blood 161 mg/dL (70-110)
[2023-02-05] MEDS: LACTATED RINGERS 1,000 ML IV SCH (06:35)
[2023-02-05 09:02] LABS: Basophils # (A) 0.03 X 10*3/uL (0.00-0.10); Basophils % (A) 0.5 %; Eosinophils # (A) 0.11 X 10*3/uL (0.04-0.35); Eosinophils % (A) 1.9 %; HCT 25.2 % (39.6-50.0); Lymphocytes # (A) 0.65 X 10*3/uL (0.90-5.00); Lymphocytes % (A) 11.4 %; MCH 30.4 pg (27.0-32.0); MCHC 31.7 g/dL (32.0-37.0); MCV 95.8 FL (80.0-97.0); Mean Platelet Volume 10.1 FL (9.5-12.2); Monocytes # (A) 0.44 X 10*3/uL (0.20-1.00); Monocytes % (A) 7.7 %; NRBC Per 100 WBC 0 X 10*3/uL (0.00-0.01); Neutrophils # (A) 4.42 X 10*3/uL (1.80-7.70); Neutrophils % (A) 77.6 %; Platelet Count 196 X 10*3/uL (140-440); RBC 2.63 X 10*6/uL (4.40-5.60); RDW 16.2 % (11.5-14.5)
[2023-02-05] MEDS: FAMOTIDINE 20 MG/2 ML VIAL IV SCH ×2 (09:08→21:05)
[2023-02-05] MEDS: ENOXAPARIN 100 MG/ML SYRINGE SQ SCH (09:08)
[2023-02-05] MEDS: SENNOSIDES-DOCUSATE SODIUM 1 EACH TAB PO SCH ×2 (09:09→21:06)
[2023-02-05] MEDS: MONTELUKAST 10 MG TAB PO SCH (09:09)
[2023-02-05] MEDS: allopurinoL 100 MG TAB PO SCH (09:09)
[2023-02-05] MEDS: FOLIC ACID-VIT B COMPLEX-VIT C 1 CAP PO SCH (09:09)
[2023-02-05] MEDS: QUEtiapine 25 MG TAB PO SCH ×2 (09:09→21:05)
[2023-02-05] MEDS: LACTULOSE 20 GM/30 ML CUP PO SCH ×2 (09:10→21:06)
[2023-02-05] MEDS: MENTHOL-ZINC OXIDE OINT 113 GM TUBE TOPICAL SCH ×2 (09:10→21:06)
[2023-02-05 09:16] LABS: ALT 37 U/L (10-49); AST 66 U/L (14-35); Albumin 2.8 g/dL (3.8-4.9); Alkaline Phosphatase 344 U/L (41-126); BUN/Creat Ratio 7.22 Ratio (12.00-20.00); Calcium 8.8 mg/dL (8.7-10.3); Carbon Dioxide 27.7 mmol/L (21.6-31.8); Chloride 101 mmol/L (96-109); Globulin 3.1 g/dL (1.6-3.3); Glucose 172 mg/dL (70-110); Sodium 138 mmol/L (135-145); Total Bilirubin 0.3 mg/dL (0.3-1.2); Total Protein 5.9 g/dL (6.2-8.2)
[2023-02-05] MEDS: ALBUTEROL NEBULIZED 2.5 MG/3 ML INHALATION SCH ×2 (09:17→12:39)
--- NOTE | 2023-02-05 11:22 | P.PN ---
Subjective Progress Note Date: 02/05/23 This is a 62-year-old male patient with a known history of CVA with left-sided weakness, diabetes mellitus, chronic obstructive pulmonary disease, end-stage renal disease receiving hemodialysis, anxiety/depression, previous pleural effusions with thoracentesis most recently 3 weeks ago at [facility] in [place]. Yesterday he was seen at a outside hospital and chest x-ray revealed near complete opacification of the left lung. He was to be transferred to back to [facility] however no beds were available and he was transferred here. Chest x-ray reveals a large left and small right pleural effusion. Hemodialysis catheter in the right chest. White count 5.6. Hemoglobin 7.9. Platelets 241. Sodium 135. Potassium 3.6. Bicarb 30. BUN 9. Creatinine 1.83. Glucose 118. He is seen today in consultation on the regular medical floor. He is currently resting fairly comfortably in bed. Awake and alert in no acute distress. He is maintaining O2 saturations up to 100% on 5 L/m per nasal cannula. His been afebrile. Hemodynamically stable. He has been basically bedbound and is difficult to sit up. He has pressure ulcers as well. The patient is seen today 01/29/2023 in follow-up on the regular medical floor. He is resting comfortably in bed. Awake and alert in no acute distress. Maintaining O2 saturations up to 100% on 5 L/m per nasal cannula. He's been afebrile. Hemodynamically stable. Chest x-ray had revealed near complete white out of the left hemithorax. Ultrasound did not reveal any significant pleural effusion. He did undergo bronchoscopy with BAL with Dr. Oliver today. Large amount of mucous plug was removed from the left mainstem bronchus. Fluid analysis and cytology pending. Follow-up chest x-ray pending. He is continued on bronchodilators. The patient is seen today 01/30/2023 in follow-up on the regular medical floor. He is currently resting comfortably in bed. Awake and alert in no acute distress. Currently receiving hemodialysis. His chest x-ray showed some improvement in density of the left lung post bronchoscopy. Not a significant amount of improvement however. Bronchial wash cultures and cytology pending. Viral screen is positive for RSV. White count 5.9. Hemoglobin 7.0. Platelets 188. Sodium 135. Potassium 3.3. Bicarb 27. BUN 12. Creatinine 2.21. Glucose 126. He remains on bronchodilators. Lovenox for anticoagulation. The patient is seen today 01/31/2023 in follow-up on the regular medical floor. He is currently resting comfortably in bed. Maintaining O2 saturations up to 100% on 5 L/m per nasal cannula. He denies any worsening shortness of breath or congestion. His chest x-ray continues to show ongoing weight O and volume loss of the left hemithorax. Extensive consolidation throughout the right lung similar to slightly worsened. The plan will be for repeat bronchoscopy tomorrow. I count 5.1. Hemoglobin 6.5. Platelets 183. Sodium 136. Potassium 3.6. Bicarb 29. BUN 11. Creatinine 2.2. Glucose 157. He is continued on Levaquin. Continued on bronchodilators. Lovenox for anticoagulation. The patient is seen today 02/01/2023 in follow-up on the regular medical floor. He is awake and alert in no acute distress. He is maintaining O2 saturations again up to 100% on 5 L/m per nasal cannula. He is afebrile. Hemodynamically stable. Chest x-ray continues to show a large left complete opacification of left hemothorax. Ultrasound had revealed no fluid. He had undergone bronchoscopy with BAL and significant amount of secretions were removed with the plan is for repeat bronchoscopy today. Receiving hemodialysis today as well. He is status post 1 unit of packed red blood cells this admission. Count 4.1. Hemoglobin 8.8. Platelets 181. Sodium 135. Potassium 3.8. Bicarb 30. BUN 16. Creatinine 3.13. Glucose 102. He remains on antibiotics in the form of Levaquin. Continue bronchodilators. Therapeutic Lovenox. The patient is seen today 02/02/2023 in follow-up on the regular medical floor. He is awake and alert in no acute distress. Maintaining O2 saturations in the 90s on 4 L/m per nasal cannula. X-ray reveals large left and small right pleural effusions. Right central venous catheter in position. The patient has undergone 2 bronchoscopies with BAL's impressions this admission. Told she revealed no evidence of malignancy. The second bronchoscopy just revealed a large blood clot in the left mainstem bronchus which was removed completely. Bronchial cultures revealed no growth. They were positive for RSV. He is status post 1 unit of packed red blood cells this admission. Current hemoglobin 9.3. Platelets 142. White count 5.7. Sodium 135. Potassium 4.1 bicarb 28. BUN 15. Creatinine 2.42. Glucose 126. He had undergone hemodialysis yesterday with 2 L of ultrafiltration. Plan is to continue Sunday schedule. He remains on antibiotics in the form of Levaquin. Continued on bronchodilators. The patient is seen today 02/03/2023 in follow-up on the regular medical floor. He is currently resting comfortably in bed. Awake and alert in no acute distress. Maintaining O2 saturations in the 90s on 2 L/m per nasal cannula. He is currently receiving hemodialysis. Status post 1 unit of packed red blood cells this admission. Today's labs are pending. Bronchial wash cultures revealed no growth. No AFB. Blood sugar 175. He is continued on Levaquin. Remains on therapeutic Lovenox. The patient is seen today 02/04/2023 in follow-up on the regular medical floor. He continues to rest comfortably in bed. Awake and alert in no acute distress. Maintaining O2 saturations up to 100% on 2 L/m per nasal cannula. Chest x-ray is showing improved aeration in the right lung. Left pleural effusion remains. Central venous catheter in place. Bronchial wash cultures were positive for Nataliya only. Glucose 185. He received hemodialysis yesterday. 2.4 L of fluid removed. He remains on therapeutic Lovenox. Continued on bronchodilators, Singulair, Levaquin. The patient is seen today 02/05/2023 in follow-up on the regular medical floor. He is currently resting in bed. Awake and alert in no acute distress. Maintaining O2 saturations up to 100% on 1 L/m per nasal cannula. He's afebrile. Hemodynamically stable. He is status post 1 unit of packed red blood cells this admission. Current hemoglobin 8.0. Platelets 196. White count 5.7. Sodium 138. Potassium 5.0. Bicarb 28. BUN 26. Creatinine 3.6. Glucose 172. Bronchial wash cultures reveal no growth. He is continued on Singulair and alb uterol. Lovenox for anticoagulation. Hemodialysis is a Sunday schedule. Objective - Vital Signs Vital signs: Vital Signs Temp 98.4 F 02/05/23 07:25 Pulse 86 02/05/23 09:30 Resp 17 02/05/23 09:10 BP 132/70 02/05/23 07:25 Pulse Ox 98 02/05/23 09:17 FiO2 Intake & Output 02/04/23 02/05/23 02/05/23 18:59 06:59 18:59 Intake Total 400 Balance 400 Intake: Oral 400 Other: Voiding Method Diaper Diaper Diaper # Voids 0 - Exam GENERAL EXAM: Alert, 62-year-old male, on 1 L nasal cannula, in no apparent distress. HEAD: Normocephalic. EYES: Normal reaction of pupils, equal size. NOSE: Clear with pink turbinates. THROAT: No erythema or exudates. NECK: No masses, no JVD. CHEST: No chest wall deformity. Hemodialysis catheter in place. LUNGS: Equal air entry with scattered rhonchi bilaterally left greater than right. CVS: S1 and S2 normal with no audible murmur, regular rhythm. ABDOMEN: No hepatosplenomegaly, normal bowel sounds, no guarding or rigidity. SPINE: No scoliosis or deformity SKIN: No rashes CENTRAL NERVOUS SYSTEM: No focal deficits, tone is normal in all 4 extremities. EXTREMITIES: There is no peripheral edema. No clubbing, no cyanosis. Peripheral pulses are intact. - Labs CBC & Chem 7: 02/05/23 04:42 02/05/23 04:42 Labs: Abnormal Lab Results - Last 24 Hours (Table) 02/04/23 02/04/23 02/04/23 Range/Units 11:19 16:57 21:01 RBC (4.40-5.60) X 10*6/uL Hgb (13.0-17.0) g/dL Hct (39.6-50.0) % MCHC (32.0-37.0) g/dL RDW (11.5-14.5) % Immature Gran # (0.00-0.04) X 10*3/uL Lymphocytes # (0.90-5.00) X 10*3/uL Creatinine (0.6-1.5) mg/dL Est GFR (CKD-EPI) (>=60) BUN/Creatinine Ratio (12.00-20.00) Ratio Glucose (70-110) mg/dL POC Glucose (mg/dL) 211 H 140 H 190 H (70-110) mg/dL AST (14-35) U/L Alkaline Phosphatase (41-126) U/L Total Protein (6.2-8.2) g/dL Albumin (3.8-4.9) g/dL Albumin/Globulin Ratio (1.60-3.17) Ratio 02/05/23 02/05/23 02/05/23 Range/Units 04:42 04:42 06:11 RBC 2.63 L (4.40-5.60) X 10*6/uL Hgb 8.0 L (13.0-17.0) g/dL Hct 25.2 L (39.6-50.0) % MCHC 31.7 L (32.0-37.0) g/dL RDW 16.2 H (11.5-14.5) % Immature Gran # 0.05 H (0.00-0.04) X 10*3/uL Lymphocytes # 0.65 L (0.90-5.00) X 10*3/uL Creatinine 3.6 H (0.6-1.5) mg/dL Est GFR (CKD-EPI) 18 L (>=60) BUN/Creatinine Ratio 7.22 L (12.00-20.00) Ratio Glucose 172 H (70-110) mg/dL POC Glucose (mg/dL) 161 H (70-110) mg/dL AST 66 H (14-35) U/L Alkaline Phosphatase 344 H (41-126) U/L Total Protein 5.9 L (6.2-8.2) g/dL Albumin 2.8 L (3.8-4.9) g/dL Albumin/Globulin Ratio 0.90 L (1.60-3.17) Ratio Microbiology - Last 24 Hours (Table) 02/01/23 13:30 Gram Stain - Final Bronchoalviolar Lavage - Left Bronchial Washings Culture - Final Nataliya albicans Assessment and Plan Assessment: Acute hypoxemic respiratory failure secondary to near complete opacification of the left lung. Ultrasound revealed no fluid. He did undergo bronchoscopy with BAL with large amounts of mucous plugs removed from the left mainstem bronchus 01/29/2023. Cultures revealed no growth. Cytology negative for malignancy. Viral culture positive for RSV. Pro-calcitonin 0.45. Initiated on Levaquin 500 mg every other day. Follow-up chest x-ray continues to show near complete opacification of the left lung with infiltrates in the right. Bronchoscopy from 02/01/2023 revealed evidence of a large blood clot in the left mainstem bronchus that was completely removed and airways appeared open. Cultures positive for Nataliya only. Follow-up chest x-ray continues to show opacification of the left lung. He is stable and on 1 L nasal cannula. Respiratory syncytial virus found on bronchoscopy with BAL History of pleural effusions with previous thoracentesis most recently 3 weeks ago at [facility] and [place] End-stage renal disease receiving hemodialysis for approximately 3 years Acute anemia of suspected chronic disease and hemoglobin today 6.5, received 1 unit of packed red blood cells at current hemoglobin 9.3 History of CVA with left-sided weakness Left hip pain secondary to pressure ulcers, x-ray revealed no fracture or graft diabetes mellitus History of gastric esophageal reflux disease History of DVT History of spinal cord stimulator History of anxiety/depression [facility] resident, basically bedbound pressure ulcers Plan: The patient was seen and evaluated Medications and labs reviewed Stable and on 1 L nasal cannula Continue the present treatment plan Nephrology is following as well Plan is for [facility] upon discharge This patient was seen independently by the pulmonary nurse practitioner I have personally seen and examined the patient, performed the documentation and the assessment and plan as written. Number of minutes spent on the visit: 22.
--- NOTE | 2023-02-05 11:46 | P.PN ---
Subjective Patient is seen for follow-up for end-stage renal disease. Complaining of pain in the chest area while coughing. Objective - Vital Signs Vital signs: Vital Signs Temp 98.4 F 02/05/23 07:25 Pulse 86 02/05/23 09:30 Resp 17 02/05/23 09:10 BP 132/70 02/05/23 07:25 Pulse Ox 98 02/05/23 09:17 FiO2 Intake & Output 02/04/23 02/05/23 02/05/23 18:59 06:59 18:59 Intake Total 400 Balance 400 Intake: Oral 400 Other: Voiding Method Diaper Diaper Diaper # Voids 0 - Exam Patient is awake, comfortable, alert oriented 3. No acute distress slight examination of the heart S1 and S2 Examination of the lungs shows decreased breath sounds at the bases Abdomen is soft nontender Examination of lower extremity shows trace edema bilaterally. Patient has left hemiparesis. - Labs CBC & Chem 7: 02/05/23 04:42 02/05/23 04:42 Labs: Abnormal Lab Results - Last 24 Hours (Table) 02/04/23 02/04/23 02/05/23 Range/Units 16:57 21:01 04:42 RBC 2.63 L (4.40-5.60) X 10*6/uL Hgb 8.0 L (13.0-17.0) g/dL Hct 25.2 L (39.6-50.0) % MCHC 31.7 L (32.0-37.0) g/dL RDW 16.2 H (11.5-14.5) % Immature Gran # 0.05 H (0.00-0.04) X 10*3/uL Lymphocytes # 0.65 L (0.90-5.00) X 10*3/uL Creatinine (0.6-1.5) mg/dL Est GFR (CKD-EPI) (>=60) BUN/Creatinine Ratio (12.00-20.00) Ratio Glucose (70-110) mg/dL POC Glucose (mg/dL) 140 H 190 H (70-110) mg/dL AST (14-35) U/L Alkaline Phosphatase (41-126) U/L Total Protein (6.2-8.2) g/dL Albumin (3.8-4.9) g/dL Albumin/Globulin Ratio (1.60-3.17) Ratio 02/05/23 02/05/23 Range/Units 04:42 06:11 RBC (4.40-5.60) X 10*6/uL Hgb (13.0-17.0) g/dL Hct (39.6-50.0) % MCHC (32.0-37.0) g/dL RDW (11.5-14.5) % Immature Gran # (0.00-0.04) X 10*3/uL Lymphocytes # (0.90-5.00) X 10*3/uL Creatinine 3.6 H (0.6-1.5) mg/dL Est GFR (CKD-EPI) 18 L (>=60) BUN/Creatinine Ratio 7.22 L (12.00-20.00) Ratio Glucose 172 H (70-110) mg/dL POC Glucose (mg/dL) 161 H (70-110) mg/dL AST 66 H (14-35) U/L Alkaline Phosphatase 344 H (41-126) U/L Total Protein 5.9 L (6.2-8.2) g/dL Albumin 2.8 L (3.8-4.9) g/dL Albumin/Globulin Ratio 0.90 L (1.60-3.17) Ratio Microbiology - Last 24 Hours (Table) 02/01/23 13:30 Gram Stain - Final Bronchoalviolar Lavage - Left Bronchial Washings Culture - Final Nataliya albicans Assessment and Plan Assessment: 1. End-stage renal disease on hemodialysis on a Sunday schedule via left IJ permacath. Patient dialyzes out of [place] 2. Volume overload my improved 3. Acute hypoxic respiratory failure secondary to volume overload and left lung opacification secondary to mucous plug. Status post bronchoscopy today with BAL with the removal of large amounts of mucous plug. RSV positive 4. Anemia of chronic disease , iron replete. Hemoglobin dropped to 6.5 g/dL today. 5. History of CVA with left hemiparesis 6. RSV infection with left lung collapse status post bronchoscopy and bronchoalveolar lavage 2 Plan: Continue [facility] Hemodialysis in a.m.
[2023-02-05 12:13] LABS: Glucose,Whole Blood 179 mg/dL (70-110)
[2023-02-05] MEDS: MAG HYDROX/AL HYDROX/SIMETH 30 ML CUP PO PRN (13:26)
[2023-02-05] MEDS: LEVOFLOXACIN 500 MG TAB PO SCH (13:27)
[2023-02-05] MEDS ORDERED: IPRATROPIUM-ALBUTEROL 3 ML NEB INHALATION PRN (13:42)
[2023-02-05] MEDS: BUDESONIDE 1 MG/2 ML NEBU INHALATION SCH ×2 (15:50→19:33)
[2023-02-05] MEDS: IPRATROPIUM-ALBUTEROL 3 ML NEB INHALATION SCH ×2 (15:55→19:34)
[2023-02-05 16:56] LABS: Glucose,Whole Blood 205 mg/dL (70-110)
[2023-02-05] MEDS ORDERED: NON FORMULARY DRUG (Ensure 1 CAN Ml) PO SCH (17:00)
[2023-02-05] MEDS: guaiFENesin SYRUP 100MG/5ML 200 MG/10 ML CUP PO PRN (18:40)
[2023-02-05 19:57] LABS: Glucose,Whole Blood 102 mg/dL (70-110)
--- NOTE | 2023-02-05 20:38 | PN ---
PROGRESS NOTE DATE OF SERVICE: 02/05/2023 SUBJECTIVE: This is a 62-year-old gentleman admitted with pleural effusion and collapse in the left side. He is hypoxic. The patient already had a bronchoscopy that showed some mucus plugs, but the left chest remains opacified and this was seen in the most recent x-ray. PAST MEDICAL HISTORY: Reviewed. REVIEW OF SYSTEMS: A 14-point review is negative except as mentioned earlier. CURRENT MEDICATIONS: Reviewed include Dulcolax and Ventolin. Rest of the medications reviewed. PHYSICAL EXAMINATION: VITAL SIGNS: Pulse is 86, blood pressure 132/70, respirations 20. CHEST: A few scattered rhonchi and crackles. Breath sounds diminished in the left side. ABDOMEN: Soft. NERVOUS SYSTEM: Nonfocal. LABORATORY DATA: Hemoglobin is 8 and creatinine is 3.6. LFTs are noted. ASSESSMENT: 1. Left-sided pleural effusion with possible atelectasis secondary to mucus plugging, status post bronchoscopy with BAL. 2. Acute hypoxic respiratory failure. 3. RSV. 4. Chronic renal failure, on hemodialysis. 5. Chronic obstructive pulmonary disease exacerbation. 6. Gastroesophageal reflux disease. 7. Diabetes mellitus, type 2. 8. Severe pain. RECOMMENDATIONS: Recommended to continue current management and continue symptomatic treatment. Otherwise, at this time, I recommend CT scan of the chest to complete the workup. Otherwise, we will repeat a chest x-ray. Continue with bronchodilators and Mucomyst. Guarded prognosis. Further recommendations to follow. MMODL / IJN: [id number] /
[2023-02-05] MEDS: MELATONIN 5 MG TABLET PO SCH (21:05)
[2023-02-05] MEDS: PANTOPRAZOLE SODIUM 40 MG GRANULE PKT PO SCH (21:06)
[2023-02-05] MEDS: LEVOTHYROXINE 50 MCG TAB PO SCH (21:54)
[2023-02-06] MEDS: ONDANSETRON 4 MG/2 ML VIAL IVP PRN ×3 (00:46→17:24)
[2023-02-06] MEDS: hydrOXYzine HCL 25 MG TAB PO PRN ×3 (00:46→17:58)
[2023-02-06] MEDS: HYDROmorphone 1 MG/ML 1 ML SYRINGE IVP PRN ×6 (01:23→21:52)
--- NOTE | 2023-02-06 02:47 | CT ---
EXAM: CT Chest Without Intravenous Contrast CLINICAL HISTORY: ITS.REASON CT Reason: left lung collapse TECHNIQUE: Axial computed tomography images of the chest without intravenous contrast. CTDI is 10 mGy and DLP is 350 mGy-cm. This CT exam was performed using one or more of the following dose reduction techniques: automated exposure control, adjustment of the mA and/or kV according to patient size, and/or use of iterative reconstruction technique. COMPARISON: No relevant prior studies available. FINDINGS: Lungs: Completely collapsed left lung. Mild pulmonary edema. Pleural space: No pneumothorax. Severe loculated left-sided pleural effusion. Severe right pleural effusion.. Heart: Normal heart size. No pericardial effusion. Bones/joints: No acute fracture. Soft tissues: Unremarkable. Vasculature: Unremarkable. No thoracic aortic aneurysm. Lymph nodes: No enlarged lymph nodes. Cirrhosis. Mild ascites. Anasarca. IMPRESSION: 1. Severe bilateral pleural effusions. Loculated on the left side. 2. Completely atelectatic left lung. 3. Decreased density of the blood pool suggestive of anemia. 4. Mild pulmonary edema. 5. Cirrhosis, anasarca and ascites.
[2023-02-06] MEDS: ACETAMINOPHEN TAB 325 MG TAB PO PRN ×2 (03:00→20:03)
[2023-02-06] MEDS: ARTIFICIAL TEARS-HYPROMELLOSE DROPS 15 ML BTL BOTH EYES SCH ×3 (05:19→20:06)
[2023-02-06 06:27] LABS: Glucose,Whole Blood 177 mg/dL (70-110)
--- NOTE | 2023-02-06 07:28 | XR ---
EXAMINATION TYPE: XR chest 1V portable DATE OF EXAM: 02/06/2023 5:46 AM CLINICAL INDICATION:Male, 62 years old with history of left atelectasis; COMPARISON: Chest radiographs from 02/04/2023. TECHNIQUE: XR chest 1V portable Frontal view of the chest. FINDINGS: Lungs/Pleura: Near complete opacification of the left hemithorax. There is interstitial edema involvi ng the right thorax. Blunting of the right costophrenic angle with associated atelectasis. Pulmonary vascularity: Right-sided pulmonary vascular congestion. Heart/mediastinum: Cardiomediastinal silhouette is obscured due to overlying and adjacent opacities. Musculoskeletal: No acute osseous pathology. There is fixation hardware in the lower cervical spine. Other findings: Nerve stimulator leads project over the spine. Vascular stent projects over the axill a. Lines/Tubes: Right internal jugular central venous catheter with distal tip at the cavoatrial junction. IMPRESSION: 1. Large left and small right with associated atelectasis. 2. Pulmonary edema. 3. Central catheter in appropriate position.
[2023-02-06] MEDS: BUDESONIDE 1 MG/2 ML NEBU INHALATION SCH ×2 (07:53→21:09)
[2023-02-06] MEDS: IPRATROPIUM-ALBUTEROL 3 ML NEB INHALATION SCH ×4 (07:53→21:09)
[2023-02-06] MEDS: LACTATED RINGERS 1,000 ML IV SCH (08:13)
[2023-02-06] MEDS: ENOXAPARIN 100 MG/ML SYRINGE SQ SCH (09:03)
[2023-02-06] MEDS: INSULIN ASPART (NovoLOG) 100 UNIT/ML VIAL SQ SCH ×4 (09:03→19:49)
[2023-02-06] MEDS: allopurinoL 100 MG TAB PO SCH (09:04)
[2023-02-06] MEDS: MONTELUKAST 10 MG TAB PO SCH (09:04)
[2023-02-06] MEDS: FOLIC ACID-VIT B COMPLEX-VIT C 1 CAP PO SCH (09:04)
[2023-02-06] MEDS: QUEtiapine 25 MG TAB PO SCH ×2 (09:04→20:02)
[2023-02-06] MEDS: LACTULOSE 20 GM/30 ML CUP PO SCH ×2 (09:04→20:02)
[2023-02-06] MEDS: SENNOSIDES-DOCUSATE SODIUM 1 EACH TAB PO SCH ×2 (09:05→20:05)
[2023-02-06] MEDS: MENTHOL-ZINC OXIDE OINT 113 GM TUBE TOPICAL SCH ×2 (09:05→20:06)
[2023-02-06] MEDS: FAMOTIDINE 20 MG/2 ML VIAL IV SCH ×2 (09:05→20:05)
[2023-02-06] MEDS: PANTOPRAZOLE SODIUM 40 MG GRANULE PKT PO SCH ×2 (09:06→20:00)
[2023-02-06 10:03] LABS: Nucleated Cells, Body Fluid 75 /UL
[2023-02-06 11:51] LABS: Glucose,Whole Blood 123 mg/dL (70-110)
--- NOTE | 2023-02-06 12:35 | P.PN ---
Subjective Patient is seen for follow-up for end-stage renal disease. Complaining of pain in the chest area while coughing. Objective - Vital Signs Vital signs: Vital Signs Temp 98.2 F 02/06/23 07:10 Pulse 94 02/06/23 11:48 Resp 20 02/06/23 07:10 BP 126/76 02/06/23 07:10 Pulse Ox 100 02/06/23 07:56 FiO2 Intake & Output 02/05/23 02/06/23 02/06/23 18:59 06:59 18:59 Intake Total 500 Balance 500 Intake: Oral 500 Other: Voiding Method Diaper Diaper Diaper # Voids 0 # Bowel Movements 1 - Exam Patient is awake, comfortable, alert oriented 3. No acute distress slight examination of the heart S1 and S2 Examination of the lungs shows decreased breath sounds at the bases Abdomen is soft nontender Examination of lower extremity shows trace edema bilaterally. Patient has left hemiparesis. - Labs CBC & Chem 7: 02/05/23 04:42 02/05/23 04:42 Labs: Abnormal Lab Results - Last 24 Hours (Table) 02/01/23 02/05/23 02/06/23 Range/Units 13:30 16:55 06:25 POC Glucose (mg/dL) 205 H 177 H (70-110) mg/dL Fluid RBC 37436 H (0-2000) /uL 02/06/23 Range/Units 11:37 POC Glucose (mg/dL) 123 H (70-110) mg/dL Fluid RBC (0-2000) /uL Microbiology - Last 24 Hours (Table) 02/01/23 13:30 Acid Fast Bacilli Smear - Preliminary Bronchoalviolar Lavage - Left 02/01/23 13:30 Gram Stain - Final Bronchoalviolar Lavage - Left Bronchial Washings Culture - Final Nataliya albicans Assessment and Plan Assessment: 1. End-stage renal disease on hemodialysis on a Sunday schedule via left IJ permacath. Patient dialyzes out of [place] 2. Volume overload my improved 3. Acute hypoxic respiratory failure secondary to volume overload and left lung opacification secondary to mucous plug. Status post bronchoscopy today with BAL with the removal of large amounts of mucous plug. RSV positive 4. Anemia of chronic disease , iron replete. Hemoglobin dropped to 6.5 g/dL today. 5. History of CVA with left hemiparesis 6. RSV infection with left lung collapse status post bronchoscopy and bronchoalveolar lavage 2 Plan: Hemodialysis in a.m. with goal UF 1-2 L as tolerated.
[2023-02-06] MEDS: MIDODRINE 5 MG TAB PO PRN (13:08)
[2023-02-06] MEDS: guaiFENesin SYRUP 100MG/5ML 200 MG/10 ML CUP PO PRN ×2 (13:10→21:51)
--- NOTE | 2023-02-06 13:27 | US ---
EXAMINATION TYPE: US chest DATE OF EXAM: 02/06/2023 COMPARISON: Radiograph same day CLINICAL INDICATION: Male, 62 years old with history of bilateral chest, pleural effusion, poss thora centesis; TECHNIQUE: Targeted ultrasound of the posterior lower bilateral hemithoraces; Patient scanned in LLD - potential inaccurate marking EXAM MEASUREMENTS: Right Pleural Effusion pocket size: 0 cm Right skin surface to fluid distance: 0 cm Left Pleural Effusion pocket size: 3.2 cm Left skin surface to fluid distance: 6.1 cm Left side marked for possible thoracentesis outside the dept. Pulmonologists are able to review the images in the patient?s EMR. IMPRESSIONS: Relatively small appearance to the patient's left pleural effusion by ultrasound. No effusion identif ied on the right by ultrasound.
--- NOTE | 2023-02-06 14:05 | P.PN ---
Subjective Progress Note Date: 02/06/23 This is a pleasant 62 years old male with past medical history of end-stage renal disease on hemodialysis for the last 3 years, COPD, CVA/TIA, diabetes mellitus, GERD, basal cell carcinoma, cervical radiculopathy, chronic low back pain, chronic neck pain, CVA with deficit to the left side, peripheral vascular disease, DVT, dysphagia, fatty liver, foot drop, gastritis,,, gout Patient presents from [facility] for shortness of breath, patient says that she's been having this shortness of breath for 2 weeks on and off associated with cough and yellowish phlegm Patient says that he has left-sided pain and cleared his neck chest abdomen and left hip. He says that he takes Dilaudid 4 mg every 4 hours as needed. He says that he tolerates diet well and he has regular bowel movement this morning No new headache dizziness and weakness or numbness. Hemodynamically he is a stable Hemoglobin 7.9, creatinine 1.8. Baseline creatinine is unknown. 01/29/2023 Patient is seen in follow-up today reporting nausea and anti-nausea medications being ordered. Patient being followed by nephrology along with pulmonary and scheduled to undergo dialysis today as well as resuming tomorrow to keep on schedule of Sunday//Sunday. Patient received dialysis out of [facility] and has been residing at an [facility]. Case management following and patient will be returning there on stabilized and discharge. Patient scheduled to undergo bronchoscopy with BAL today which is currently pending. Recommend frequent position changes and offloading of the left hip although per nursing staff patient has been refusing. Patient continued on 4 L nasal cannula and recommended wean FiO2 as tolerated. Patient is currently afebrile with no reported chest pain or palpitations. Patient continues to report shortness of breath. 01/30/2023 Patient is seen in follow-up this morning lethargic although arousable currently undergoing hemodialysis with nephrology following closely. Potassium is low today at 3.0 will be replaced per protocol. Hemoglobin is 7.0 and will follow- up in monitor and transfuse if less than 7. Patient with pulmonary following and is status post bronchoscopy with BAL and being started on antibiotics as patient had complete opacification patient with obstruction of the left bronchus on bronchoscopy with significant mucous plugs suctioned. Patient to have follow-up chest x-ray in the a.m. and will decide further if repeat bronchoscopy on as needed. Patient is currently afebrile and extremely lethargic with significant weakness. Patient will need to work with physical therapy for updated notes is patient plans on returning to [facility]. 01/31/2023 Patient seen in follow-up this morning currently sleeping although arousable. Patient hemoglobin 6.5 and will give a unit of PRBCs and is scheduled for hemodialysis tomorrow with nephrology following closely. Pulmonary following as well as patient is maintained on 5 L of oxygen via nasal cannula and underwent bronchoscopy although x-ray continues to show near complete opacification of the left lung is scheduled to undergo bronchoscopy again on . Patient has been encouraged to get up and sit up in the chair and work with physical therapy. Patient reports he has been working with physical therapy although minimally and patient is sleeping throughout most of the day and per nursing staff has been refusing to position change. Patient encouraged to cough and deep breathe and use incentive spirometer and has not been doing so. Patient reports his diet is fair although appears to be suboptimal. Patient is afebrile and maintained on Levaquin. Prognosis is guarded. CODE STATUS was discussed as patient is alert and oriented and patient wishes to remain full code 02/01/2023 Patient is seen in follow-up this morning scheduled to undergo repeat bronchoscopy with pulmonary. Patient receiving hemodialysis today and will continue with nephrology following closely. Patient continues on 5 L via nasal cannula continues to report shortness of breath and [id number] patient on the left remains on x-ray imaging. Patient continues to be extremely weak and has been doing minimally with physical therapy and have encouraged increase activity as tolerated. Patient continues to report pain and chronically uses Dilaudid in the outpatient setting. Hemoglobin is improved after 1 unit of PRBC and is 8.8 today. Occasional hemoptysis with no significant bleeding noted. Patient is afebrile and continues on Levaquin every other day. 02/02/2023 Patient is seen in follow-up today currently continued on 5 L and reports he chronically wears this outpatient. Patient maintained on T //Sunday hemodialysis schedule and will continue. Patient with significant weakness and continues to report pain and pain with coughing of the left side and is status post bronchoscopy 2 with BAL. Follow-up chest x-ray today shows large left and small right pleural effusion. Patient is continued on breathing treatments in the form of albuterol and will continue. Patient work with physical therapy and awaiting updated notes to submit to insurance for authorization for patient to return to [facility]. Case management following and has submitted which is currently pending. Patient is afebrile with no reports of worsening shortness of breath. Patient denies any chest pain. Patient reports he chronically takes oral Dilaudid at home and has been having continued pain. Will adjust the dose slightly and encouraged the patient to increase activity as tolerated. Patient has not been getting out much and has been refusing position changes to offload on that left hip. Continue with local wound care as well. 02/06/2023 Patient is seen in follow-up today being followed by pulmonary along with nephrology. Patient is maintained on Sunday//Sunday hemodialysis and scheduled to receive dialysis today. Patient continues to be hypoxic although maintained on his chronic 5 L via nasal cannula. Patient is status post bronchoscopy 2 with pulmonary following and will obtain chest ultrasound to discuss possible thoracentesis on the left. Patient continues with significant amount of opacification is noted on the left and continued shortness of breath. Patient was encouraged to use incentive spirometer and get up and work with physical therapy although is almost max assist. Patient is resistant to working with physical therapy reporting his pain is too severe. Patient is taking Dilaudid IV and chronically takes oral Dilaudid outpatient. Encouraged increase activity as tolerated. Will obtain chest ultrasound and discuss further with pulmonary about possible thoracentesis. Review of systems: Constitutional: no reports of fatigue, no fever, or chills Cardiovascular: No reports of chest pain or palpitations Respiratory: reports of continued shortness of breath but no worse , reports coughing GI: No reports of nausea and vomiting, no diarrhea : No reports of dysuria or retention, maintained on dialysis Neurovascular: reports of weakness or numbness All medications have been reviewed Physical exam: GENERAL: The patient ismore awake today, alert and oriented x3. appears much older than stated age, ill appearing Well developed, well nourished. Obese HEENT: Pupils are round and equally reacting to light. EOMI. No scleral icterus. No conjunctival pallor. Normocephalic, atraumatic. No pharyngeal erythema. No thyromegaly. CARDIOVASCULAR: S1 and S2 muffled PULMONARY: Diminished breath sounds bilaterally worse on the left with some crackles noted at the bases, weak inspiration ABDOMEN: Soft, nontender, nondistended, normoactive bowel sounds. No palpable organomegaly. MUSCULOSKELETAL: No joint swelling or deformity. EXTREMITIES: No cyanosis, clubbing, or pedal edema. NEUROLOGICAL: Gross neurological examination did not reveal any focal deficits. Generalized edema of upper and lower extremities SKIN: No rashes. no petechiae. Pale Assessment: Left pleural effusion, almost complete opacification, status post bronchoscopy with BAL x2 times this admission with mucus obstruction of the bronchus on the left Acute on chronic hypoxic respiratory failure secondary to above RSV positive Ongoing left side arthritis pain, likely chronic Chronic pain syndrome on oral Dilaudid at home 4 milligrams every 4 hours end-stage renal disease on hemodialysis for the last 3 years, Maintained on Sunday//Sunday COPD, acute exacerbation Anemia of chronic disease, status post 1 unit of PRBCs, Improved History of CVA/TIA with left hemiparesis diabetes mellitus GERD History of basal cell carcinoma cervical radiculopathy chronic low back pain chronic neck pain peripheral vascular disease History of DVT dysphagia History of fatty liver History of foot drop History of gastritis History of gout Obesity with a BMI 34.0 GI prophylaxis DVT prophylaxis Full code Plan: Continue with supplemental oxygen with pulmonary following and as undergone bronchoscopy with BAL2 as patient continues to have near opacification of the left lung. Patient continues on Levaquin per pulmonary along with breathing treatments as well as 5 L of oxygen via nasal cannula. Patient reports he wears oxygen outpatient on 5 L . Chest ultrasound ordered to evaluate for pleural effusion size with possible thoracentesis. This was discussed with pulmonary and he will further assess after reviewing the ultrasound. Chest x-ray today continues to show large left and small right effusion with associated atelectasis, pulmonary edema on chest CT from yesterday showed severe bilateral pleural effusions with a loculated left side with a completely atelectatic left lung, decreased density of the blood pool suggestive of anemia with mild pulmonary edema and cirrhosis along with anasarca and ascites also noted Nephrology following this patient is end-stage renal disease maintained on dialysis Sunday//Sunday and scheduled to receive dialysis today Patient reported significant 10/10 pain and chronically uses oral Dilaudid outpatient. Medication adjustments made and patient asking for muscle rub Will discuss further with case management/social work regarding discharge planning once patient is cleared by consultations. Patient has received insurance authorization as patient will be returning to [facility] on discharge in [place]. Recommend working with physical therapy/occupational therapy daily . Will discuss further with case management on how long the insurance authorization was good for. Due to multiple complex medical issues, prognosis is guarded CODE STATUS was addressed and patient wishes to remain full code The impression and plan of care has been dictated by Keila Hurst, Nurse Practitioner as directed. Dr. Jose MD I have performed a history and examination and MDM of this patient, discussed the same with the dictator, and agree with the dictator's assessment and plan as written ,documented as a scribe. Based on total visit time, I have performed more than 50% of the visit. Objective - Vital Signs Vital signs: Vital Signs Temp 98.2 F 02/06/23 07:10 Pulse 94 02/06/23 11:48 Resp 20 02/06/23 07:10 BP 126/76 02/06/23 07:10 Pulse Ox 100 02/06/23 07:56 FiO2 Intake & Output 02/05/23 02/06/23 02/06/23 18:59 06:59 18:59 Intake Total 500 Balance 500 Intake: Oral 500 Other: Voiding Method Diaper Diaper Diaper # Voids 0 # Bowel Movements 1 - Labs CBC & Chem 7: 02/05/23 04:42 02/05/23 04:42 Labs: Abnormal Lab Results - Last 24 Hours (Table) 02/01/23 02/05/23 02/06/23 Range/Units 13:30 16:55 06:25 POC Glucose (mg/dL) 205 H 177 H (70-110) mg/dL Fluid RBC 71742 H (0-2000) /uL 02/06/23 Range/Units 11:37 POC Glucose (mg/dL) 123 H (70-110) mg/dL Fluid RBC (0-2000) /uL Microbiology - Last 24 Hours (Table) 02/01/23 13:30 Acid Fast Bacilli Smear - Preliminary Bronchoalviolar Lavage - Left 02/01/23 13:30 Gram Stain - Final Bronchoalviolar Lavage - Left Bronchial Washings Culture - Final Nataliya albicans
[2023-02-06 16:15] LABS: Glucose,Whole Blood 133 mg/dL (70-110)
[2023-02-06] MEDS: MAG HYDROX/AL HYDROX/SIMETH 30 ML CUP PO PRN (18:00)
--- NOTE | 2023-02-06 19:27 | P.PN ---
Subjective Progress Note Date: 02/06/23 This is a 62-year-old male patient with a known history of CVA with left-sided weakness, diabetes mellitus, chronic obstructive pulmonary disease, end-stage renal disease receiving hemodialysis, anxiety/depression, previous pleural effusions with thoracentesis most recently 3 weeks ago at [facility] in [place]. Yesterday he was seen at a outside hospital and chest x-ray revealed near complete opacification of the left lung. He was to be transferred to back to [facility] however no beds were available and he was transferred here. Chest x-ray reveals a large left and small right pleural effusion. Hemodialysis catheter in the right chest. White count 5.6. Hemoglobin 7.9. Platelets 241. Sodium 135. Potassium 3.6. Bicarb 30. BUN 9. Creatinine 1.83. Glucose 118. He is seen today in consultation on the regular medical floor. He is currently resting fairly comfortably in bed. Awake and alert in no acute distress. He is maintaining O2 saturations up to 100% on 5 L/m per nasal cannula. His been afebrile. Hemodynamically stable. He has been basically bedbound and is difficult to sit up. He has pressure ulcers as well. The patient is seen today 01/29/2023 in follow-up on the regular medical floor. He is resting comfortably in bed. Awake and alert in no acute distress. Maintaining O2 saturations up to 100% on 5 L/m per nasal cannula. He's been afebrile. Hemodynamically stable. Chest x-ray had revealed near complete white out of the left hemithorax. Ultrasound did not reveal any significant pleural effusion. He did undergo bronchoscopy with BAL with Dr. Oliver today. Large amount of mucous plug was removed from the left mainstem bronchus. Fluid analysis and cytology pending. Follow-up chest x-ray pending. He is continued on bronchodilators. The patient is seen today 01/30/2023 in follow-up on the regular medical floor. He is currently resting comfortably in bed. Awake and alert in no acute distress. Currently receiving hemodialysis. His chest x-ray showed some improvement in density of the left lung post bronchoscopy. Not a significant am ount of improvement however. Bronchial wash cultures and cytology pending. Viral screen is positive for RSV. White count 5.9. Hemoglobin 7.0. Platelets 188. Sodium 135. Potassium 3.3. Bicarb 27. BUN 12. Creatinine 2.21. Glucose 126. He remains on bronchodilators. Lovenox for anticoagulation. The patient is seen today 01/31/2023 in follow-up on the regular medical floor. He is currently resting comfortably in bed. Maintaining O2 saturations up to 100% on 5 L/m per nasal cannula. He denies any worsening shortness of breath or congestion. His chest x-ray continues to show ongoing weight O and volume loss of the left hemithorax. Extensive consolidation throughout the right lung similar to slightly worsened. The plan will be for repeat bronchoscopy tomorrow. I count 5.1. Hemoglobin 6.5. Platelets 183. Sodium 136. Potassium 3.6. Bicarb 29. BUN 11. Creatinine 2.2. Glucose 157. He is continued on Levaquin. Continued on bronchodilators. Lovenox for anticoagulation. The patient is seen today 02/01/2023 in follow-up on the regular medical floor. He is awake and alert in no acute distress. He is maintaining O2 saturations again up to 100% on 5 L/m per nasal cannula. He is afebrile. Hemodynamically stable. Chest x-ray continues to show a large left complete opacification of left hemothorax. Ultrasound had revealed no fluid. He had undergone bronchosco py with BAL and significant amount of secretions were removed with the plan is for repeat bronchoscopy today. Receiving hemodialysis today as well. He is status post 1 unit of packed red blood cells this admission. Count 4.1. Hemoglobin 8.8. Platelets 181. Sodium 135. Potassium 3.8. Bicarb 30. BUN 16. Creatinine 3.13. Glucose 102. He remains on antibiotics in the form of Levaquin. Continue bronchodilators. Therapeutic Lovenox. The patient is seen today 02/02/2023 in follow-up on the regular medical floor. He is awake and alert in no acute distress. Maintaining O2 saturations in the 90s on 4 L/m per nasal cannula. X-ray reveals large left and small right pleural effusions. Right central venous catheter in position. The patient has undergone 2 bronchoscopies with BAL's impressions this admission. Told she revealed no evidence of malignancy. The second bronchoscopy just revealed a large blood clot in the left mainstem bronchus which was removed completely. Bronchial cultures revealed no growth. They were positive for RSV. He is status post 1 unit of packed red blood cells this admission. Current hemoglobin 9.3. Platelets 142. White count 5.7. Sodium 135. Potassium 4.1 bicarb 28. BUN 15. Creatinine 2.42. Glucose 126. He had undergone hemodialysis yesterday with 2 L of ultrafiltration. Plan is to continue Sunday schedule. He remains on antibiotics in the form of Levaquin. Continued on bronchodilators. The patient is seen today 02/03/2023 in follow-up on the regular medical floor. He is currently resting comfortably in bed. Awake and alert in no acute distress. Maintaining O2 saturations in the 90s on 2 L/m per nasal cannula. He is currently receiving hemodialysis. Status post 1 unit of packed red blood cells this admission. Today's labs are pending. Bronchial wash cultures revealed no growth. No AFB. Blood sugar 175. He is continued on Levaquin. Remains on therapeutic Lovenox. The patient is seen today 02/04/2023 in follow-up on the regular medical floor. He continues to rest comfortably in bed. Awake and alert in no acute distress. Maintaining O2 saturations up to 100% on 2 L/m per nasal cannula. Chest x-ray is showing improved aeration in the right lung. Left pleural effusion remains. Central venous catheter in place. Bronchial wash cultures were positive for Nataliya only. Glucose 185. He received hemodialysis yesterday. 2.4 L of fluid removed. He remains on therapeutic Lovenox. Continued on bronchodilators, Singulair, Levaquin. On today's evaluation of 02/06/2023, the patient is being seen for a follow-up. The patient is resting comfortably in bed and the patient is undergoing hemodialysis with a goal of 2 L of ultrafiltration. The patient has dialysis dependent renal failure. Is currently on oxygen 2 L/m nasal cannula. I reviewed the chest x-ray and I also reviewed the CAT scan of the chest pain noted the patient has undergone 2 bronchoscopies, cultures are negative for any bacterial growth. He was positive for Nataliya. The patient was unable to achieve expansion of the left lung. Based on the CAT scan of the chest, the patient has bilateral pleural effusion. The effusion on the left is somewhat chronic and there is a pleural thickening around the pleural fluid indicating a chronic effusion. There is complete atelectasis of the left lung. Suspect the left lung being trapped. There is also mild pulmonary vessel congestion and changes related to liver cirrhosis. Despite the complete atelectasis of the left lung, the patient is not having any mediastinal distress at rest. The white cell count of 5.7, hemoglobin was at 8, BUN is at 26 and a creatinine of 3.6 and his sodium level is at 138 with a potassium level of 5.0. Noted the patient has multiple medical problems and comorbidities. The patient has COPD with end-stage renal disease on hemodialysis, he has undergone previous thoracentesis approxim he is on bronchodilators with DuoNeb, is also on Pulmicort Respules, no antibiotic coverage for the time being. ately 3 weeks ago at another hospital. The pleural effusion on the left is likely chronic. The right sided pleural fluid is more of a free-flowing. Is also known to have CVA with left-sided weakness and is quite debilitated and bedridden. He is bedbound. Objective - Vital Signs Vital signs: Vital Signs Temp 98.2 F 02/06/23 07:10 Pulse 94 02/06/23 11:48 Resp 20 02/06/23 07:10 BP 116/56 02/06/23 13:07 Pulse Ox 100 02/06/23 07:56 FiO2 Intake & Output 02/05/23 02/06/23 02/06/23 18:59 06:59 18:59 Intake Total 500 Balance 500 Intake: Oral 500 Other: Voiding Method Diaper Diaper Diaper # Voids 0 # Bowel Movements 1 - Exam GENERAL EXAM: Alert, 62-year-old male, on 2 L nasal cannula, in no apparent distress. HEAD: Normocephalic. EYES: Normal reaction of pupils, equal size. NOSE: Clear with pink turbinates. THROAT: No erythema or exudates. NECK: No masses, no JVD. CHEST: No chest wall deformity. Hemodialysis catheter in place. LUNGS: Equal air entry with scattered rhonchi bilaterally left greater than right. CVS: S1 and S2 normal with no audible murmur, regular rhythm. ABDOMEN: No hepatosplenomegaly, normal bowel sounds, no guarding or rigidity. SPINE: No scoliosis or deformity SKIN: No rashes CENTRAL NERVOUS SYSTEM: No focal deficits, tone is normal in all 4 extremities. EXTREMITIES: There is no peripheral edema. No clubbing, no cyanosis. Peripheral pulses are intact. - Labs CBC & Chem 7: 02/05/23 04:42 02/05/23 04:42 Labs: Abnormal Lab Results - Last 24 Hours (Table) 02/01/23 02/05/23 02/06/23 Range/Units 13:30 16:55 06:25 POC Glucose (mg/dL) 205 H 177 H (70-110) mg/dL Fluid RBC 87126 H (0-2000) /uL 02/06/23 Range/Units 11:37 POC Glucose (mg/dL) 123 H (70-110) mg/dL Fluid RBC (0-2000) /uL Microbiology - Last 24 Hours (Table) 02/01/23 13:30 Acid Fast Bacilli Smear - Preliminary Bronchoalviolar Lavage - Left 02/01/23 13:30 Gram Stain - Final Bronchoalviolar Lavage - Left Bronchial Washings Culture - Final Nataliya albicans Assessment and Plan Plan: Acute hypoxemic respiratory failure secondary to near complete opacification of the left lung. Ultrasound revealed no fluid. He did undergo bronchoscopy with BAL with large amounts of mucous plugs removed from the left mainstem bronchus 01/29/2023. Cultures revealed no growth. Cytology negative for malignancy. Viral culture positive for RSV. Pro-calcitonin 0.45. Initiated on Levaquin 500 mg every other day. Follow-up chest x-ray continues to show near complete opacification of the left lung with infiltrates in the right. Bronchoscopy from 02/01/2023 revealed evidence of a large blood clot in the left mainstem bronchus that was completely removed and airways appeared open. Cultures positive for Nataliya only. Follow-up chest x-ray continues to show opacification of the left lung. As such, it is likely due to the left lung is trapped. The patient undergone bronchoscopy that was essentially nonsuccessful 2. As for the left- sided pleural fluid, this has a thick pleural marking/lining and this indicates a chronic left-sided pleural effusion probably related to chronic pleuritis. Respiratory syncytial virus found on bronchoscopy with BAL History of pleural effusions with previous thoracentesis most recently 3 weeks ago at [facility] and [place] End-stage renal disease receiving hemodialysis for approximately 3 years Acute anemia of suspected chronic disease and hemoglobin today 6.5, received 1 unit of packed red blood cells at current hemoglobin 9.3 History of CVA with left-sided weakness Left hip pain secondary to pressure ulcers, x-ray revealed no fracture or graft diabetes mellitus History of gastric esophageal reflux disease History of DVT History of spinal cord stimulator History of anxiety/depression detention resident, basically bedbound pressure ulcers Plan: Continue hemodialysis May consider draining the right-sided pleural effusion if no improvement with dialysis Will not do any further interventions regarding the left lung Left lung is likely trapped No need for any further antibiotics at this point in time Nephrology is following as well Not a candidate for thoracoscopic evaluation of the left lung due to his comorbidities Plan is for [facility] upon discharge
[2023-02-06 19:29] LABS: Glucose,Whole Blood 149 mg/dL (70-110)
[2023-02-06] MEDS: MELATONIN 5 MG TABLET PO SCH (20:03)
[2023-02-07] MEDS: LEVOTHYROXINE 50 MCG TAB PO SCH (00:46)
[2023-02-07] MEDS: HYDROmorphone 1 MG/ML 1 ML SYRINGE IVP PRN ×6 (00:51→20:01)
[2023-02-07] MEDS: ONDANSETRON 4 MG/2 ML VIAL IVP PRN ×3 (00:52→17:16)
[2023-02-07] MEDS: ACETAMINOPHEN TAB 325 MG TAB PO PRN (03:41)
[2023-02-07] MEDS: guaiFENesin SYRUP 100MG/5ML 200 MG/10 ML CUP PO PRN ×2 (04:56→12:57)
[2023-02-07] MEDS: hydrOXYzine HCL 25 MG TAB PO PRN ×2 (04:56→15:22)
[2023-02-07] MEDS: MAG HYDROX/AL HYDROX/SIMETH 30 ML CUP PO PRN (04:56)
[2023-02-07 06:15] LABS: Glucose,Whole Blood 119 mg/dL (70-110)
[2023-02-07] MEDS: LACTATED RINGERS 1,000 ML IV SCH (06:21)
[2023-02-07] MEDS: INSULIN ASPART (NovoLOG) 100 UNIT/ML VIAL SQ SCH ×3 (06:22→17:15)
[2023-02-07] MEDS: ARTIFICIAL TEARS-HYPROMELLOSE DROPS 15 ML BTL BOTH EYES SCH ×2 (06:23→15:17)
[2023-02-07 08:38] LABS: Basophils # (A) 0.04 X 10*3/uL (0.00-0.10); Basophils % (A) 0.6 %; Eosinophils # (A) 0.19 X 10*3/uL (0.04-0.35); HCT 26.2 % (39.6-50.0); HGB 8.1 g/dL (13.0-17.0); Lymphocytes # (A) 0.73 X 10*3/uL (0.90-5.00); Lymphocytes % (A) 11.4 %; MCH 30.5 pg (27.0-32.0); MCHC 30.9 g/dL (32.0-37.0); MCV 98.5 FL (80.0-97.0); Mean Platelet Volume 9.9 FL (9.5-12.2); Monocytes # (A) 0.52 X 10*3/uL (0.20-1.00); Monocytes % (A) 8.2 %; NRBC Per 100 WBC 0 X 10*3/uL (0.00-0.01); Neutrophils # (A) 4.84 X 10*3/uL (1.80-7.70); Neutrophils % (A) 75.9 %; Platelet Count 205 X 10*3/uL (140-440); RBC 2.66 X 10*6/uL (4.40-5.60); RDW 16.1 % (11.5-14.5); WBC 6.38 X 10*3/uL (4.50-10.00)
[2023-02-07 08:42] LABS: BUN/Creat Ratio 5.84 Ratio (12.00-20.00); Blood Urea Nitrogen 18.1 mg/dL (9.0-27.0); Calcium 8.3 mg/dL (8.7-10.3); Carbon Dioxide 26.4 mmol/L (21.6-31.8); Chloride 99 mmol/L (96-109); Glucose 132 mg/dL (70-110); Magnesium 2.6 mg/dL (1.5-2.4); Potassium 4.9 mmol/L (3.5-5.5); Sodium 135 mmol/L (135-145)
[2023-02-07] MEDS: LACTULOSE 20 GM/30 ML CUP PO SCH (08:56)
[2023-02-07] MEDS: FOLIC ACID-VIT B COMPLEX-VIT C 1 CAP PO SCH (08:56)
[2023-02-07] MEDS: SENNOSIDES-DOCUSATE SODIUM 1 EACH TAB PO SCH (08:56)
[2023-02-07] MEDS: FAMOTIDINE 20 MG/2 ML VIAL IV SCH ×2 (08:57→20:02)
[2023-02-07] MEDS: MONTELUKAST 10 MG TAB PO SCH (08:57)
[2023-02-07] MEDS: ENOXAPARIN 100 MG/ML SYRINGE SQ SCH (08:57)
[2023-02-07] MEDS: QUEtiapine 25 MG TAB PO SCH ×2 (08:57→20:02)
[2023-02-07] MEDS: allopurinoL 100 MG TAB PO SCH (08:57)
[2023-02-07] MEDS: MENTHOL-ZINC OXIDE OINT 113 GM TUBE TOPICAL SCH (08:58)
[2023-02-07] MEDS: METHYL SALICYLATE-MENTHOL OINT (3 OZ TUBE) TOPICAL PRN ×2 (08:58→17:17)
[2023-02-07] MEDS: PANTOPRAZOLE SODIUM 40 MG GRANULE PKT PO SCH (08:58)
[2023-02-07] MEDS: IPRATROPIUM-ALBUTEROL 3 ML NEB INHALATION SCH ×4 (09:19→21:39)
[2023-02-07] MEDS: BUDESONIDE 1 MG/2 ML NEBU INHALATION SCH ×2 (09:20→21:39)
--- NOTE | 2023-02-07 11:36 | P.PN ---
Subjective Patient is seen for follow-up for end-stage renal disease. Complaining of pain in the chest area while coughing. Status post hemodialysis yesterday with UF of 2.4 L. Objective - Vital Signs Vital signs: Vital Signs Temp 98.4 F 02/07/23 07:39 Pulse 88 02/07/23 09:32 Resp 20 02/07/23 07:39 BP 130/66 02/07/23 07:39 Pulse Ox 100 02/07/23 09:20 FiO2 Intake & Output 02/06/23 02/07/23 02/07/23 18:59 06:59 18:59 Intake Total 400 240 Output Total 2400 Balance -1999 240 Weight 120.202 kg Intake: Oral 240 Hemodialysis 400 Output: Hemodialysis 2400 Other: Voiding Method Diaper Diaper # Voids 0 - Exam Patient is awake, comfortable, alert oriented 3. No acute distress slight examination of the heart S1 and S2 Examination of the lungs shows decreased breath sounds at the bases Abdomen is soft nontender Examination of lower extremity shows trace edema bilaterally. Patient has left hemiparesis. - Labs CBC & Chem 7: 02/07/23 05:17 02/07/23 05:17 Labs: Abnormal Lab Results - Last 24 Hours (Table) 02/06/23 02/06/23 02/06/23 Range/Units 11:37 16:11 19:26 RBC (4.40-5.60) X 10*6/uL Hgb (13.0-17.0) g/dL Hct (39.6-50.0) % MCV (80.0-97.0) FL MCHC (32.0-37.0) g/dL RDW (11.5-14.5) % Immature Gran # (0.00-0.04) X 10*3/uL Lymphocytes # (0.90-5.00) X 10*3/uL Creatinine (0.6-1.5) mg/dL Est GFR (CKD-EPI) (>=60) BUN/Creatinine Ratio (12.00-20.00) Ratio Glucose (70-110) mg/dL POC Glucose (mg/dL) 123 H 133 H 149 H (70-110) mg/dL Calcium (8.7-10.3) mg/dL Magnesium (1.5-2.4) mg/dL 02/07/23 02/07/23 02/07/23 Range/Units 05:17 05:17 06:14 RBC 2.66 L (4.40-5.60) X 10*6/uL Hgb 8.1 L (13.0-17.0) g/dL Hct 26.2 L (39.6-50.0) % MCV 98.5 H (80.0-97.0) FL MCHC 30.9 L (32.0-37.0) g/dL RDW 16.1 H (11.5-14.5) % Immature Gran # 0.06 H (0.00-0.04) X 10*3/uL Lymphocytes # 0.73 L (0.90-5.00) X 10*3/uL Creatinine 3.1 H (0.6-1.5) mg/dL Est GFR (CKD-EPI) 22 L (>=60) BUN/Creatinine Ratio 5.84 L (12.00-20.00) Ratio Glucose 132 H (70-110) mg/dL POC Glucose (mg/dL) 119 H (70-110) mg/dL Calcium 8.3 L (8.7-10.3) mg/dL Magnesium 2.6 H (1.5-2.4) mg/dL Microbiology - Last 24 Hours (Table) 02/01/23 13:30 Acid Fast Bacilli Smear - Preliminary Bronchoalviolar Lavage - Left 02/01/23 13:30 Gram Stain - Final Bronchoalviolar Lavage - Left Bronchial Washings Culture - Final Nataliya albicans Assessment and Plan Assessment: 1. End-stage renal disease on hemodialysis on a Sunday schedule via left IJ permacath. Patient dialyzes out of [place] 2. Volume overload my improved 3. Acute hypoxic respiratory failure secondary to volume overload and left lung opacification secondary to mucous plug. Status post bronchoscopy today with BAL with the removal of large amounts of mucous plug. RSV positive 4. Anemia of chronic disease , iron replete. 5. History of CVA with left hemiparesis 6. RSV infection with left lung collapse status post bronchoscopy and bronchoalveolar lavage 2 Plan: Hemodialysis in a.m. with goal UF 1-2 L as tolerated.
[2023-02-07 11:59] LABS: Glucose,Whole Blood 205 mg/dL (70-110)
--- NOTE | 2023-02-07 13:40 | P.DS ---
Providers Date of admission: 01/27/23 20:29 Expected date of discharge: 02/07/23 Attending physician: Michael Garcia Consults: 01/27/23 20:29 Consult Physician Routine Consulting Provider: Dori Roque Consult Reason/Comments: pleural effusion Do you want consulting provider notified?: Yes, Notify in am Consult Physician Urgent Consulting Provider: Lupis Sahu Consult Reason/Comments: dialysis patient Do you want consulting provider notified?: Yes, Notify in am Primary care physician: Physician Nonstaff Hospital Course: Final diagnosis Discharge disposition Patient is being discharged in a stable condition with guarded prognosis to [facility]. Patient will follow-up with Dr. Eamon Darling in the [facility] [place] in the outpatient setting upon discharge. Patient is to continue with hemodialysis as scheduled for Sunday//Sunday with tomorrow being next session. Patient to follow-up with pulmonary outpatient as well. Total time taken is greater than 35 minutes. Hospital course This is a 62-year-old male who was recently admitted with increased shortness of breath and sent here from [facility] as they were at capacity as patient was in the [facility] [place] and has been residing at an [facility] in [place] with plans on returning there. Patient was brought here for nephrology and pulmonary evaluation for left-sided pleural effusion and complete opacification on the left and underwent 2 bronchoscopies with significant amount of mucus plugging removed and BAL and cultures have been negative. Patient was continued on empiric Levaquin and has completed the course and antibiotics have been discontinued. Patient continues on breathing inhalational treatments along with 3 L of oxygen via nasal cannula and needs outpatient follow-up with pulmonary. Patient appears to have chronic effusions per pulmonary and feels the left lung is trapped and would not benefit from a thoracentesis. Minimal fluid noted on the right and will not be undergoing thoracentesis for this as well. Patient to continue on hemodialysis with plans of repeat dialysis to continue Sunday//Sunday starting tomorrow. Patient was also noted to be RSV positive on admission. Patient with significant left hip pain and recommending off loading and frequent position changes although patient has been refusing. Patient required insurance authorization which was obtained and patient will be going to [facility]. Please refer to the consultation notes for further HPI. Patient does chronically see pain management outpatient for his chronic back pain and is on oral Dilaudid in the outpatient setting. Patient to continue following with pain management outpatient. Currently no reports of chest pain, no worsening shortness of breath, or palpitations. Patient is afebrile. No reports of nausea or vomiting and patient is tolerating diet. Patient will be going to [facility] today. Extremely guarded prognosis with significant comorbidities and overall poor quality of life. Patient is high risk for readmissions given his noncompliance and significant comorbidities. Physical exam: Gen: This is a 62-year-old male who is awake, alert and oriented 3, well- developed, well-nourished, obese, appears a than stated age HEENT: Head is atraumatic, normocephalic. Pupils equal, round. Sclerae is anicteric. NECK: Supple. No JVD. No lymphadenopathy. No thyromegaly. LUNGS: Diminished breath sounds bilaterally worse on the left with some scattered rhonchi noted No intercostal retractions. HEART: S1, S2 are muffled ABDOMEN: Soft. Obese. Bowel sounds are present. No masses. No tenderness. EXTREMITIES: No pedal edema. No calf tenderness. NEUROLOGICAL: Patient is awake, alert and oriented x3. Cranial nerves 2 through 12 are grossly intact. Diffusely weak Please refer to medication reconciliation sheet for a list of medications. The impression and plan of care has been dictated by Keila Hurst, Nurse Practitioner as directed. Dr. Jose MD I have performed a history and examination and MDM of this patient, discussed the same with the dictator, and agree with the dictator's assessment and plan as written ,documented as a scribe. Based on total visit time, I have performed more than 50% of the visit. Patient Condition at Discharge: Fair Plan - Discharge Summary Discharge Rx Participant: Yes New Discharge Prescriptions: New Ipratropium-Albuterol Nebulize [Duoneb 0.5 mg-3 mg/3 ml Soln] 3 ml INHALATION RT-QID PRN each PRN Reason: Shortness Of Breath Or Wheezing Mag Hydrox/Al Hydrox/Simeth [Maalox] 30 ml PO Q6HR PRN ml PRN Reason: Gi Upset guaiFENesin SYRUP 100MG/5ML [Robitussin] 100 mg PO Q6HR PRN ml PRN Reason: Cough Albuterol Nebulized [Ventolin Nebulized] 2.5 mg INHALATION RT-QID PRN ml PRN Reason: Shortness Of Breath Or Wheezing Ondansetron Odt [Zofran Odt] 4 mg PO Q8HR PRN #20 tab PRN Reason: Nausea hydrOXYzine HCL [Atarax] 50 mg PO TID PRN tab PRN Reason: Anxiety Ipratropium-Albuterol Nebulize [Duoneb 0.5 mg-3 mg/3 ml Soln] 3 ml INHALATION RT-QID each INSULIN ASPART (NovoLOG) [NovoLOG (formulary)] 0 unit SQ ACHS each Pantoprazole Sodium [Protonix] 40 mg PO DAILY #30 tab Budesonide [Pulmicort] 1 mg INHALATION RT-BID ml Continue Midodrine HCl [ProAmatine] 10 mg PO Q6H PRN PRN Reason: sbp <100 guaiFENesin [guaiFENesin Oral Solution] 200 mg PO Q8H PRN PRN Reason: Cough bisacodyL [Dulcolax] 10 mg RECTAL DAILY PRN PRN Reason: Constipation Cyclobenzaprine [Flexeril] 10 mg PO Q8H PRN PRN Reason: Pain Albuterol Inhaler [Ventolin Hfa Inhaler] 1 - 2 puff INHALATION RT-Q6H PRN PRN Reason: Shortness Of Breath Acetaminophen Tab [Tylenol] 650 mg PO Q4H PRN PRN Reason: Pain Or Fever > 100.5 Cuming-Caps 1 cap PO DAILY@0800 Sennosides/Docusate Sodium [Senna Plus 8.6-50 mg Softgel] 3 tab PO BID@799,1999 QUEtiapine [SEROquel] 25 mg PO BID@0800,1999 Levothyroxine Sodium [Synthroid] 50 mcg PO HS@2200 Montelukast [Singulair] 10 mg PO DAILY@0800 polyethylene glycoL 3350 [Miralax] 17 gm PO DAILY PRN PRN Reason: Constipation Ondansetron [Zofran] 4 mg PO Q8HR PRN PRN Reason: Nausea Na Phos,M-B/Na Phos,Di-Ba [Fleet Adult] 133 ml RECTAL DAILY PRN PRN Reason: Constipation Lanthanum Carbonate [Lanthanum Carbonate Chew] 1,500 mg PO TID- W/MEALS@ Peg 400/Hypromellose/Glycerin [Artificial Tears Drops] 1 drop BOTH EYES TID@0600,1400,2200 Ensure 1 can PO TID-W/MEALS@, Menthol [Biofreeze] 1 applic TOPICAL BID Lactulose [Constulose] 20 gm PO BID@799,1999 Apixaban [Eliquis] 2.5 mg PO BID@799,1999 Omeprazole 20 mg PO DAILY@0800 Melatonin [Melatonin ER] 10 mg PO HS@1999 allopurinoL [Zyloprim] 100 mg PO DAILY@799 Sodium Zirconium Cyclosilicate [Lokelma] 10 gm PO HS@1999 Darbepoetin Mika [Aranesp] 40 mcg SQ Q7D HYDROmorphone [Dilaudid] 4 mg PO Q4H PRN #4 tab PRN Reason: Pain Discontinued hydrOXYzine HCL 10 mg PO Q8H PRN PRN Reason: ANXIETY/ITCHING Insulin Lispro [humaLOG Kwikpen] See Protocol SQ TID-W/MEALS@ Discharge Medication List Acetaminophen Tab [Tylenol] 650 mg PO Q4H PRN 01/28/23 [History] Albuterol Inhaler [Ventolin Hfa Inhaler] 1 - 2 puff INHALATION RT-Q6H PRN 01/28/23 [History] Apixaban [Eliquis] 2.5 mg PO BID@0800,199901/28/23 [History] Cyclobenzaprine [Flexeril] 10 mg PO Q8H PRN 01/28/23 [History] Darbepoetin Mika [Aranesp] 40 mcg SQ Q7D 01/28/23 [History] Ensure 1 can PO TID-W/MEALS@01/28/23 [History] Lactulose [Constulose] 20 gm PO BID@0800,199901/28/23 [History] Lanthanum Carbonate [Lanthanum Carbonate Chew] 1,500 mg PO TID-W/MEALS@,,01/28/23 [History] Levothyroxine Sodium [Synthroid] 50 mcg PO HS@219901/28/23 [History] Melatonin [Melatonin ER] 10 mg PO HS@199901/28/23 [History] Menthol [Biofreeze] 1 applic TOPICAL BID 01/28/23 [History] Midodrine HCl [ProAmatine] 10 mg PO Q6H PRN 01/28/23 [History] Montelukast [Singulair] 10 mg PO DAILY@0800 01/28/23 [History] Na Phos,M-B/Na Phos,Di-Ba [Fleet Adult] 133 ml RECTAL DAILY PRN 01/28/23 [History] Omeprazole 20 mg PO DAILY@0800 01/28/23 [History] Ondansetron [Zofran] 4 mg PO Q8HR PRN 01/28/23 [History] Peg 400/Hypromellose/Glycerin [Artificial Tears Drops] 1 drop BOTH EYES TID@0600,1400,2200 01/28/23 [History] QUEtiapine [SEROquel] 25 mg PO BID@0800,199901/28/23 [History] Cuming-Caps 1 cap PO DAILY@0800 01/28/23 [History] Sennosides/Docusate Sodium [Senna Plus 8.6-50 mg Softgel] 3 tab PO BID@0800,199901/28/23 [History] Sodium Zirconium Cyclosilicate [Lokelma] 10 gm PO HS@199901/28/23 [History] allopurinoL [Zyloprim] 100 mg PO DAILY@0800 01/28/23 [History] bisacodyL [Dulcolax] 10 mg RECTAL DAILY PRN 01/28/23 [History] guaiFENesin [guaiFENesin Oral Solution] 200 mg PO Q8H PRN 01/28/23 [History] polyethylene glycoL 3350 [Miralax] 17 gm PO DAILY PRN 01/28/23 [History] Albuterol Nebulized [Ventolin Nebulized] 2.5 mg INHALATION RT-QID PRN ml 02/07/23 [Rx] Budesonide [Pulmicort] 1 mg INHALATION RT-BID ml 02/07/23 [Rx] HYDROmorphone [Dilaudid] 4 mg PO Q4H PRN #4 tab 02/07/23 [Rx] INSULIN ASPART (NovoLOG) [NovoLOG (formulary)] 0 unit SQ ACHS each 02/07/23 [Rx] Ipratropium-Albuterol Nebulize [Duoneb 0.5 mg-3 mg/3 ml Soln] 3 ml INHALATION RT-QID each 02/07/23 [Rx] Ipratropium-Albuterol Nebulize [Duoneb 0.5 mg-3 mg/3 ml Soln] 3 ml INHALATION RT-QID PRN each 02/07/23 [Rx] Mag Hydrox/Al Hydrox/Simeth [Maalox] 30 ml PO Q6HR PRN ml 02/07/23 [Rx] Ondansetron Odt [Zofran Odt] 4 mg PO Q8HR PRN #20 tab 02/07/23 [Rx] Pantoprazole Sodium [Protonix] 40 mg PO DAILY #30 tab 02/07/23 [Rx] guaiFENesin SYRUP 100MG/5ML [Robitussin] 100 mg PO Q6HR PRN ml 02/07/23 [Rx] hydrOXYzine HCL [Atarax] 50 mg PO TID PRN tab 02/07/23 [Rx] Follow up Appointment(s)/Referral(s): Nonstaff,Physician [Primary Care Provider] - 1-2 days (Please call a primary care provider for follow-up appointment.) Activity/Diet/Wound Care/Special Instructions: [facility] rehab Discharge Disposition: TRANSFER TO SNF/F
--- NOTE | 2023-02-07 13:48 | P.PN ---
Subjective Progress Note Date: 02/07/23 This is a 62-year-old male patient with a known history of CVA with left-sided weakness, diabetes mellitus, chronic obstructive pulmonary disease, end-stage renal disease receiving hemodialysis, anxiety/depression, previous pleural effusions with thoracentesis most recently 3 weeks ago at [facility] in [place]. Yesterday he was seen at a outside hospital and chest x-ray revealed near complete opacification of the left lung. He was to be transferred to back to [facility] however no beds were available and he was transferred here. Chest x-ray reveals a large left and small right pleural effusion. Hemodialysis catheter in the right chest. White count 5.6. Hemoglobin 7.9. Platelets 241. Sodium 135. Potassium 3.6. Bicarb 30. BUN 9. Creatinine 1.83. Glucose 118. He is seen today in consultation on the regular medical floor. He is currently resting fairly comfortably in bed. Awake and alert in no acute distress. He is maintaining O2 saturations up to 100% on 5 L/m per nasal cannula. His been afebrile. Hemodynamically stable. He has been basically bedbound and is difficult to sit up. He has pressure ulcers as well. The patient is seen today 01/29/2023 in follow-up on the regular medical floor. He is resting comfortably in bed. Awake and alert in no acute distress. Maintaining O2 saturations up to 100% on 5 L/m per nasal cannula. He's been afebrile. Hemodynamically stable. Chest x-ray had revealed near complete white out of the left hemithorax. Ultrasound did not reveal any significant pleural effusion. He did undergo bronchoscopy with BAL with Dr. Oliver today. Large amount of mucous plug was removed from the left mainstem bronchus. Fluid analysis and cytology pending. Follow-up chest x-ray pending. He is continued on bronchodilators. The patient is seen today 01/30/2023 in follow-up on the regular medical floor. He is currently resting comfortably in bed. Awake and alert in no acute distress. Currently receiving hemodialysis. His chest x-ray showed some improvement in density of the left lung post bronchoscopy. Not a significant am ount of improvement however. Bronchial wash cultures and cytology pending. Viral screen is positive for RSV. White count 5.9. Hemoglobin 7.0. Platelets 188. Sodium 135. Potassium 3.3. Bicarb 27. BUN 12. Creatinine 2.21. Glucose 126. He remains on bronchodilators. Lovenox for anticoagulation. The patient is seen today 01/31/2023 in follow-up on the regular medical floor. He is currently resting comfortably in bed. Maintaining O2 saturations up to 100% on 5 L/m per nasal cannula. He denies any worsening shortness of breath or congestion. His chest x-ray continues to show ongoing weight O and volume loss of the left hemithorax. Extensive consolidation throughout the right lung similar to slightly worsened. The plan will be for repeat bronchoscopy tomorrow. I count 5.1. Hemoglobin 6.5. Platelets 183. Sodium 136. Potassium 3.6. Bicarb 29. BUN 11. Creatinine 2.2. Glucose 157. He is continued on Levaquin. Continued on bronchodilators. Lovenox for anticoagulation. The patient is seen today 02/01/2023 in follow-up on the regular medical floor. He is awake and alert in no acute distress. He is maintaining O2 saturations again up to 100% on 5 L/m per nasal cannula. He is afebrile. Hemodynamically stable. Chest x-ray continues to show a large left complete opacification of left hemothorax. Ultrasound had revealed no fluid. He had undergone bronchosco py with BAL and significant amount of secretions were removed with the plan is for repeat bronchoscopy today. Receiving hemodialysis today as well. He is status post 1 unit of packed red blood cells this admission. Count 4.1. Hemoglobin 8.8. Platelets 181. Sodium 135. Potassium 3.8. Bicarb 30. BUN 16. Creatinine 3.13. Glucose 102. He remains on antibiotics in the form of Levaquin. Continue bronchodilators. Therapeutic Lovenox. The patient is seen today 02/02/2023 in follow-up on the regular medical floor. He is awake and alert in no acute distress. Maintaining O2 saturations in the 90s on 4 L/m per nasal cannula. X-ray reveals large left and small right pleural effusions. Right central venous catheter in position. The patient has undergone 2 bronchoscopies with BAL's impressions this admission. Told she revealed no evidence of malignancy. The second bronchoscopy just revealed a large blood clot in the left mainstem bronchus which was removed completely. Bronchial cultures revealed no growth. They were positive for RSV. He is status post 1 unit of packed red blood cells this admission. Current hemoglobin 9.3. Platelets 142. White count 5.7. Sodium 135. Potassium 4.1 bicarb 28. BUN 15. Creatinine 2.42. Glucose 126. He had undergone hemodialysis yesterday with 2 L of ultrafiltration. Plan is to continue Sunday schedule. He remains on antibiotics in the form of Levaquin. Continued on bronchodilators. The patient is seen today 02/03/2023 in follow-up on the regular medical floor. He is currently resting comfortably in bed. Awake and alert in no acute distress. Maintaining O2 saturations in the 90s on 2 L/m per nasal cannula. He is currently receiving hemodialysis. Status post 1 unit of packed red blood cells this admission. Today's labs are pending. Bronchial wash cultures revealed no growth. No AFB. Blood sugar 175. He is continued on Levaquin. Remains on therapeutic Lovenox. The patient is seen today 02/04/2023 in follow-up on the regular medical floor. He continues to rest comfortably in bed. Awake and alert in no acute distress. Maintaining O2 saturations up to 100% on 2 L/m per nasal cannula. Chest x-ray is showing improved aeration in the right lung. Left pleural effusion remains. Central venous catheter in place. Bronchial wash cultures were positive for Nataliya only. Glucose 185. He received hemodialysis yesterday. 2.4 L of fluid removed. He remains on therapeutic Lovenox. Continued on bronchodilators, Singulair, Levaquin. On today's evaluation of 02/06/2023, the patient is being seen for a follow-up. The patient is resting comfortably in bed and the patient is undergoing hemodialysis with a goal of 2 L of ultrafiltration. The patient has dialysis dependent renal failure. Is currently on oxygen 2 L/m nasal cannula. I reviewed the chest x-ray and I also reviewed the CAT scan of the chest pain noted the patient has undergone 2 bronchoscopies, cultures are negative for any bacterial growth. He was positive for Nataliya. The patient was unable to achieve expansion of the left lung. Based on the CAT scan of the chest, the patient has bilateral pleural effusion. The effusion on the left is somewhat chronic and there is a pleural thickening around the pleural fluid indicating a chronic effusion. There is complete atelectasis of the left lung. Suspect the left lung being trapped. There is also mild pulmonary vessel congestion and changes related to liver cirrhosis. Despite the complete atelectasis of the left lung, the patient is not having any mediastinal distress at rest. The white cell count of 5.7, hemoglobin was at 8, BUN is at 26 and a creatinine of 3.6 and his sodium level is at 138 with a potassium level of 5.0. Noted the patient has multiple medical problems and comorbidities. The patient has COPD with end-stage renal disease on hemodialysis, he has undergone previous thoracentesis approxim he is on bronchodilators with DuoNeb, is also on Pulmicort Respules, no antibiotic coverage for the time being. ately 3 weeks ago at another hospital. The pleural effusion on the left is likely chronic. The right sided pleural fluid is more of a free-flowing. Is also known to have CVA with left-sided weakness and is quite debilitated and bedridden. He is bedbound. On today's evaluation of 02/07/2023, the patient remains on oxygen on 4 L with a pulse ox of 99%. He has bedridden. He has incisional disease and his last hemodialysis session was done yesterday. Please refer to my evaluation done yesterday. As mentioned earlier, the patient has chronic atelectasis of the left lung, probably a trapped left lung with a chronic left-sided pleural effusion with a well-formed pocket. Previous thoracentesis attempts have failed to drain any fluid. Otherwise, the patient is doing well. BUN is at 18 with a creatinine of 3.1. Sodium is at 135 with a potassium level of 4.5. Her white cycles of 6.3 with a hemoglobin of 8.1. He is afebrile and hemodynamically stable. Objective - Vital Signs Vital signs: Vital Signs Temp 98.4 F 02/07/23 07:39 Pulse 88 02/07/23 09:32 Resp 16 02/07/23 08:00 BP 130/66 02/07/23 07:39 Pulse Ox 100 02/07/23 09:20 FiO2 Intake & Output 02/06/23 02/07/23 02/07/23 18:59 06:59 18:59 Intake Total 400 240 Output Total 2400 Balance -1999 240 Weight 120.202 kg Intake: Oral 240 Hemodialysis 400 Output: Hemodialysis 2400 Other: Voiding Method Diaper Diaper Diaper # Voids 0 - Exam GENERAL EXAM: Alert, 62-year-old male, on 2 L nasal cannula, in no apparent distress. HEAD: Normocephalic. EYES: Normal reaction of pupils, equal size. NOSE: Clear with pink turbinates. THROAT: No erythema or exudates. NECK: No masses, no JVD. CHEST: No chest wall deformity. Hemodialysis catheter in place. LUNGS: Equal air entry with scattered rhonchi bilaterally left greater than right. CVS: S1 and S2 normal with no audible murmur, regular rhythm. ABDOMEN: No hepatosplenomegaly, normal bowel sounds, no guarding or rigidity. SPINE: No scoliosis or deformity SKIN: No rashes CENTRAL NERVOUS SYSTEM: No focal deficits, tone is normal in all 4 extremities. EXTREMITIES: There is no peripheral edema. No clubbing, no cyanosis. Peripheral pulses are intact. - Labs CBC & Chem 7: 02/07/23 05:17 02/07/23 05:17 Labs: Abnormal Lab Results - Last 24 Hours (Table) 02/06/23 02/06/23 02/07/23 Range/Units 16:11 19:26 05:17 RBC 2.66 L (4.40-5.60) X 10*6/uL Hgb 8.1 L (13.0-17.0) g/dL Hct 26.2 L (39.6-50.0) % MCV 98.5 H (80.0-97.0) FL MCHC 30.9 L (32.0-37.0) g/dL RDW 16.1 H (11.5-14.5) % Immature Gran # 0.06 H (0.00-0.04) X 10*3/uL Lymphocytes # 0.73 L (0.90-5.00) X 10*3/uL Creatinine (0.6-1.5) mg/dL Est GFR (CKD-EPI) (>=60) BUN/Creatinine Ratio (12.00-20.00) Ratio Glucose (70-110) mg/dL POC Glucose (mg/dL) 133 H 149 H (70-110) mg/dL Calcium (8.7-10.3) mg/dL Magnesium (1.5-2.4) mg/dL 02/07/23 02/07/23 02/07/23 Range/Units 05:17 06:14 11:58 RBC (4.40-5.60) X 10*6/uL Hgb (13.0-17.0) g/dL Hct (39.6-50.0) % MCV (80.0-97.0) FL MCHC (32.0-37.0) g/dL RDW (11.5-14.5) % Immature Gran # (0.00-0.04) X 10*3/uL Lymphocytes # (0.90-5.00) X 10*3/uL Creatinine 3.1 H (0.6-1.5) mg/dL Est GFR (CKD-EPI) 22 L (>=60) BUN/Creatinine Ratio 5.84 L (12.00-20.00) Ratio Glucose 132 H (70-110) mg/dL POC Glucose (mg/dL) 119 H 205 H (70-110) mg/dL Calcium 8.3 L (8.7-10.3) mg/dL Magnesium 2.6 H (1.5-2.4) mg/dL Microbiology - Last 24 Hours (Table) 02/01/23 13:30 Acid Fast Bacilli Smear - Preliminary Bronchoalviolar Lavage - Left 02/01/23 13:30 Gram Stain - Final Bronchoalviolar Lavage - Left Bronchial Washings Culture - Final Nataliya albicans Assessment and Plan Plan: Acute hypoxemic respiratory failure secondary to near complete opacification of the left lung. Ultrasound revealed no fluid. He did undergo bronchoscopy with BAL with large amounts of mucous plugs removed from the left mainstem bronchus 01/29/2023. Cultures revealed no growth. Cytology negative for malignancy. Viral culture positive for RSV. Pro-calcitonin 0.45. Initiated on Levaquin 500 mg every other day. Follow-up chest x-ray continues to show near complete opacification of the left lung with infiltrates in the right. Bronchoscopy from 02/01/2023 revealed evidence of a large blood clot in the left mainstem bronchus that was completely removed and airways appeared open. Cultures positive for Nataliya only. Follow-up chest x-ray continues to show opacification of the left lung. As such, it is likely due to the left lung is trapped. The patient u ndergone bronchoscopy that was essentially nonsuccessful 2. As for the left- sided pleural fluid, this has a thick pleural marking/lining and this indicates a chronic left-sided pleural effusion probably related to chronic pleuritis. Respiratory syncytial virus found on bronchoscopy with BAL History of pleural effusions with previous thoracentesis most recently 3 weeks ago at [facility] and [place] End-stage renal disease receiving hemodialysis for approximately 3 years Acute anemia of suspected chronic disease and hemoglobin today 6.5, received 1 unit of packed red blood cells at current hemoglobin 9.3 History of CVA with left-sided weakness Left hip pain secondary to pressure ulcers, x-ray revealed no fracture or graft diabetes mellitus History of gastric esophageal reflux disease History of DVT History of spinal cord stimulator History of anxiety/depression senior living resident, basically bedbound pressure ulcers Plan: Overall respiratory status is stable and the patient is on 4 L of oxygen nasal cannula We'll try to wean it down further as long as the pulse ox remained above 90%. Current pulse ox is 99% Continue hemodialysis per nephrology, lasting without syncytial was done yesterday The right-sided pleural effusion is free flowing and anticipate improvement with hemodialysis Will not do any further interventions regarding the left lung Left lung is likely trapped No need for any further antibiotics at this point in time Nephrology is following as well Not a candidate for thoracoscopic evaluation of the left lung due to his comorbidities Plan is for [facility] upon discharge
[2023-02-07 15:56] VITALS: BP 118/70; RESP 20; TEMP 98.5
[2023-02-07 16:56] LABS: Glucose,Whole Blood 156 mg/dL (70-110)
[2023-02-07 17:05] VITALS: PULSE 88
== END 2023-02-07 20:32 | DRG 205 ==
LOC: EC 18:57 → 4SSUR 20:29
PROVIDERS: ADMIT Hospitalist; ATTEND Hospitalist
PROC: 5A1D70Z Performance of Urinary Filtration, Intermittent, Less than 6 Hours Per Day (ICD-10-PCS; 2023-01-29)
PROC: 0B9H8ZX Drainage of Lung Lingula, Via Natural or Artificial Opening Endoscopic, Diagnostic (ICD-10-PCS; principal; 2023-01-29 07:30)
PROC: 0BC78ZZ Extirpation of Matter from Left Main Bronchus, Via Natural or Artificial Opening Endoscopic (ICD-10-PCS; principal; 2023-01-29 07:30)
PROC: 0BC18ZZ Extirpation of Matter from Trachea, Via Natural or Artificial Opening Endoscopic (ICD-10-PCS; principal; 2023-01-29 07:30)
PROC: 30233N1 Transfusion of Nonautologous Red Blood Cells into Peripheral Vein, Percutaneous Approach (ICD-10-PCS; 2023-01-31)
PROC: 0BD78ZX Extraction of Left Main Bronchus, Via Natural or Artificial Opening Endoscopic, Diagnostic (ICD-10-PCS; 2023-02-01 12:35)
PROC: 0BC88ZZ Extirpation of Matter from Left Upper Lobe Bronchus, Via Natural or Artificial Opening Endoscopic (ICD-10-PCS; 2023-02-01 12:35)
PROC: 0BC98ZZ Extirpation of Matter from Lingula Bronchus, Via Natural or Artificial Opening Endoscopic (ICD-10-PCS; 2023-02-01 12:35)
PROC: 0BC78ZZ Extirpation of Matter from Left Main Bronchus, Via Natural or Artificial Opening Endoscopic (ICD-10-PCS; 2023-02-01 12:35)
PROC: 0BCB8ZZ Extirpation of Matter from Left Lower Lobe Bronchus, Via Natural or Artificial Opening Endoscopic (ICD-10-PCS; 2023-02-01 12:35)
PROC: 0B9J8ZX Drainage of Left Lower Lung Lobe, Via Natural or Artificial Opening Endoscopic, Diagnostic (ICD-10-PCS; 2023-02-01 12:35)
PROC: 05H933Z Insertion of Infusion Device into Right Brachial Vein, Percutaneous Approach (ICD-10-PCS; 2023-02-02)
DX: T17.998A Other foreign object in respiratory tract, part unspecified causing other injury, initial encounter (principal); B37.1 Pulmonary candidiasis; J18.9 Pneumonia, unspecified organism; N18.6 End stage renal disease; J96.21 Acute and chronic respiratory failure with hypoxia; J90 Pleural effusion, not elsewhere classified; I12.0 Hypertensive chronic kidney disease with stage 5 chronic kidney disease or end stage renal disease; J44.1 Chronic obstructive pulmonary disease with (acute) exacerbation; I69.354 Hemiplegia and hemiparesis following cerebral infarction affecting left non-dominant side; R18.8 Other ascites; J98.11 Atelectasis; J98.19 Other pulmonary collapse; J94.2 Hemothorax; E66.9 Obesity, unspecified; Z68.34 Body mass index [BMI] 34.0-34.9, adult; D63.1 Anemia in chronic kidney disease; G89.4 Chronic pain syndrome; K21.9 Gastro-esophageal reflux disease without esophagitis; M54.12 Radiculopathy, cervical region; E11.51 Type 2 diabetes mellitus with diabetic peripheral angiopathy without gangrene; R13.10 Dysphagia, unspecified; K74.60 Unspecified cirrhosis of liver; E11.22 Type 2 diabetes mellitus with diabetic chronic kidney disease; Z99.2 Dependence on renal dialysis; K76.0 Fatty (change of) liver, not elsewhere classified; L89.229 Pressure ulcer of left hip, unspecified stage; B97.4 Respiratory syncytial virus as the cause of diseases classified elsewhere; M21.379 Foot drop, unspecified foot; M10.9 Gout, unspecified; J98.09 Other diseases of bronchus, not elsewhere classified; M19.90 Unspecified osteoarthritis, unspecified site; F41.9 Anxiety disorder, unspecified; E87.70 Fluid overload, unspecified; F32.A Depression, unspecified; H91.93 Unspecified hearing loss, bilateral; R53.81 Other malaise; Z11.52 Encounter for screening for COVID-19; Z91.199 Patient's noncompliance with other medical treatment and regimen due to unspecified reason; Z86.718 Personal history of other venous thrombosis and embolism; Z85.828 Personal history of other malignant neoplasm of skin; Z74.01 Bed confinement status; Z88.1 Allergy status to other antibiotic agents; Z88.5 Allergy status to narcotic agent; Z88.8 Allergy status to other drugs, medicaments and biological substances
CPT/HCPCS: 31623; 31624; 36410; 36415; 71045; 71250; 73501; 76604; 76937; 80048; 80053; 82150; 82945; 83540; 83550; 83615; 83735; 84100; 84145; 84157; 85025; 85610; 85730; 86850; 86900; 86901; 86920; 87070; 87102; 87116; 87205; 87206; 87496; 87498; 87502; 87529; 87634; 87635; 87798; 88104; 88108; 88305; 89050; 90935; 94640; 94760; 99285